=== PATIENT | female | born 1965 | race Caucasian/White ===

== ENCOUNTER 2017-11-30 12:11 | Inpatient (IN) ==
--- NOTE | 2017-11-30 12:35 | ED ---
HPI General Chief Complaint: Extremity Injury, Lower Stated Complaint: Evac/fall/lt foot injury Time Seen by Provider: 11/30/17 12:30 Source: patient and EMS Mode of arrival: wheelchair Limitations: no limitations History of Present Illness HPI Narrative: 52-year-old female patient presents to the ER today, states that she has slipped on water, fell on her bottom, and felt pain in her left foot area, states that she has neuropathy as well as a dropfoot, and she states that she was concerned because she does not feel pain very well, wants to get checked out for the injury. She denies any head injury or loss of consciousness. She denies any other injuries. She states that the left ankle and foot area looks more swollen and she cannot place weight on it. Patient usually uses a walker and ankle braces because of her drop foot bilaterally. She had just been released yesterday from [facility] because of a hand infection. Related Data Home Medications Medication Instructions Recorded Confirmed apixaban [Eliquis] 5 mg PO BID 11/30/17 11/30/17 folic acid 1 mg PO DAILY 11/30/17 11/30/17 furosemide [Lasix] 60 mg PO DAILY 11/30/17 11/30/17 levomilnacipran [Fetzima] 80 mg PO DAILY 11/30/17 11/30/17 levothyroxine [Synthroid] 88 mcg PO DAILY 11/30/17 11/30/17 metoprolol succinate 50 mg PO DAILY 11/30/17 11/30/17 ondansetron [Zofran ODT] 4 mg PO TID PRN 11/30/17 11/30/17 pantoprazole [Protonix] 40 mg PO DAILY 11/30/17 11/30/17 paroxetine HCl 7.5 mg PO DAILY 11/30/17 11/30/17 Allergies Allergy/AdvReac Type Severity Reaction Status Date / Time barium sulfate Allergy Severe Anaphylaxis Verified 11/30/17 12:28 ciprofloxacin [From Cipro] Allergy Severe Anaphylaxis Verified 11/30/17 12:28 Latex, Natural Rubber Allergy Severe Anaphylaxis Verified 11/30/17 12:28 metoclopramide [From Reglan] Allergy Severe Anaphylaxis Verified 11/30/17 12:28 Penicillins Allergy Severe Anaphylaxis Verified 11/30/17 12:28 vancomycin Allergy Severe Anaphylaxis Verified 11/30/17 12:28 Review of Systems Except as stated in HPI: all other systems reviewed are negative [facility] History History Provided By: Patient Medical History Medical History Diabetes (Acute) Hypertension (Acute) Insulin pump in place (Acute) Renal failure (Acute) Vascular dialysis catheter in place (Acute) Social History Social History Substance History: No History of Abuse Second Hand Smoke Exposure: No Smoking Status: Never smoker How Often Do You Have a Drink Containing Alcohol: Never Recent Travel in [facility] within the Last 8 Weeks: No Recent Out of Country Travel within the Last 8 Weeks: No Exam Narrative Exam Narrative: GENERAL: Well-developed middle-age female patient currently in moderate distress. Awake and oriented 3. SKIN: Focused skin assessment warm/dry. HEAD: Atraumatic. Normocephalic. EYES: Pupils equal and round. No scleral icterus. No injection or drainage. ENT: No nasal bleeding or discharge. Mucous membranes pink and moist. NECK: Trachea midline. No JVD. CARDIOVASCULAR: Regular rate and rhythm. No murmur appreciated. RESPIRATORY: No accessory muscle use. Clear to auscultation. Breath sounds equal bilaterally. GASTROINTESTINAL: Abdomen soft, non-tender, nondistended. Hepatic and splenic margins not palpable. MUSCULOSKELETAL: No obvious deformities. No clubbing. No cyanosis. No edema. EXTREMITIES: No clubbing, cyanosis, or edema. No joint tenderness, effusion, or edema noted. There is notable bilateral pitting edema of the legs, and notable invert rotation of the left ankle. There is a small laceration over the big toe on the left. NEUROLOGICAL: Awake and alert. No obvious cranial nerve deficits. Motor grossly within normal limits. Normal speech. PSYCHIATRIC: Appropriate mood and affect; insight and judgment normal. Course Hospital Course: X-rays were ordered for the left ankle and show significant fractures that entered the joint as well, and is mildly displaced. At this point, case was discussed with Dr. Kendall who recommends that we put her in a splint with best alignment possible and admit her to the main hospital since she will need further OR treatment. He also would like me to get CT of her ankle for further evaluation for treatment. Case was then discussed with Dr. Mcgregor for admission. Initial Documented Vital Signs Temperature 98.2 F 11/30/17 12:18 Pulse Rate 104 H 11/30/17 12:18 Respiratory Rate 18 11/30/17 12:18 Blood Pressure 197/84 H 11/30/17 12:18 Pulse Oximetry 96 11/30/17 12:18 Last Documented Vital Signs Temperature 98.2 F 11/30/17 12:18 Pulse Rate 104 H 11/30/17 12:18 Respiratory Rate 18 11/30/17 12:18 Blood Pressure 197/84 H 11/30/17 12:18 Pulse Oximetry 96 11/30/17 12:18 Medical Decision Making Differential Diagnosis Differential Diagnosis: Ankle strain versus fractures Imaging Data Radiologist's impression: ITS Impressions Ankle X-Ray 11/30/17 12:30 CONCLUSION: Fracture distal tibia and fibula as above Foot X-Ray 11/30/17 12:30 CONCLUSION: Fracture distal tibia and fibula as above. Discharge Plan Discharge Disposition Patient Disposition: 30 Still Patient Discharge Condition Condition: Stable Discharge Details Anticipated Discharge Date: 11/30/17 Diagnosis: Ankle fracture Physicians Team ED Provider: Margarita Wiley Primary Care Provider: Primary Care Physici,No Rxs /Orders / Referrals /Forms Prescriptions: No Action furosemide [Lasix] 40 mg Tablet 60 mg PO DAILY RF: 0 paroxetine HCl 10 mg Tablet 7.5 mg PO DAILY RF: 0 metoprolol succinate 50 mg Tablet Extended Release 24 Hr 50 mg PO DAILY RF: 0 levothyroxine [Synthroid] 88 mcg Tablet 88 mcg PO DAILY RF: 0 pantoprazole [Protonix] 40 mg Tablet,Delayed Release (Dr/Ec) 40 mg PO DAILY RF: 0 ondansetron [Zofran ODT] 4 mg Tablet,Disintegrating 4 mg PO TID PRN (Reason: Nausea) RF: 0 apixaban [Eliquis] 5 mg Tablet 5 mg PO BID RF: 0 levomilnacipran [Fetzima] 80 mg Capsule,Extended Release 24 Hr 80 mg PO DAILY RF: 0 folic acid 1 mg Tablet 1 mg PO DAILY RF: 0 Discharge Interventions Interventions: Vital Signs Last Done: 11/30/17 13:55 Status ED Status: With Doctor
--- NOTE | 2017-11-30 13:10 | XR ---
EXAM DATE: 11/30/2017 1:02 PM EDT AGE/SEX: 52 years / Female INDICATIONS: Left foot and ankle pain post falling. CLINICAL DATA: This is the patient's initial encounter. Patient reports that signs and symptoms have been present for 1 day and indicates a pain score of 9/10. MEDICAL/SURGICAL HISTORY: Diabetes. Hypertension. Renal failure . Previous ankle and foot fra cture. Left foot hardware COMPARISON: [facility], ANKLE COMPLETE LEFT MIN 3V, 11/30/2017. . FINDINGS: Osteopenia with fracture of the distal tibia and fibula with moderate angulation. Fracture line does extend into the tibial plafond. Transmetatarsal fusion noted. CONCLUSION: Fracture distal tibia and fibula as above. Electronically signed by: Joshua Machado MD 11/30/2017 1:08 PM EDT
--- NOTE | 2017-11-30 13:11 | XR ---
EXAM DATE: 11/30/2017 12:59 PM EDT AGE/SEX: 52 years / Female INDICATIONS: Left ankle and foot pain post falling. CLINICAL DATA: This is the patient's initial encounter. Patient reports that signs and symptoms have been present for 1 day and indicates a pain score of 10/10. MEDICAL/SURGICAL HISTORY: Diabetes. Hypertension. Renal failure. . Previous foot and ankle f racture. Left foot hardware. COMPARISON: [facility], FOOT COMPLETE LEFT 3V, 11/30/2017. . FINDINGS: Fracture distal tibia and fibula with a tibial component extending into the tibiotalar joint. Moderat e angulation. Talus intact. CONCLUSION: Fracture distal tibia and fibula as above Electronically signed by: Joshua Machado MD 11/30/2017 1:09 PM EDT
[2017-11-30] MEDS ORDERED: HYDROmorphone PF Inj 2 MG/ML Vial IV.PUSH ONE (13:44)
[2017-11-30] MEDS ORDERED: HYDROmorphone PF Inj 1 MG/ML Ampul IV.PUSH PRN (14:27)
[2017-11-30] MEDS ORDERED: Dextrose 50% in Water 50 ML Vial IV.PUSH PRN (14:28)
[2017-11-30 14:40] LABS: Chloride 96 meq/L (98-107); Potassium 4.4 meq/L (3.5-5.1); Sodium 133 meq/L (136-145)
--- NOTE | 2017-11-30 14:40 | P.HPIM ---
History of Present Illness Primary Care Physician: No Primary Care Physician Chief Complaint: 'I fell this morning.' History of Present Illness: patient is a 52 y/o female with history of ESRD-on HD, hypertension, diabetes, neuropathy who presented to ER after she fell earlier this morning. she was just released from [facility] after she was treated with right hand infection. she says that this morning when she was trying to go to bathroom she lost her balance and fell- after which she started to have some pain to the left ankle. she denies any syncopal episodes or any prodromal symptoms before the fall.she's on // schedule for her HD. - Diagnosis (1) Ankle fracture (2) ESRD (end stage renal disease) (3) Hypertension (4) Infection of right hand (5) Diabetes mellitus (6) DVT (deep venous thrombosis) Inpatient Certification: I certify that the inpatient services were ordered in accordance with Medicare regulations governing the order. This includes certification that hospital inpatient services are reasonable and necessary and in the case of services not specified as inpatient-only under 42 CFR 419.22(n), that they are appropriately provided as inpatient services in accordance to with the 2-midnight benchmark under 43 CFR 412.3(e) Review of Systems All other systems reviewed negative except as stated in HPI PMFSH - History History Provided By: Patient - Medical History Medical History: Medical History (Last Updated 12/01/17 @ 00:12 by Almita Zapata RN) Carpal tunnel syndrome, right upper limb Complication of vascular access for dialysis End-stage renal disease on hemodialysis Diabetes Hypertension Insulin pump in place Renal failure Vascular dialysis catheter in place - Surgical History Surgical History: Surgical History (Last Updated 12/01/17 @ 00:13 by Almita Zapata RN) Status post debridement - Tobacco History Second Hand Smoke Exposure: No Smoking Status: Never smoker - Alcohol History How Often Do You Have a Drink Containing Alcohol: Never - Substance Use History Substance History: No History of Abuse - Travel History Recent Travel in the [place] Within the Last 8 Weeks: No Recent Travel Out of the Country Within the Last 8 Weeks: No - Immunization History Tetanus Immunization: >5 Years Hx Influenza Vaccine This Season: No Medications and Allergies Active Medications: Active Medications Sodium Chloride (Ns Flush) 2 ml IV.FLUSH PRN PRN PRN Reason: FLUSH AFTER USING IV ACCESS Allergies Allergy/AdvReac Type Severity Reaction Status Date / Time barium sulfate Allergy Severe Anaphylaxis Verified 11/30/17 12:28 ciprofloxacin [From Cipro] Allergy Severe Anaphylaxis Verified 11/30/17 12:28 Latex, Natural Rubber Allergy Severe Anaphylaxis Verified 11/30/17 12:28 metoclopramide [From Reglan] Allergy Severe Anaphylaxis Verified 11/30/17 12:28 Penicillins Allergy Severe Anaphylaxis Verified 11/30/17 12:28 vancomycin Allergy Severe Anaphylaxis Verified 11/30/17 12:28 Home Medications Medication Instructions Recorded Confirmed Type apixaban [Eliquis] 5 mg PO BID 11/30/17 11/30/17 History folic acid 1 mg PO DAILY 11/30/17 11/30/17 History furosemide [Lasix] 60 mg PO BID 11/30/17 12/01/17 History levomilnacipran [Fetzima] 80 mg PO BID 11/30/17 12/01/17 History levothyroxine [Synthroid] 88 mcg PO DAILY 11/30/17 11/30/17 History metoprolol succinate 50 mg PO BID 11/30/17 12/01/17 History ondansetron [Zofran ODT] 4 mg PO TID PRN 11/30/17 11/30/17 History pantoprazole [Protonix] 40 mg PO DAILY 11/30/17 11/30/17 History paroxetine HCl 7.5 mg PO DAILY 11/30/17 11/30/17 History Exam Vital signs: Vital Signs 11/30/17 12:18 11/30/17 13:55 Temperature 98.2 F Pulse Rate 104 H 102 H Respiratory Rate 18 18 Blood Pressure 197/84 H 203/97 H Pulse Oximetry 96 95 Intake & Output 11/29/17 11/30/17 11/30/17 18:59 06:59 18:59 Weight 86.183 kg - Constitutional no acute distress - Routine HEENT Exam Head: Present: atraumatic - Routine Neck Exam Present: supple, full ROM - Routine Respiratory Exam Present: CTA bilaterally - Routine Cardiovascular Exam Present: RRR - Routine Abdominal Exam Present: soft - Routine Extremities Exam Comments: bilateral pedal edema with swelling of the left foot/ankle. right hand- s/p recent surgery-covered with clean dressing. - Routine Neurological Exam Present: alert, oriented X3 Results - Labs CBC & Chem 7: 12/02/17 08:30 12/01/17 05:57 - Imaging Impressions Ankle X-Ray 11/30/17 12:30 CONCLUSION: Fracture distal tibia and fibula as above Foot X-Ray 11/30/17 12:30 CONCLUSION: Fracture distal tibia and fibula as above. Caprini VTE Risk Assessment Caprini VTE Risk Assessment: Moderate/High Risk (score >= 2) VTE Pharmacological Exception Reason: Postop bleeding Caprini Risk Assessment Model: Point Value = 1 Point Value = 2 Point Value = 3 Point Value = 5 Age 41-60 Minor surgery BMI > 25 kg/m2 Swollen legs Varicose veins or History of unexplained or recurrent spontaneous Oral contraceptives or hormone replacement Sepsis (< 1 month) Serious lung disease, including pneumonia (< 1 month) Abnormal pulmonary function Acute myocardial infarction Congestive heart failure (< 1 month) History of inflammatory bowel disease Medical patient at bed rest Age 61-74 Arthroscopic surgery Major open surgery (> 45 min) Laparoscopic surgery (> 45 min) Malignancy Confined to bed (> 72 hours) Immobilizing plaster cast Central venous access Age >= 75 History of VTE Family history of VTE Factor V Leiden Prothrombin [id number] Lupus anticoagulant Anticardiolipin antibodies Elevated serum homocysteine Heparin-induced thrombocytopenia Other congenital or acquired thrombophilia Stroke (< 1 month) Elective arthroplasty Hip, pelvis, or leg fracture Acute spinal cord injury (< 1 month) Prophylaxis Regimen: Total Risk Factor Score Risk Level Prophylaxis Regimen 0-1 Low Early ambulation 2 Moderate Order ONE of the following: *Sequential Compression Device (SCD) *Heparin 5000 units SQ BID 3-4 Higher Order ONE of the following medications: *Heparin 5000 units SQ TID *Enoxaparin/Lovenox 40 mg SQ daily (WT < 150 kg, CrCl > 30 mL/min) *Enoxaparin/Lovenox 30 mg SQ daily (WT < 150 kg, CrCl > 10-29 mL/min) *Enoxaparin/Lovenox 30 mg SQ BID (WT < 150 kg, CrCl > 30 mL/min) AND/OR *Sequential Compression Device (SCD) 5 or more Highest Order ONE of the following medications: *Heparin 5000 units SQ TID (Preferred with Epidurals) *Enoxaparin/Lovenox 40 mg SQ daily (WT < 150 kg, CrCl > 30 mL/min) *Enoxaparin/Lovenox 30 mg SQ daily (WT < 150 kg, CrCl > 10-29 mL/min) *Enoxaparin/Lovenox 30 mg SQ BID (WT < 150 kg, CrCl > 30 mL/min) AND *Sequential Compression Device (SCD) Assessment and Plan - Assessment (1) Ankle fracture Code(s): S82.899A - Other fracture of unspecified lower leg, initial encounter for closed fracture Status: Acute Plan: continue with pain control-will consult ortho. (2) ESRD (end stage renal disease) Code(s): N18.6 - End stage renal disease Status: Chronic Plan: on /W/F schedule- will consult nephrology. (3) Hypertension Code(s): I10 - Essential (primary) hypertension Status: Chronic Plan: resume home meds and monitor. (4) Infection of right hand Code(s): L08.9 - Local infection of the skin and subcutaneous tissue, unspecified Status: Acute Plan: had recent surgical intervention- will obtain the medical record from [facility]. d/w 's PA ( her hand surgeon); recommended wound care, Keflex and outpatient f/u with . (5) Diabetes mellitus Code(s): E11.9 - Type 2 diabetes mellitus without complications Status: Acute Plan: using insulin pump at home- place on accu-check with SSI for now. (6) DVT (deep venous thrombosis) Code(s): I82.409 - Acute embolism and thrombosis of unspecified deep veins of unspecified lower extremity Status: Chronic Plan: patient says that she was diagnosed with DVT of the right upper extremity about eight months ago . hold anticoagulation for now-pending ortho evaluation. - Plan DVT prophylaxis- pending ortho evaluation. will obtain the medical record from [facility]. Discussed Condition With: ER physician, the patient and RN. (1) Ankle fracture Qualifiers: Laterality: left (3) Hypertension Qualifiers: Hypertension type: essential hypertension Qualified Code(s): I10 - Essential (primary) hypertension (5) Diabetes mellitus Qualifiers: Diabetes mellitus type: type 1 (6) DVT (deep venous thrombosis) Qualifiers: DVT location: upper extremity Laterality: right
[2017-11-30 14:43] LABS: Calcium 7.6 mg/dL (8.5-10.1)
[2017-11-30 14:44] LABS: Albumin 1.6 g/dL (3.4-5.0); Anion Gap 10 meq/L (5-15); Blood Urea Nitrogen 25 mg/dL (7-18); Glucose,Random 380 mg/dL (74-106)
[2017-11-30 14:47] LABS: Aspartate Aminotransferase 7 U/L (15-37); Glomerular Filtration Rate 8 mL/min (>89)
[2017-11-30 14:49] LABS: Total Protein 6.4 g/dL (6.4-8.2)
[2017-11-30 14:50] LABS: Alkaline Phosphatase 147 U/L (45-117)
[2017-11-30 14:55] LABS: Baso % (Auto) 0.4 % (0.0-2.0); Eos # (Auto) 0.3 th/mm3 (0.0-0.4); Eos % (Auto) 2.2 % (0.0-4.0); Hemoglobin 7.1 gm/dL (11.6-15.3); Lymph # (Auto) 1.3 th/mm3 (1.0-4.8); Lymph % (Auto) 10.9 % (9.0-44.0); Mean Corpuscular HGB Conc 33.7 % (32.0-36.0); Mean Corpuscular Hemoglobin 31.8 pg (27.0-34.0); Mean Corpuscular Volume 94.3 fL (80.0-100.0); Mean Platelet Volume 7.3 fL (7.0-11.0); Mono # (Auto) 0.9 th/mm3 (0.0-0.9); Mono % (Auto) 7.6 % (0.0-8.0); Neut # (Auto) 9.5 th/mm3 (1.8-7.7); Neut % (Auto) 78.9 % (16.0-70.0); Platelet Count 541 th/mm3 (150-450); Red Blood Count 2.23 mil/mm3 (4.00-5.30); Red Cell Distribution Width 14.8 % (11.6-17.2)
--- NOTE | 2017-11-30 16:08 | CT ---
EXAM DATE: 11/30/2017 3:20 PM EDT AGE/SEX: 52 years / Female INDICATIONS: Left ankle pain post fall. Evaluate fracture. CLINICAL DATA: This is the patient's initial encounter. Patient reports that signs and symptoms have been present for 1 day and indicates a pain score of 10/10. MEDICAL/SURGICAL HISTORY: None. None. RADIATION DOSE: 7.33 CTDI (mGy) COMPARISON: [facility], FOOT COMPLETE LEFT 3V, 11/30/2017. . TECHNIQUE: Multiple contiguous axial images were acquired using a multirow detector CT scanner witho ut contrast. Multiplanar reconstruction was performed in the sagittal and coronal planes. Using aut omated exposure control and adjustment of the mA and/or kV according to patient size, radiation dose was kept as low as reasonably achievable to obtain optimal diagnostic quality images. DICOM format i mage data is available electronically for review and comparison. FINDINGS: There is a pilon fracture of the distal tibia as well as a transverse fracture of the distal fibula w ith one small avulsion of the medial malleolus is also present. There is a small lucency involving th e lateral talar dome though the overlying cortical bone is intact. Half shaft's width medial displace ment of the distal fracture fragment. There is intra-articular extension of the fracture. CONCLUSION: 1. Fracture dislocation distal tibia and fibula as above. Electronically signed by: Timothy Solis MD 11/30/2017 4:06 PM EDT
[2017-11-30] MEDS: Sod Chloride 0.9% Inj 1,000 ML IV.CONT SCH (16:26)
[2017-11-30] MEDS ORDERED: Acetaminophen 325 MG Tablet PO PRN (16:49)
[2017-11-30] MEDS ORDERED: Heparin 10,000 UNITS/10 ML Vial (for IV use) IV.FLUSH PRN (16:49)
[2017-11-30] MEDS ORDERED: Sod Chloride 0.9% Inj 1,000 ML IV.CONT PRN (16:49)
[2017-11-30] MEDS ORDERED: Gelatin 12 MM/7 MM Topical Foam TOPICAL PRN (16:49)
[2017-11-30] MEDS ORDERED: Sod Chloride 0.9% Inj 1,000 ML OTHER PRN ×2 (16:49)
[2017-11-30] MEDS: Insulin NovoLOG Aspart Correctional Sugar Inj SQ SCH ×2 (16:50→21:28)
--- NOTE | 2017-11-30 17:22 | P.CONNP ---
History of Present Illness Consult date: 11/30/17 Reason for Consult: End-stage renal disease with need for hemodialysis Primary Care Provider: No Primary Care Physician Chief Complaint: 'I fell this morning.' History of Present Illness: 52-year-old patient with a history of diabetes mellitus, hypertension and subsequently end-stage renal disease secondary to diabetic nephropathy. The patient receives hemodialysis as an outpatient Tuesday and Tuesday at a dialysis facility in [place]. She frequently visits her sister in [place] however. Apparently fell down locally and presented to the emergency room and was diagnosed as having a fracture of the left ankle. Is tentatively scheduled for surgery. She did not have her dialysis today. Otherwise no verbal complaints. Review of Systems All other systems reviewed negative except as stated [facility] - History History Provided By: Patient - Medical History Medical History: Medical History (Last Updated 11/30/17 @ 17:15 by Liliana Linda MD) Complication of vascular access for dialysis End-stage renal disease on hemodialysis Diabetes Hypertension Insulin pump in place Renal failure Vascular dialysis catheter in place - Tobacco History Second Hand Smoke Exposure: No Smoking Status: Never smoker - Alcohol History How Often Do You Have a Drink Containing Alcohol: Never - Substance Use History Substance History: No History of Abuse - Travel History Recent Travel in the [place] Within the Last 8 Weeks: No Recent Travel Out of the Country Within the Last 8 Weeks: No - Immunization History Tetanus Immunization: >5 Years Hx Influenza Vaccine This Season: No Medications and Allergies Active Medications: Active Medications Acetaminophen (Tylenol) 650 mg PO UNSCH PRN PRN Reason: SEE LABEL COMMENTS Cephalexin Monohydrate (Keflex) 500 mg PO Q12HR CHAVO Clonidine HCl (Catapres) 0.1 mg PO UNSCH PRN PRN Reason: SEE LABEL COMMENTS Dextrose (D50w Vial) 50 ml IV.PUSH UNSCH PRN PRN Reason: PER HYPOGLYCEMIA PROTOCOL Diphenhydramine HCl (Benadryl) 25 mg PO UNSCH PRN PRN Reason: SEE LABEL COMMENTS Epoetin Sonny (Epogen Inj) 4,000 unit IV.PUSH UNSCH PRN PRN Reason: SEE LABEL COMMENTS Folic Acid (Folic Acid) 1 mg PO DAILY CHAVO Furosemide (Lasix) 60 mg PO DAILY CHAVO Gelatin (Gelfoam 12 Mm/7 Mm Topical) 1 foam TOPICAL PRN PRN PRN Reason: help stop bleeding from site Gentamicin Sulfate (Gentamicin Inj) 20 mg OTHER WITH DIALYSIS PRN PRN Reason: Dwell Gentamycin Lock Glucagon (Glucagon Inj) 1 mg OTHER PRN PRN PRN Reason: for Hypoglycemia Protocol Heparin Sodium (Porcine) (Heparin Inj) 8,000 units IV.FLUSH WITH DIALYSIS PRN PRN Reason: for machine prime Heparin Sodium (Porcine) (Heparin Inj) 1,000 units OTHER WITH DIALYSIS PRN PRN Reason: Dwell Heparin to Fill Catheter Hydromorphone HCl (Dilaudid Pf Inj) 1 mg IV.PUSH Q4H PRN PRN Reason: acute pain Sodium Chloride (Ns Inj) 1,000 mls @ 30 mls/hr IV.CONT .Q24H CHAVO Last Admin: 11/30/17 16:26 Dose: 30 mls/hr Sodium Chloride (Ns Inj) 1,000 mls @ 0 mls/hr OTHER .Q0M PRN PRN Reason: for prime and rinse back Sodium Chloride (Ns Inj) 1,000 mls @ 200 mls/hr OTHER .Q5H PRN PRN Reason: for dialyzer flush PRN Sodium Chloride (Ns Inj) 1,000 mls @ 0 mls/hr IV.CONT .Q0M PRN PRN Reason: hypotension / volume replace Insulin Aspart (Novolog Insulin Suppl Scale Inj) 0 unit SQ ACHS [facility]; Protocol Last Admin: 11/30/17 16:50 Dose: 9 unit Levothyroxine Sodium (Synthroid) 88 mcg PO DAILY@0600 [facility] Metoprolol Succinate (Toprol Xl) 50 mg PO DAILY [facility] Nitroglycerin (Nitrostat Sl) 0.4 mg SL Q5M PRN PRN Reason: CHEST PAIN Ondansetron HCl (Zofran Inj) 4 mg IV.PUSH UNSCH PRN PRN Reason: NAUSEA OR VOMITING Pantoprazole Sodium (Protonix) 40 mg PO DAILY [facility] Paroxetine HCl (Paxil Liq) 7.5 mg PO DAILY [facility] Patient Own Medication ( Levomilnacipran [ Fetzima] 80 Mg) 0 each PO DAILY [facility] Sodium Chloride (Ns Flush) 2 ml IV.FLUSH PRN PRN PRN Reason: FLUSH AFTER USING IV ACCESS Sodium Chloride (Ns Flush) 5 ml IV.FLUSH PRN PRN PRN Reason: flush each lumen during HD Allergies Allergy/AdvReac Type Severity Reaction Status Date / Time barium sulfate Allergy Severe Anaphylaxis Verified 11/30/17 12:28 ciprofloxacin [From Cipro] Allergy Severe Anaphylaxis Verified 11/30/17 12:28 Latex, Natural Rubber Allergy Severe Anaphylaxis Verified 11/30/17 12:28 metoclopramide [From Reglan] Allergy Severe Anaphylaxis Verified 11/30/17 12:28 Penicillins Allergy Severe Anaphylaxis Verified 11/30/17 12:28 vancomycin Allergy Severe Anaphylaxis Verified 11/30/17 12:28 Home Medications Medication Instructions Recorded Confirmed Type apixaban [Eliquis] 5 mg PO BID 11/30/17 11/30/17 History folic acid 1 mg PO DAILY 11/30/17 11/30/17 History furosemide [Lasix] 60 mg PO DAILY 11/30/17 11/30/17 History levomilnacipran [Fetzima] 80 mg PO DAILY 11/30/17 11/30/17 History levothyroxine [Synthroid] 88 mcg PO DAILY 11/30/17 11/30/17 History metoprolol succinate 50 mg PO DAILY 11/30/17 11/30/17 History ondansetron [Zofran ODT] 4 mg PO TID PRN 11/30/17 11/30/17 History pantoprazole [Protonix] 40 mg PO DAILY 11/30/17 11/30/17 History paroxetine HCl 7.5 mg PO DAILY 11/30/17 11/30/17 History Exam Vital signs: Vital Signs 11/30/17 12:18 11/30/17 13:55 11/30/17 14:20 Temperature 98.2 F Pulse Rate 104 H 102 H 95 H Respiratory Rate 18 18 18 Blood Pressure 197/84 H 203/97 H 164/87 H Pulse Oximetry 96 95 95 11/30/17 15:45 11/30/17 16:58 Temperature Pulse Rate 97 H Respiratory Rate 18 18 Blood Pressure 197/96 H Pulse Oximetry 96 Intake & Output 11/29/17 11/30/17 11/30/17 18:59 06:59 18:59 Weight 86.183 kg Narrative: GENERAL: Slightly obese white female lying in bed not in respiratory distress. She does appear to be chronically debilitated in appearance. SKIN: Warm and dry. HEAD: Normocephalic. EYES: No scleral icterus. No injection or drainage. NECK: Supple, trachea midline. No JVD or lymphadenopathy. CARDIOVASCULAR: Regular rate and rhythm without murmurs, gallops, or rubs. Hemodialysis PermCath present in the right infraclavicular area. RESPIRATORY: Breath sounds equal bilaterally. No accessory muscle use. GASTROINTESTINAL: Abdomen soft, non-tender, nondistended. MUSCULOSKELETAL: No cyanosis, 2+ pitting edema lower extremities. Dressing overlying left ankle was not disturbed. There is also a dressing overlying her left hand which was also not disturbed. Results - Lab Results 11/30/17 14:20 11/30/17 14:20 Most recent lab results Calcium 7.6 mg/dL (8.5-10.1) L 11/30/17 14:20 Assessment and Plan - Assessment (1) ESRD (end stage renal disease) Code(s): N18.6 - End stage renal disease Status: Chronic Plan: Apparently secondary to diabetic nephropathy. Continue hemodialysis Tuesday schedule unless otherwise indicated. Current access a hemodialysis PermCath. Dialysis service contacted and patient is to have dialysis today. Patient may be transferred to the main campus for ankle surgery. Will continue to follow if she is transferred. If patient discharged however she is to return to care of her regular outpatient rim turning finisher who does not have privileges at this institution. Her chronic outpatient dialysis facility is [facility] Noted patient has multiple antibiotic allergies to vancomycin, Cipro, penicillin. In addition allergy to latex. Medication should be adjusted for the patient's end-stage renal disease when indicated. Avoid gadolinium. (2) Anemia of renal disease Code(s): D63.1 - Anemia in chronic kidney disease Status: Acute Plan: Continue Epogen for anemia of renal disease. Check iron studies. (3) Hypertension Code(s): I10 - Essential (primary) hypertension Status: Chronic (3) Hypertension Qualifiers: Hypertension type: essential hypertension Qualified Code(s): I10 - Essential (primary) hypertension
[2017-11-30] MEDS: Heparin 10,000 UNITS/10 ML Vial (for IV use) OTHER PRN (20:04)
[2017-12-01] MEDS: Dextrose 5%/NaCl 0.9% Inj 1,000 ML IV.CONT SCH (01:16)
[2017-12-01] MEDS ORDERED: Chlorhexidine Gluconate 2% 1 Pack (2 Cloths) TOPICAL SCH (01:45)
[2017-12-01] MEDS ORDERED: Sodium Chlor 0.9% Inj 500 ML IV.SIG SCH (02:00)
[2017-12-01] MEDS: HYDROmorphone PF Inj 2 MG/ML Vial IV.PUSH PRN ×4 (03:16→20:49)
[2017-12-01] MEDS: Levothyroxine 88 MCG Tablet PO SCH (05:29)
--- NOTE | 2017-12-01 06:44 | P.PNOP ---
Subjective Interval history: Kavita is a 52-year-old female with end-stage renal disease, dialysis, diabetes, Charcot foot, osteoporosis, and foot drop on the left lower extremity. She had a slip and fall yesterday at home. She has a closed distal tibia and fibula fracture of the left leg. No other orthopedic complaints. She is a previous wound to the right hand that is managed by hand surgeon. Is possibly a spider bite. There is necrosis along the index finger Physical Exam Vital signs: Vital Signs 11/30/17 12:18 11/30/17 13:55 11/30/17 14:20 Temperature 98.2 F Pulse Rate 104 H 102 H 95 H Respiratory Rate 18 18 18 Blood Pressure 197/84 H 203/97 H 164/87 H Pulse Oximetry 96 95 95 11/30/17 15:45 11/30/17 16:58 11/30/17 20:40 Temperature Pulse Rate 97 H 107 H Respiratory Rate 18 18 16 Blood Pressure 197/96 H 139/73 Pulse Oximetry 96 94 L 11/30/17 20:42 12/01/17 00:00 12/01/17 02:32 Temperature 98.8 F Pulse Rate 109 H 103 H Respiratory Rate 18 Blood Pressure 159/88 H Pulse Oximetry 95 97 12/01/17 03:46 12/01/17 04:00 Temperature 99.1 F Pulse Rate 101 H Respiratory Rate 18 18 Blood Pressure 126/84 Pulse Oximetry 95 Intake & Output 11/30/17 11/30/17 12/01/17 06:59 18:59 06:59 Output Total 1999 Balance -1999 Weight 86.183 kg Output: Hemodialysis Amount 1999 Other: Date of Last Bowel Movement 11/29/17 Narrative: Left lower extremity: No pain with hip or knee range of motion. Splint is in place. There is good capillary refills to toes. She has no dorsiflexion of toes but is weak plantar flexion. No sensation in toes or foot Results - Labs CBC & Chem 7: 11/30/17 14:20 11/30/17 14:20 Laboratory Results - last 24 hr 11/30/17 11/30/17 11/30/17 14:20 14:20 16:13 CBC w Diff Auto diff final WBC 12.0 H RBC 2.23 L Hgb 7.1 L Hct 21.0 L MCV 94.3 MCH 31.8 MCHC 33.7 RDW 14.8 Plt Count 541 H MPV 7.3 Neut % (Auto) 78.9 H Lymph % (Auto) 10.9 Ada % (Auto) 7.6 Eos % (Auto) 2.2 Baso % (Auto) 0.4 Neut # (Auto) 9.5 H Lymph # (Auto) 1.3 Ada # (Auto) 0.9 Eos # (Auto) 0.3 Baso # (Auto) 0.0 WBC Differential . Differential Comment . Sodium 133 L Potassium 4.4 Chloride 96 L Carbon Dioxide 27.0 Anion Gap 10 BUN 25 H Creatinine 5.80 H Estimated GFR 8 L POC Glucose 376 H Random Glucose 380 H Calcium 7.6 L Total Bilirubin 0.1 L AST 7 L ALT Less than 6 L Alkaline Phosphatase 147 H Total Protein 6.4 Albumin 1.6 L 11/30/17 12/01/17 12/01/17 21:10 00:32 02:26 CBC w Diff WBC RBC Hgb Hct MCV MCH MCHC RDW Plt Count MPV Neut % (Auto) Lymph % (Auto) Ada % (Auto) Eos % (Auto) Baso % (Auto) Neut # (Auto) Lymph # (Auto) Ada # (Auto) Eos # (Auto) Baso # (Auto) WBC Differential Differential Comment Sodium Potassium Chloride Carbon Dioxide Anion Gap BUN Creatinine Estimated GFR POC Glucose 71 85 117 H Random Glucose Calcium Total Bilirubin AST ALT Alkaline Phosphatase Total Protein Albumin 12/01/17 05:40 CBC w Diff WBC RBC Hgb Hct MCV MCH MCHC RDW Plt Count MPV Neut % (Auto) Lymph % (Auto) Ada % (Auto) Eos % (Auto) Baso % (Auto) Neut # (Auto) Lymph # (Auto) Ada # (Auto) Eos # (Auto) Baso # (Auto) WBC Differential Differential Comment Sodium Potassium Chloride Carbon Dioxide Anion Gap BUN Creatinine Estimated GFR POC Glucose 130 H Random Glucose Calcium Total Bilirubin AST ALT Alkaline Phosphatase Total Protein Albumin - Imaging Impressions Ankle X-Ray 11/30/17 12:30 CONCLUSION: Fracture distal tibia and fibula as above Foot X-Ray 11/30/17 12:30 CONCLUSION: Fracture distal tibia and fibula as above. Ankle CT 11/30/17 13:44 CONCLUSION: 1. Fracture dislocation distal tibia and fibula as above. Assessment and Plan - Assessment and Plan Left distal tibia and fibula fractures Due to fragility fracture and location of fracture we will plan on surgery today for external fixation. She understands with her osteoporosis, diabetes and lack of sensation that there is risk with any surgery to the lower extremity. Any wound complications could lead to chronic wounds or even amputation. N.p.o. Sign consents
[2017-12-01 07:04] LABS: Albumin 1.6 g/dL (3.4-5.0); Calcium 8.1 mg/dL (8.5-10.1); Carbon Dioxide 29.9 meq/L (21.0-32.0); Potassium 3.9 meq/L (3.5-5.1)
[2017-12-01 07:05] LABS: Phosphorus 3.1 mg/dL (2.5-4.9)
[2017-12-01 07:06] LABS: % Iron Saturation 10.7 % (20-50)
[2017-12-01 07:40] LABS: Hepatitits B Surface Antigen Nonreactive (Nonreactive)
[2017-12-01 08:01] LABS: Hepatitis A IgM Antibody Nonreactive (Nonreactive)
[2017-12-01] MEDS: Furosemide 40 MG Tablet PO SCH (08:14)
[2017-12-01] MEDS: Folic Acid 1 MG Tablet PO SCH (08:26)
[2017-12-01] MEDS: Insulin NovoLOG Aspart Correctional Sugar Inj SQ SCH ×3 (08:39→17:00)
[2017-12-01] MEDS: PARoxetine Liq 20 MG/10 ML UDC PO SCH (08:41)
[2017-12-01] MEDS ORDERED: LEVOMILNACIPRAN 80 MG PO SCH (09:00)
--- NOTE | 2017-12-01 10:02 | P.PNIM ---
Subjective Interval history: in no acute distress. pain is fairly controlled.no new complaints. awaiting ortho intervention. Physical Exam Vital signs: Vital Signs 11/30/17 12:18 11/30/17 13:55 11/30/17 14:20 Temperature 98.2 F Pulse Rate 104 H 102 H 95 H Respiratory Rate 18 18 18 Blood Pressure 197/84 H 203/97 H 164/87 H Pulse Oximetry 96 95 95 11/30/17 15:45 11/30/17 16:58 11/30/17 20:40 Temperature Pulse Rate 97 H 107 H Respiratory Rate 18 18 16 Blood Pressure 197/96 H 139/73 Pulse Oximetry 96 94 L 11/30/17 20:42 12/01/17 00:00 12/01/17 02:32 Temperature 98.8 F Pulse Rate 109 H 103 H Respiratory Rate 18 Blood Pressure 159/88 H Pulse Oximetry 95 97 12/01/17 03:46 12/01/17 04:00 12/01/17 08:00 Temperature 99.1 F 97.6 F Pulse Rate 101 H 101 H Respiratory Rate 18 18 18 Blood Pressure 126/84 141/69 H Pulse Oximetry 95 92 L Intake & Output 11/30/17 12/01/17 12/01/17 18:59 06:59 18:59 Output Total 1999 Balance -1999 -1999 Weight 86.183 kg Output: Hemodialysis Amount 1999 Other: Date of Last Bowel Movement 11/29/17 - Routine Respiratory Exam Present: CTA bilaterally - Routine Cardiovascular Exam Present: RRR - Routine Abdominal Exam Present: soft - Routine Extremities Exam Comments: left leg and right hand covered with clean dressing. - Routine Neurological Exam Present: alert, oriented X3 Results - Labs CBC & Chem 7: 11/30/17 14:20 12/01/17 05:57 Laboratory Results - last 24 hr 11/30/17 11/30/17 11/30/17 14:20 14:20 16:13 CBC w Diff Auto diff final WBC 12.0 H RBC 2.23 L Hgb 7.1 L Hct 21.0 L MCV 94.3 MCH 31.8 MCHC 33.7 RDW 14.8 Plt Count 541 H MPV 7.3 Neut % (Auto) 78.9 H Lymph % (Auto) 10.9 [place] % (Auto) 7.6 Eos % (Auto) 2.2 Baso % (Auto) 0.4 Neut # (Auto) 9.5 H Lymph # (Auto) 1.3 [place] # (Auto) 0.9 Eos # (Auto) 0.3 Baso # (Auto) 0.0 WBC Differential . Differential Comment . Sodium 133 L Potassium 4.4 Chloride 96 L Carbon Dioxide 27.0 Anion Gap 10 BUN 25 H Creatinine 5.80 H Estimated GFR 8 L POC Glucose 376 H Random Glucose 380 H Calcium 7.6 L Phosphorus Iron TIBC % Saturation Total Bilirubin 0.1 L AST 7 L ALT Less than 6 L Alkaline Phosphatase 147 H Total Protein 6.4 Albumin 1.6 L Hepatitis A IgM Ab Hep Bs Antigen Hep B Core IgM Ab Hep C IgG Ab 11/30/17 12/01/17 12/01/17 21:10 00:32 02:26 CBC w Diff WBC RBC Hgb Hct MCV MCH MCHC RDW Plt Count MPV Neut % (Auto) Lymph % (Auto) [place] % (Auto) Eos % (Auto) Baso % (Auto) Neut # (Auto) Lymph # (Auto) [place] # (Auto) Eos # (Auto) Baso # (Auto) WBC Differential Differential Comment Sodium Potassium Chloride Carbon Dioxide Anion Gap BUN Creatinine Estimated GFR POC Glucose 71 85 117 H Random Glucose Calcium Phosphorus Iron TIBC % Saturation Total Bilirubin AST ALT Alkaline Phosphatase Total Protein Albumin Hepatitis A IgM Ab Hep Bs Antigen Hep B Core IgM Ab Hep C IgG Ab 12/01/17 12/01/17 12/01/17 05:40 05:57 05:57 CBC w Diff WBC RBC Hgb Hct MCV MCH MCHC RDW Plt Count MPV Neut % (Auto) Lymph % (Auto) [place] % (Auto) Eos % (Auto) Baso % (Auto) Neut # (Auto) Lymph # (Auto) [place] # (Auto) Eos # (Auto) Baso # (Auto) WBC Differential Differential Comment Sodium 139 Potassium 3.9 Chloride 98 Carbon Dioxide 29.9 Anion Gap 11 BUN 15 Creatinine 4.27 H Estimated GFR 11 L POC Glucose 130 H Random Glucose 107 H D Calcium 8.1 L Phosphorus 3.1 Iron 15 L TIBC 140 L % Saturation 10.7 L Total Bilirubin AST ALT Alkaline Phosphatase Total Protein Albumin 1.6 L Hepatitis A IgM Ab Nonreactive Hep Bs Antigen Nonreactive Hep B Core IgM Ab Nonreactive Hep C IgG Ab Nonreactive 12/01/17 12/01/17 06:34 07:54 CBC w Diff WBC RBC Hgb Hct MCV MCH MCHC RDW Plt Count MPV Neut % (Auto) Lymph % (Auto) [place] % (Auto) Eos % (Auto) Baso % (Auto) Neut # (Auto) Lymph # (Auto) [place] # (Auto) Eos # (Auto) Baso # (Auto) WBC Differential Differential Comment Sodium Potassium Chloride Carbon Dioxide Anion Gap BUN Creatinine Estimated GFR POC Glucose 122 H 145 H Random Glucose Calcium Phosphorus Iron TIBC % Saturation Total Bilirubin AST ALT Alkaline Phosphatase Total Protein Albumin Hepatitis A IgM Ab Hep Bs Antigen Hep B Core IgM Ab Hep C IgG Ab - Imaging Impressions Ankle X-Ray 11/30/17 12:30 CONCLUSION: Fracture distal tibia and fibula as above Foot X-Ray 11/30/17 12:30 CONCLUSION: Fracture distal tibia and fibula as above. Ankle CT 11/30/17 13:44 CONCLUSION: 1. Fracture dislocation distal tibia and fibula as above. Assessment and Plan - Assessment (1) Ankle fracture Code(s): S82.899A - Other fracture of unspecified lower leg, initial encounter for closed fracture Status: Acute Plan: continue with pain control-ortho consulted; surgical intervention per ortho. (2) ESRD (end stage renal disease) Code(s): N18.6 - End stage renal disease Status: Chronic Plan: on M/W/F HD schedule- nephrology consulted. (3) Hypertension Code(s): I10 - Essential (primary) hypertension Status: Chronic Plan: resumed home meds and monitor. (4) Infection of right hand Code(s): L08.9 - Local infection of the skin and subcutaneous tissue, unspecified Status: Acute Plan: had recent surgical intervention- will obtain the medical record from [facility]. previously d/w 's PA ( her hand surgeon); recommended wound care, Keflex and outpatient f/u with . (5) Diabetes mellitus Code(s): E11.9 - Type 2 diabetes mellitus without complications Status: Acute Plan: using insulin pump at home- place on accu-check with SSI for now. (6) DVT (deep venous thrombosis) Code(s): I82.409 - Acute embolism and thrombosis of unspecified deep veins of unspecified lower extremity Status: Chronic Plan: patient says that she was diagnosed with DVT of the right upper extremity about eight months ago . hold anticoagulation for now-pending ortho evaluation. (7) Anemia Code(s): D64.9 - Anemia, unspecified Status: Acute Plan: of chronic disease- will monitor H/H and transfuse as needed. - Plan DVT prophylaxis- per ortho. Discharge Planning: awaiting ortho surgical intervention. (1) Ankle fracture Qualifiers: Laterality: left (3) Hypertension Qualifiers: Hypertension type: essential hypertension Qualified Code(s): I10 - Essential (primary) hypertension (5) Diabetes mellitus Qualifiers: Diabetes mellitus type: type 1 (6) DVT (deep venous thrombosis) Qualifiers: DVT location: upper extremity Laterality: right (7) Anemia Qualifiers: Anemia type: unspecified type Qualified Code(s): D64.9 - Anemia, unspecified
--- NOTE | 2017-12-01 13:38 | ECG ---
Date Performed: 11/30/2017 Time Performed: 15:34:28 PTAGE: 52 years EKG: Sinus rhythm NO PREVIOUS TRACING FOR COMPARISON DOCTOR: Trell Hernandez Interpretating Date/Time 12/01/2017 13:34:26
--- NOTE | 2017-12-01 14:17 | P.PNWCN ---
Wound Care Nurse Consult Description: Received consult from Doctor Garcia for wound management of R hand. Communicated with: Doctor Jose and RN Julito Machuca [address] Recommendation: 1.Please cleanse dehisced surgical wound to R hand with normal saline and pat dry. 2. Apply Silvadene mixed with lidocaine (Ritter's cream) to open wound bed and cover with gauze pads secure with rolled gauze and tape. change dressing daily 3. [place] R tip of fifth digit eschar (black tissue) with povidone iodine and cover with dry gauze to protect BID 4. Cleanse wound to R wrist with normal saline and pat dry. Apply Optifoam AG gentle cut to fit over wound bed. Secure dressing with rolled gauze and tape. Change dressing every 3 days or as need for saturation is dislodgement. Wound/Pressure Injury - Patient Status Premedicated for Pain Prior to Dressing Change: Yes - Wound Right Hand Wound Assessment: Ongoing Is This a Chronic Wound: No Requested from Provider a Wound Care Consult: Yes (Wound care saw patient today) Length: 7.6 (cm) Width: 1.5 (cm) Depth: 0.6 (~0.6cm) Wound Bed Appearance: Domino, Yellow Wound Bed Appearance: Dehisced surgical wound extends from the base of the palmar surface of the R hand to the R fifth digit .Wound bed presents with 3 sutures, ~50% pale pink tissue and ~50% pale yellow tissue that is moist Surrounding Tissue Appearance: Blanched/Dull (Slight erythema to periwound at 6 o'clock) Surrounding Tissue Temperature: Warm Drainage Description: Serosanguinous Drainage Amount: Scant (scant sero-sanguinous drainage is noted to removed dressing,but no active drainage is seen) Drainage Odor: No Odor Dressing Status: Changed Cleansing Solution: Saline Wound Packing Type: Gauze Packing Strips (iodoform 1/2 inch packing strip) Primary Dressing: Gauze Pad Cover Dressing: Gauze Roll/Wrap Tape Type: Paper Wound Dressing Change Date: 12/01/17 Right Wrist Wound Assessment: Ongoing Is This a Chronic Wound: No Requested from Provider a Wound Care Consult: Yes (Wound care saw patient today) Length: 4 (cm) Width: 1.3 (cm) Depth: 0.4 (~0.4cm) Wound Bed Appearance: Open surgical wound bed to R wrist presents with 100% pale red tissue Surrounding Tissue Appearance: Domino Surrounding Tissue Temperature: Warm Drainage Description: Serosanguinous Drainage Amount: Scant Drainage Odor: No Odor Dressing Status: Changed Cleansing Solution: Saline Primary Dressing: Optifoam AG nonadhesive Cover Dressing: Gauze Roll/Wrap Tape Type: Paper Wound Dressing Change Date: 12/01/17 Wound Margin Description: Wound margins are open, steep and well defined. Right Finger - 5th Digit Wound Assessment: Ongoing Is This a Chronic Wound: No Requested from Provider a Wound Care Consult: Yes Wound Bed Appearance: Necrotic Wound Bed Appearance: 100% dry black eschar to the tip of the R fifth digit Surrounding Tissue Appearance: Shiny (There is an open surgical wound just proximally to eschar) Drainage Amount: None Drainage Odor: No Odor Dressing Status: Changed Cleansing Solution: povidone iodine Primary Dressing: Gauze Pad Tape Type: Paper Wound Dressing Change Date: 12/01/17 Right Lower Finger - 5th Digit Wound Bed Appearance: 100% dry black eschar to the tip of the R fifth digit - Additional Information Patient seen on for evaluation of wound management of R hand. Patient is laying in bed upon marketing writer's arrival, R hand is elevated on pillow.Patient was [facility] by hand surgeon Doctor Sue. Surgery was done on R hand and R wrist.due to abscess from a bite.Removed moist to dry dressing in place to R hand to reveal wounds to R hand and R wrist. R tip of fifth digit also presents with dry black eschar. Cleansed all wounds with normals saline and patted dry. R wrist wound presents with 100% pale red tissue. Wound margins are steep. Wound measurements are noted above.Wound is a surgical wound.Wound culture obtained. Covered wound with Optifoam AG non-adhesive dressing and secured with rolled gauze and tape. R hand wound presents as dehisced surgical wound with 3 sutures to wound bed. Wound bed presents with ~50% pale pink tissue and ~50% pale yellow tissue that is moist and thin. Wound measurements are noted above. Removed dressing is noted scant sero-sanguinous drainage, no active drainage is noted from wound bed at this time. Wound is without foul odor.Wound culture obtained. Packed wound loosely with iodoform packing strip. Then covered wound with dry 4x4 gauze pads, secured dressing with rolled gauze and tape. Povidone-iodine was painted on R tip of fifth digit dry black eschar, then covered with 4x4 gauze pad, and secured with paper tape. Dry black eschar measures ~1cm x ~1.5cm. Wound care recommendations are noted above.
[2017-12-02] MEDS: Insulin NovoLOG Aspart Correctional Sugar Inj SQ SCH ×5 (00:40→21:30)
[2017-12-02] MEDS: Sod Chloride 0.9% Inj 1,000 ML IV.CONT SCH (05:14)
[2017-12-02] MEDS: Levothyroxine 88 MCG Tablet PO SCH (05:14)
[2017-12-02] MEDS: HYDROmorphone PF Inj 2 MG/ML Vial IV.PUSH PRN ×3 (05:18→15:41)
[2017-12-02] MEDS: Dextrose 5%/NaCl 0.9% Inj 1,000 ML IV.CONT SCH (05:19)
--- NOTE | 2017-12-02 06:47 | P.PNOP ---
Subjective Interval history: Resting comfortably with pain controlled <Nacho Zaragoza - Last Filed: 12/02/17 06:44> Physical Exam Vital signs: Vital Signs 12/01/17 08:00 12/01/17 16:30 12/01/17 19:14 Temperature 97.6 F 99.9 F H Pulse Rate 101 H 99 H Respiratory Rate 18 16 Blood Pressure 141/69 H 173/84 H Pulse Oximetry 92 L 92 L 12/01/17 20:00 12/02/17 00:00 Temperature 98.3 F 99.3 F Pulse Rate 105 H 108 H Respiratory Rate 18 18 Blood Pressure 143/69 H 166/79 H Pulse Oximetry 92 L 93 L Intake & Output 12/01/17 12/01/17 12/02/17 06:59 18:59 06:59 Intake Total 1000 / 1000 Output Total 1999 / 1999 500 / 500 Balance -2000 / -2000 -500 / -500 1000 / 1000 Intake: IV 1000 / 1000 Output: Hemodialysis Amount 1999 / 1999 Urine Amount (Catheter) 500 / 500 Indwelling Urethral Catheter 500 / 500 Other: Date of Last Bowel Movement 11/29/17 12/02/17 Narrative: Left lower extremity: No pain with hip or knee range of motion. Splint is in place. There is good capillary refills to toes. She has no dorsiflexion of toes but is weak plantar flexion. No sensation in toes or foot - Urinary Catheter Management Indwelling Urethral Catheter Cath placed during this visit: yes Reason for continuing: Chronic Urinary Retention Insertion date: 12/01/17 Insertion time: 15:34 <Nacho Zaragoza - Last Filed: 12/02/17 06:44> Vital signs: Vital Signs 12/01/17 16:30 12/01/17 19:14 12/01/17 20:00 Temperature 99.9 F H 98.3 F Pulse Rate 99 H 105 H Respiratory Rate 16 18 Blood Pressure 173/84 H 143/69 H Pulse Oximetry 92 L 92 L 12/02/17 00:00 12/02/17 06:47 Temperature 99.3 F 98.9 F Pulse Rate 108 H 109 H Respiratory Rate 18 17 Blood Pressure 166/79 H 162/84 H Pulse Oximetry 93 L 94 L Intake & Output 12/01/17 12/02/17 12/02/17 18:59 06:59 18:59 Intake Total 3000 / 3000 Output Total 500 / 500 1500 / 1500 Balance -500 / -500 1500 / 1500 Weight 86.1 kg Intake: IV 1000 / 1000 Oral 2000 / 2000 Output: Urine 1500 / 1500 Urine Amount (Catheter) 500 / 500 Indwelling Urethral Catheter 500 / 500 Other: Date of Last Bowel Movement 12/02/17 # Bowel Movements 3 - Urinary Catheter Management Indwelling Urethral Catheter Cath placed during this visit: no <Ramon Cagle - Last Filed: 12/02/17 08:06> Results - Labs CBC & Chem 7: 11/30/17 14:20 12/01/17 05:57 Laboratory Results - last 24 hr 12/01/17 12/01/17 12/01/17 05:57 05:57 06:34 Sodium 139 Potassium 3.9 Chloride 98 Carbon Dioxide 29.9 Anion Gap 11 BUN 15 Creatinine 4.27 H Estimated GFR 11 L POC Glucose 122 H Random Glucose 107 H D Calcium 8.1 L Phosphorus 3.1 Iron 15 L TIBC 140 L % Saturation 10.7 L Albumin 1.6 L Hepatitis A IgM Ab Nonreactive Hep Bs Antigen Nonreactive Hep B Core IgM Ab Nonreactive Hep C IgG Ab Nonreactive 12/01/17 12/01/17 12/01/17 07:54 11:57 17:37 Sodium Potassium Chloride Carbon Dioxide Anion Gap BUN Creatinine Estimated GFR POC Glucose 145 H 260 H 154 H Random Glucose Calcium Phosphorus Iron TIBC % Saturation Albumin Hepatitis A IgM Ab Hep Bs Antigen Hep B Core IgM Ab Hep C IgG Ab 12/01/17 20:44 Sodium Potassium Chloride Carbon Dioxide Anion Gap BUN Creatinine Estimated GFR POC Glucose 265 H Random Glucose Calcium Phosphorus Iron TIBC % Saturation Albumin Hepatitis A IgM Ab Hep Bs Antigen Hep B Core IgM Ab Hep C IgG Ab Microbiology 12/01/17 10:18 Wound - Wrist Gram Stain - Final <Nacho Zaragoza - Last Filed: 12/02/17 06:44> - Labs CBC & Chem 7: 11/30/17 14:20 12/01/17 05:57 Laboratory Results - last 24 hr 12/01/17 12/01/17 12/01/17 07:54 11:57 17:37 POC Glucose 145 H 260 H 154 H 12/01/17 12/02/17 12/02/17 20:44 07:00 08:00 POC Glucose 265 H 459 H* 380 H Microbiology 12/01/17 10:18 Wound - Wrist Gram Stain - Final <Ramon Cagle - Last Filed: 12/02/17 08:06> Assessment and Plan - Assessment and Plan Left distal tibia and fibula fractures Surgery will be today for intramedullary maria teresa fixation of the hindfoot. This will allow for the least invasive and small surgical incisions for fixation. With her diabetes there is a high concern for wound complications. Consult hand for her right hand wound N.p.o. Sign consents <Nacho Zaragoza - Last Filed: 12/02/17 06:44> - Assessment and Plan E-FORE Prescription Drug Monitoring Database has been queried and verified prior to prescribing the controlled substance. Acute pain exception. This patient has normal, predicted, physiological, and time limited response to an adverse mechanical stimulus associated with surgery, trauma, or acute illness as described in my notes. There is a lack of alternative treatment options other than to include the prescribed narcotic treatment for this condition. <Ramon Cagle - Last Filed: 12/02/17 08:06>
[2017-12-02] MEDS ORDERED: ceFAZolin 2 GM Premix Inj 2 GM/50 ML PIGGYBACK IV.SIG ONE (06:54)
[2017-12-02 07:30] LABS: Mean Corpuscular HGB Conc 31.5 % (32.0-36.0); Mean Corpuscular Hemoglobin 30.4 pg (27.0-34.0); Mean Corpuscular Volume 96.5 fL (80.0-100.0); Mean Platelet Volume 6.9 fL (7.0-11.0); Platelet Count 473 th/mm3 (150-450); Red Blood Count 1.92 mil/mm3 (4.00-5.30); Red Cell Distribution Width 14.6 % (11.6-17.2); White Blood Count 11.4 th/mm3 (4.0-11.0)
[2017-12-02] MEDS ORDERED: Bupivacaine/Epinephrine PF Inj 0.5% 30 ML Vial ONE (07:34)
[2017-12-02] MEDS ORDERED: Famotidine PF Inj 20 MG/2 ML Vial ONE (07:57)
[2017-12-02 08:06] LABS: Hematocrit 18.5 % (35.0-46.0); Hemoglobin 5.8 gm/dL (11.6-15.3)
[2017-12-02 08:55] LABS: Hematocrit 17.1 % (35.0-46.0); Hemoglobin 5.5 gm/dL (11.6-15.3)
--- NOTE | 2017-12-02 09:08 | MB ---
cc: Shayne Gramajo MD DATE: 12/02/2017 REASON FOR CONSULTATION: Left distal tibia and fibula fractures. HISTORY OF PRESENT ILLNESS: Kavita is a 52-year-old female with multiple medical problems. She has end-stage renal disease and is on dialysis. She has hypertension, diabetes and peripheral neuropathy. She has bilateral foot drop. She has difficulty ambulating and only walks with a walker. She was going to the bathroom when she lost her balance. She felt and heard a pop in her left ankle. She was unable to stand or ambulate after the fall. Because of her peripheral neuropathy, she is not having severe pain. She did notice a deformity of her ankle. She presented to the emergency room where x-rays revealed displaced left distal tibia and fibula fractures. She is currently awake and alert on the orthopedic floor. PAST MEDICAL HISTORY: Illnesses, hypertension, diabetes, renal failure. Surgeries, dialysis catheter placement. ALLERGIES: CIPRO, LATEX, BARIUM, METOCLOPRAMIDE, VANCOMYCIN AND PENICILLIN. MEDICATIONS: 1. Eliquis. 2. Folic acid. 3. Lasix. 4. Synthroid. 5. Metoprolol. 6. Zofran. 7. Protonix. 8. Paroxetine. SOCIAL HISTORY: The patient denies alcohol, tobacco or drug use. FAMILY HISTORY: Noncontributory. REVIEW OF SYSTEMS: The patient denies fevers or chills, weight loss, headache, visual changes, hearing loss, chest pain, palpitations, shortness of breath, nausea, vomiting, urinary or bowel changes, neck or back pain, skin rashes, weakness of extremities, anxiety or depression. She does have mild left ankle pain. She has chronic diminished sensation in both feet and hands secondary to peripheral neuropathy. LABORATORY DATA: The patient has a white blood cell count of 12.0, hemoglobin of 7.1, hematocrit 21. X-RAYS: X-rays of the left ankle were reviewed. X-rays reveal a mildly displaced, mildly comminuted left distal tibia and fibular fracture. PHYSICAL EXAMINATION: GENERAL: The patient is a pleasant 52-year-old female. She is awake and alert. She is alert and oriented x 3. She is in no acute distress. She appears well-developed and well-nourished. VITAL SIGNS: Temperature 98.9, pulse 109, respirations 17, blood pressure 168/84, O2 saturation 94% on room air. HEAD: The patient is normocephalic. EYES: Pupils are equal. NECK: Soft, nontender. The trachea is midline. ABDOMEN: Soft, nontender, nondistended. EXTREMITIES: Examination of bilateral upper extremities reveals no obvious pain or deformity with shoulder, elbow or wrist motion. She has intact sensation in all fingers. She has good cap refill in all fingers. Skin is intact. Radial pulses are palpable. Examination of the left leg reveals no pain with hip or knee motion. She has mild deformity of her ankle and mild swelling of her ankle. Skin is intact. She has pain with ankle motion. Dorsalis pedis pulse is palpable. Examination of right leg reveals no pain with hip, knee or ankle motion. Skin is intact. She has diminished sensation in both feet. She has bilateral foot drop and is unable to dorsiflex either foot. IMPRESSION: 1. Diabetes. 2. Peripheral neuropathy. 3. Renal failure with dialysis. 4. Bilateral foot drop. 5. Displaced left distal tibia and fibula fractures. PLAN: Treatment options were discussed with the patient. I discussed with the patient treatment options including external fixation, open reduction internal fixation, versus hindfoot fusion. Given the patient's overall medical condition, peripheral neuropathy, diabetes, and foot drop, I feel that the least invasive procedure would be doing a hindfoot fusion nail. She understands that she will be losing ankle motion. Risks of surgery include bleeding, infection, injuries to arteries, nerves or blood vessels, nonunion, malunion, painful hardware, wound infection, need for amputation, as well as medical complications including blood clot, stroke, heart attack and . All questions were answered. I will plan on surgery today. Postoperatively, physical therapy will be consulted. She will need continued medical management for her diabetes. A mid-level provider in my office, nurse practitioner or PA, may see this patient on a follow-up basis and continue to implement the objective of this plan including: Starting or adjusting medications, injections of muscle, tendon, bursa or joints, cast application, orthotic or brace application, physical therapy, further radiographic studies including x-ray, MRI, CT, ultrasounds or bone scan, vascular studies, neurologic studies, or other specialist consultations, and proceeding with surgical management as appropriate. MD RAHEL Wiggins , 08:26 AM , 09:07 AM
[2017-12-02] MEDS ORDERED: Heparin 2,000 UNITS/2 ML Vial (for IV use) IV.FLUSH PRN (09:20)
--- NOTE | 2017-12-02 09:24 | P.PNOP ---
Subjective Interval history: Patient is comfortable. Labs came back with critical H&H and elevated blood sugars Physical Exam Vital signs: Vital Signs 12/01/17 16:30 12/01/17 19:14 12/01/17 20:00 Temperature 99.9 F H 98.3 F Pulse Rate 99 H 105 H Respiratory Rate 16 18 Blood Pressure 173/84 H 143/69 H Pulse Oximetry 92 L 92 L 12/02/17 00:00 12/02/17 06:47 12/02/17 08:41 Temperature 99.3 F 98.9 F Pulse Rate 108 H 109 H Respiratory Rate 18 17 Blood Pressure 166/79 H 162/84 H Pulse Oximetry 93 L 94 L 94 L Intake & Output 12/01/17 12/02/17 12/02/17 18:59 06:59 18:59 Intake Total 3000 / 3000 Output Total 500 / 500 1500 / 1500 Balance -500 / -500 1500 / 1500 Weight 86.1 kg Intake: IV 1000 / 1000 Oral 2000 / 2000 Output: Urine 1500 / 1500 Urine Amount (Catheter) 500 / 500 Indwelling Urethral Catheter 500 / 500 Other: Date of Last Bowel Movement 12/02/17 # Bowel Movements 3 Narrative: Left lower extremity: No pain with hip or knee range of motion. Splint is in place. There is good capillary refills to toes. She has no dorsiflexion of toes but is weak plantar flexion. No sensation in toes or foot Right upper extremity: Clean dressing of her hand. Some necrosis of skin of the fifth finger. - Urinary Catheter Management Indwelling Urethral Catheter Cath placed during this visit: yes Reason for continuing: Chronic Urinary Retention Insertion date: 12/01/17 Insertion time: 15:34 Results - Labs CBC & Chem 7: 12/02/17 08:30 12/01/17 05:57 Laboratory Results - last 24 hr 12/01/17 12/01/17 12/01/17 11:57 17:37 20:44 WBC RBC Hgb Hct MCV MCH MCHC RDW Plt Count MPV POC Glucose 260 H 154 H 265 H MTS Gel Crossmatch 12/02/17 12/02/17 12/02/17 07:00 07:02 08:00 WBC 11.4 H RBC 1.92 L Hgb 5.8 L* Hct 18.5 L* MCV 96.5 MCH 30.4 MCHC 31.5 L RDW 14.6 Plt Count 473 H MPV 6.9 L POC Glucose 459 H* 380 H MTS Gel Crossmatch 12/02/17 12/02/17 08:30 08:30 WBC RBC Hgb 5.5 L* Hct 17.1 L* MCV MCH MCHC RDW Plt Count MPV POC Glucose MTS Gel Crossmatch See Detail Microbiology 12/01/17 10:18 Wound - Wrist Gram Stain - Final Assessment and Plan - Assessment and Plan Left distal tibia and fibula fractures Due to critical values of H&H and significant elevation of blood sugars we are postponing surgery today. X-rays reviewed of left distal tibia and fibula and alignment is acceptable in splint for temporary treatment. We will continue to maintain the splint and be nonweightbearing on the left lower extremity She will continue to keep it elevated to decrease swelling Medical management for anemia, dialysis and blood sugars We will make her n.p.o. after midnight on Tuesday night for possible surgery on Tuesday if stable.
--- NOTE | 2017-12-02 09:26 | XR ---
EXAM DATE: 12/02/2017 9:23 AM EDT AGE/SEX: 52 years / Female INDICATIONS: Ankle fracture post fall 2 days ago. CLINICAL DATA: This is the patient's subsequent encounter. Patient reports that signs and symptoms h ave been present for 2 days and indicates a pain score of 10/10. MEDICAL/SURGICAL HISTORY: None. . Left foot surgery. COMPARISON: [facility], FOOT COMPLETE LEFT 3V, 11/30/2017. . FINDINGS: Reasonable alignment across the ankle mortise in fiberglass. Lateral malleolus in reasonable alignmen t. Severe osteopenia with previous tarsal fusion. CONCLUSION: Reasonable alignment in fiberglass across the severely comminuted fracture of the distal tibia and fi bula. Electronically signed by: Joshua Machado MD 12/02/2017 9:24 AM EDT
[2017-12-02] MEDS: PARoxetine Liq 20 MG/10 ML UDC PO SCH (09:47)
[2017-12-02] MEDS: Furosemide 40 MG Tablet PO SCH (09:49)
--- NOTE | 2017-12-02 09:57 | P.PNIM ---
Subjective Interval history: f/u ; left ankle fracture in no acute distress.pain is controlled.accu-checks and H/H trend noted. d/w the RN. Physical Exam Vital signs: Vital Signs 12/01/17 16:30 12/01/17 19:14 12/01/17 20:00 Temperature 99.9 F H 98.3 F Pulse Rate 99 H 105 H Respiratory Rate 16 18 Blood Pressure 173/84 H 143/69 H Pulse Oximetry 92 L 92 L 12/02/17 00:00 12/02/17 06:47 12/02/17 08:41 Temperature 99.3 F 98.9 F Pulse Rate 108 H 109 H Respiratory Rate 18 17 Blood Pressure 166/79 H 162/84 H Pulse Oximetry 93 L 94 L 94 L 12/02/17 09:10 12/02/17 09:39 Temperature Pulse Rate Respiratory Rate Blood Pressure Pulse Oximetry 95 95 Intake & Output 12/01/17 12/02/17 12/02/17 18:59 06:59 18:59 Intake Total 3000 / 3000 Output Total 500 / 500 1500 / 1500 Balance -500 / -500 1500 / 1500 Weight 86.1 kg Intake: IV 1000 / 1000 Oral 2000 / 2000 Output: Urine 1500 / 1500 Urine Amount (Catheter) 500 / 500 Indwelling Urethral Catheter 500 / 500 Other: Date of Last Bowel Movement 12/02/17 # Bowel Movements 3 - Constitutional no acute distress - Routine Respiratory Exam Present: CTA bilaterally - Routine Cardiovascular Exam Present: RRR - Routine Abdominal Exam Present: soft - Routine Extremities Exam Comments: left ankle and right hand covered with clean dressing. - Routine Neurological Exam Present: alert, oriented X3 - Urinary Catheter Management Indwelling Urethral Catheter Cath placed during this visit: yes Reason for continuing: Chronic Urinary Retention Insertion date: 12/01/17 Insertion time: 15:34 Results - Labs CBC & Chem 7: 12/02/17 08:30 12/01/17 05:57 Laboratory Results - last 24 hr 12/01/17 12/01/17 12/01/17 11:57 17:37 20:44 WBC RBC Hgb Hct MCV MCH MCHC RDW Plt Count MPV POC Glucose 260 H 154 H 265 H Blood Type Antibody Screen MTS Gel Crossmatch 12/02/17 12/02/17 12/02/17 07:00 07:02 08:00 WBC 11.4 H RBC 1.92 L Hgb 5.8 L* Hct 18.5 L* MCV 96.5 MCH 30.4 MCHC 31.5 L RDW 14.6 Plt Count 473 H MPV 6.9 L POC Glucose 459 H* 380 H Blood Type Antibody Screen MTS Gel Crossmatch 12/02/17 12/02/17 08:30 08:30 WBC RBC Hgb 5.5 L* Hct 17.1 L* MCV MCH MCHC RDW Plt Count MPV POC Glucose Blood Type AB Positive Antibody Screen Negative MTS Gel Crossmatch See Detail Microbiology 12/01/17 10:18 Wound - Wrist Gram Stain - Final - Imaging Impressions Ankle X-Ray 12/02/17 08:15 CONCLUSION: Reasonable alignment in fiberglass across the severely comminuted fracture of the distal tibia and fibula. Assessment and Plan - Assessment (1) Ankle fracture Code(s): S82.899A - Other fracture of unspecified lower leg, initial encounter for closed fracture Status: Acute Plan: continue with pain control-ortho consulted; surgical intervention per ortho. (2) ESRD (end stage renal disease) Code(s): N18.6 - End stage renal disease Status: Chronic Plan: on M/W/F HD schedule- nephrology consulted. (3) Hypertension Code(s): I10 - Essential (primary) hypertension Status: Chronic Plan: resumed home meds and monitor. (4) Infection of right hand Code(s): L08.9 - Local infection of the skin and subcutaneous tissue, unspecified Status: Acute Plan: had recent surgical intervention- will obtain the medical record from [facility]. hand surgery consulted. of note previously d/w 's PA ( her hand surgeon); recommended wound care , Keflex and outpatient f/u with . (5) Diabetes mellitus Code(s): E11.9 - Type 2 diabetes mellitus without complications Status: Acute Plan: using insulin pump at home- place on accu-start on levemir and continue check with SSI for now. (6) DVT (deep venous thrombosis) Code(s): I82.409 - Acute embolism and thrombosis of unspecified deep veins of unspecified lower extremity Status: Chronic Plan: patient says that she was diagnosed with DVT of the right upper extremity about eight months ago . hold anticoagulation for now-pending ortho evaluation. (7) Anemia Code(s): D64.9 - Anemia, unspecified Status: Acute Plan: of chronic disease- will transfuse with PRBC during HD today- on Epogen - will continue to monitor. - Plan DVT prophylaxis- per ortho. Discharge Planning: awaiting ortho surgical intervention. (1) Ankle fracture Qualifiers: Laterality: left (3) Hypertension Qualifiers: Hypertension type: essential hypertension Qualified Code(s): I10 - Essential (primary) hypertension (5) Diabetes mellitus Qualifiers: Diabetes mellitus type: type 1 (6) DVT (deep venous thrombosis) Qualifiers: DVT location: upper extremity Laterality: right (7) Anemia Qualifiers: Anemia type: unspecified type Qualified Code(s): D64.9 - Anemia, unspecified
--- NOTE | 2017-12-02 14:30 | P.PNNP ---
Subjective Interval history: 52-year-old patient with a history of diabetes mellitus, hypertension and subsequently end-stage renal disease secondary to diabetic nephropathy. The patient receives hemodialysis as an outpatient Tuesday and Tuesday at a dialysis facility in [place]. She frequently visits her sister in [place] however. Apparently fell down locally and presented to the emergency room and was diagnosed as having a fracture of the left ankle. Is tentatively scheduled for surgery. The patient was seen during her dialysis session today. Tolerating same via PermCath. Physical Exam Vital signs: Vital Signs 12/01/17 16:30 12/01/17 19:14 12/01/17 20:00 Temperature 99.9 F H 98.3 F Pulse Rate 99 H 105 H Respiratory Rate 16 18 Blood Pressure 173/84 H 143/69 H Pulse Oximetry 92 L 92 L 12/02/17 00:00 12/02/17 06:47 12/02/17 08:41 Temperature 99.3 F 98.9 F Pulse Rate 108 H 109 H Respiratory Rate 18 17 Blood Pressure 166/79 H 162/84 H Pulse Oximetry 93 L 94 L 94 L 12/02/17 09:00 12/02/17 09:10 12/02/17 09:39 Temperature 98.3 F Pulse Rate 104 H Respiratory Rate 17 Blood Pressure 192/91 H Pulse Oximetry 96 95 95 12/02/17 11:24 12/02/17 11:41 Temperature 98 F 98 F Pulse Rate 100 H 102 H Respiratory Rate 18 Blood Pressure Pulse Oximetry Intake & Output 12/01/17 12/02/17 12/02/17 18:59 06:59 18:59 Intake Total 3000 / 3000 0 / 0 Output Total 500 / 500 1500 / 1500 Balance -500 / -500 1500 / 1500 0 / 0 Weight 86.1 kg Intake: IV 1000 / 1000 Oral 2000 / 2000 Intake (Blood Product) Amt 0 / 0 Rbc As-3 Leukoreduced Unit 0 / 0 [id number] Rbc As-3 Leukoreduced Unit 0 / 0 [id number] Output: Urine 1500 / 1500 Urine Amount (Catheter) 500 / 500 Indwelling Urethral Catheter 500 / 500 Other: Date of Last Bowel Movement 12/02/17 12/01/17 # Bowel Movements 3 - Constitutional no acute distress - Routine HEENT Exam Head: Present: normocephalic - Routine Respiratory Exam Present: CTA bilaterally - Routine Cardiovascular Exam Present: RRR - Routine Abdominal Exam Present: soft - Routine Extremities Exam Present: edema (1+ pitting edema ankle.) - Routine Neurological Exam Present: alert - Urinary Catheter Management Indwelling Urethral Catheter Cath placed during this visit: yes Reason for continuing: Chronic Urinary Retention Insertion date: 12/01/17 Insertion time: 15:34 Assessment and Plan - Assessment (1) ESRD (end stage renal disease) Code(s): N18.6 - End stage renal disease Status: Chronic Plan: Apparently secondary to diabetic nephropathy. Stable on dialysis when seen today. Continue hemodialysis Tuesday schedule unless otherwise indicated. Current access a hemodialysis PermCath. Patient gives a vague history of being told when she was an inpatient at [facility] by piling setter that if her bladder retention was evaluated by urologist she may be able to discontinue dialysis. The patient was at that institution for 1 week so her Toth catheter was in place one would think that a decision could be made as to whether or not she did have significant obstruction and if dialysis could be discontinued during that hospitalization. This was discussed with her. Will keep Toth in over the weekend with monitoring of BMP Tuesday and Tuesday to see if there is any evidence of improved renal function. If not I do not believe that bladder outlet obstruction is contributory to her dialysis dependence. If patient discharged however she is to return to care of her regular outpatient piling setter who does not have privileges at this institution. Her chronic outpatient dialysis facility is [facility] patient has multiple antibiotic allergies to vancomycin, Cipro, penicillin. In addition allergy to latex. Medication should be adjusted for the patient's end-stage renal disease when indicated. Avoid gadolinium. (2) Anemia of renal disease Code(s): D63.1 - Anemia in chronic kidney disease Status: Acute Plan: Continue Epogen for anemia of renal disease. Patient has evidence of iron deficiency. Venofer ordered. (3) Hypertension Code(s): I10 - Essential (primary) hypertension Status: Chronic Qualifiers: Hypertension type: essential hypertension Qualified Code(s): I10 - Essential (primary) hypertension
[2017-12-02] MEDS: Folic Acid 1 MG Tablet PO SCH (16:45)
[2017-12-02] MEDS: Iron Sucrose Inj 100 MG in Sodium Chlor 0.9% Inj 100 ML IV.SIG SCH (18:34)
[2017-12-02] MEDS ORDERED: Insulin Detemir Inj 1,000 UNIT/10 ML Vial SQ SCH (21:00)
--- NOTE | 2017-12-02 21:05 | MB ---
cc: Elena Whetaley MD, Sarah E MD DATE: 12/02/2017 NO DICTATION Elena Wheatley MD SE/ , 08:51 PM , 09:03 PM [facility]
--- NOTE | 2017-12-02 21:14 | MB ---
cc: Elena Wheatley MD, Sarah E MD DATE: 12/02/2017 HISTORY OF PRESENT ILLNESS: Kavita Klein is a 52-year-old right hand dominant female with end-stage renal disease and diabetes who states that approximately 2 weeks ago she had significant pain in the hand and was admitted to [facility] where she underwent two surgeries by Dr. Sue. We do not have the operative reports from the surgery. The patient states that initially she had the incision on the small finger, which sounds like an irrigation and debridement for an abscess and she was in the hospital on IV antibiotics for approximately 2 weeks. The patient states she had a second surgery, which was an incision in the forearm, which is now healing with granulation tissue. The patient reports improving but persistent pain over the hand. She states she has had necrosis over the tip of the small finger for the past week and this was seen by Dr. Sue. She presented to this hospital as she had a fall and sustained an ankle fracture, which is going to be treated potentially operatively by orthopedics. The patient denies any prior problems with the right hand. The white count is 11.4. Glucose running from 200 to 500s. Hemoglobin A1c pending. PHYSICAL EXAM: Exam of the right hand after the dressing was removed shows granulation tissue over the forearm with an open wound. Packing in place over the volar aspect of the right small finger with a Amalia incision with no active drainage. There is necrosis of the tip of the small finger. The patient has contracture of all of the fingers and is unable to extend the fingers. Function is intact of FDS and FDP. Less than 2 second capillary refill to the index, middle and ring finger. Again, necrosis to the tip of the small finger. No images of the hand available at this time. ASSESSMENT AND PLAN: A 52-year-old female status post [address] Sue on the right hand in the past 2 weeks for possible compartment syndrome and abscess. We will attempt to obtain all the records. I did speak with Dr. Sue's PA and, at this time, he recommended no further surgery. She will followup with Dr. Sue when she is discharged. Her discharge plan will be according to Orthopedics with regard to her foot. She will continue wound care per the wound service at this time. Please call if any worsening symptoms. MD HEIDI Brooks , 08:58 PM , 09:12 PM [facility]
[2017-12-03] MEDS: Dextrose 5%/NaCl 0.9% Inj 1,000 ML IV.CONT SCH (03:52)
[2017-12-03] MEDS: Levothyroxine 88 MCG Tablet PO SCH (06:17)
[2017-12-03 07:36] LABS: Hematocrit 25.5 % (35.0-46.0); Hemoglobin 8.4 gm/dL (11.6-15.3); Mean Corpuscular HGB Conc 32.9 % (32.0-36.0); Mean Corpuscular Hemoglobin 30.6 pg (27.0-34.0); Mean Corpuscular Volume 93.1 fL (80.0-100.0); Mean Platelet Volume 6.8 fL (7.0-11.0); Platelet Count 446 th/mm3 (150-450); Red Blood Count 2.74 mil/mm3 (4.00-5.30); Red Cell Distribution Width 15.3 % (11.6-17.2); White Blood Count 13.4 th/mm3 (4.0-11.0)
--- NOTE | 2017-12-03 08:23 | P.PNOP ---
Subjective Interval history: pain controlled. Physical Exam Vital signs: Vital Signs 12/02/17 08:41 12/02/17 09:00 12/02/17 09:10 Temperature 98.3 F Pulse Rate 104 H Respiratory Rate 17 Blood Pressure 192/91 H Pulse Oximetry 94 L 96 95 12/02/17 09:39 12/02/17 11:24 12/02/17 11:41 Temperature 98 F 98 F Pulse Rate 100 H 102 H Respiratory Rate 18 Blood Pressure Pulse Oximetry 95 12/02/17 16:00 12/02/17 18:45 12/02/17 20:00 Temperature 98.0 F 98.2 F Pulse Rate 101 H 98 H Respiratory Rate 17 18 Blood Pressure 180/85 H 186/86 H Pulse Oximetry 95 95 95 12/02/17 22:00 12/03/17 04:00 Temperature 98.6 F 98.3 F Pulse Rate 98 H 99 H Respiratory Rate 18 18 Blood Pressure 194/88 H 194/94 H Pulse Oximetry 93 L 93 L Intake & Output 12/02/17 12/03/17 12/03/17 18:59 06:59 18:59 Intake Total 0 / 0 105 / 105 Output Total 3000 / 3000 Balance -3000 / -3000 105 / 105 Intake: IV 105 / 105 Venofer Inj 100 MG In NS Inj 105 / 105 100 ML @ 105 mls/hr IV.SIG DAILY [facility] Rx#:[id number] Intake (Blood Product) Amt 0 / 0 Rbc As-3 Leukoreduced Unit 0 / 0 [id number] Rbc As-3 Leukoreduced Unit 0 / 0 [id number] Output: Hemodialysis Amount 3000 / 3000 Other: Date of Last Bowel Movement 12/01/17 12/02/17 Narrative: Left lower extremity: No pain with hip or knee range of motion. Splint is in place. There is good capillary refills to toes. She has no dorsiflexion of toes but is weak plantar flexion. No sensation in toes or foot RLE- developing skin sore heel Right upper extremity: Clean dressing of her hand. Some necrosis of skin of the fifth finger. - Urinary Catheter Management Indwelling Urethral Catheter Cath placed during this visit: yes Reason for continuing: Chronic Urinary Retention Insertion date: 12/01/17 Insertion time: 15:34 Results - Labs CBC & Chem 7: 12/03/17 06:55 12/01/17 05:57 Laboratory Results - last 24 hr 12/02/17 12/02/17 12/02/17 08:30 08:30 14:45 WBC RBC Hgb 5.5 L* Hct 17.1 L* MCV MCH MCHC RDW Plt Count MPV POC Glucose 233 H Blood Type AB Positive Antibody Screen Negative MTS Gel Crossmatch See Detail 12/02/17 12/03/17 12/03/17 20:46 00:18 02:01 WBC RBC Hgb Hct MCV MCH MCHC RDW Plt Count MPV POC Glucose 498 H* 454 H* 265 H Blood Type Antibody Screen MTS Gel Crossmatch 12/03/17 12/03/17 06:55 07:30 WBC 13.4 H RBC 2.74 L Hgb 8.4 L D Hct 25.5 L MCV 93.1 MCH 30.6 MCHC 32.9 RDW 15.3 Plt Count 446 MPV 6.8 L POC Glucose 195 H Blood Type Antibody Screen MTS Gel Crossmatch Microbiology 12/01/17 10:18 Wound - Wrist Gram Stain - Final 12/01/17 10:18 Wound - Wrist Wound Culture - Preliminary No growth in 24 hours - Imaging Impressions Ankle X-Ray 12/02/17 08:15 CONCLUSION: Reasonable alignment in fiberglass across the severely comminuted fracture of the distal tibia and fibula. Assessment and Plan - Assessment and Plan Left distal tibia and fibula fractures Due to critical values of H&H and significant elevation of blood sugars surgery was postponed Tuesday. received 2 units prbc Tuesday X-rays reviewed of left distal tibia and fibula and alignment is acceptable in splint for temporary treatment. We will continue to maintain the splint and be nonweightbearing on the left lower extremity She will continue to keep it elevated to decrease swelling Podus boot RLE Medical management for anemia, dialysis and blood sugars We will make her n.p.o. after midnight on Tuesday night for possible surgery on Tuesday if stable.
[2017-12-03] MEDS: Iron Sucrose Inj 100 MG in Sodium Chlor 0.9% Inj 100 ML IV.SIG SCH (08:46)
[2017-12-03] MEDS: HYDROmorphone PF Inj 2 MG/ML Vial IV.PUSH PRN ×4 (08:46→21:14)
[2017-12-03] MEDS: Furosemide 40 MG Tablet PO SCH (08:48)
[2017-12-03] MEDS: PARoxetine Liq 20 MG/10 ML UDC PO SCH (08:49)
[2017-12-03] MEDS: Folic Acid 1 MG Tablet PO SCH (08:49)
[2017-12-03] MEDS: Insulin NovoLOG Aspart Correctional Sugar Inj SQ SCH ×4 (09:01→21:03)
--- NOTE | 2017-12-03 12:08 | P.DIET ---
Nutritional Evaluation Type of nutrition evaluation: initial Nutrition consult regarding: Diet Evaluation Nutrition screening: Weight Loss > 10 lbs (wt. loss due to ESRD and poor PO intake) Objective - Diagnosis Fall. PMH see H&P - Indications of Malnutrition Classification: Chronic disease or injury-related Malnutrition Severity: Mild to Moderate Characteristics: Weight loss, Insufficient energy intake - Objective % IBW: 140 Body Weight Used for Calculations: Upper end of IBW Energy Needs - Lower Range (kCal/kg): 28 Energy Needs - Upper Range (kCal/kg): 32 Lower Limit kCal/kg (kCals): 1,708 Upper Limit kCal/kg (kCals): 1,952 Lower Limit Protein Factor (Grams per Kg): 1 Upper Limit Protein Factor (Grams per Kg): 1.5 Lower Protein Needs (Protein): 61 Upper Protein Needs (Protein): 92 Dietitian Reviewed in Medical Record: Current diet, Curent medications, Intake & Output, Labs, Medical history Diet Order: 1800ADA Speech Therapy Recommendations: Yes (No swallowing issues) Objective Comments: PMH of diabetes mellitus, hypertension and subsequently end-stage renal disease secondary to diabetic nephropathy. Assessment Assessment: Pt. is at nutritional risk due to dx. Pt. admitted s/p fall. Pt. found to have fractured her left ankle. Pt. is on HD 3x/wk, with 500mls of UOP on 12/02. Record % of PO intake in EMR. Will monitor PO intake, need for supplements, labs , wt. and UOP Recommendations: 1. Record % of PO intake in EMR. 2. Will monitor PO intake, need for supplements, labs, wt. and UOP Dietitian to Monitor: Lab values, Renal labs, Glucose level, Intake & Output, Diet tolerance, Weight change, PO Intake, Diet advancement, Medical course
--- NOTE | 2017-12-03 12:33 | P.PNIM ---
Subjective Interval history: The patient was resting in bed comfortably. She said that she was trying the Toth through the weekend to see if she can get off of dialysis. She says her hand hurts but her leg does not. She says she has struggled with gastroparesis in the past. Discussed with nursing. Physical Exam Vital signs: Vital Signs 12/02/17 16:00 12/02/17 18:45 12/02/17 20:00 Temperature 98.0 F 98.2 F Pulse Rate 101 H 98 H Respiratory Rate 17 18 Blood Pressure 180/85 H 186/86 H Pulse Oximetry 95 95 95 12/02/17 22:00 12/03/17 04:00 12/03/17 08:00 Temperature 98.6 F 98.3 F 98.6 F Pulse Rate 98 H 99 H 100 H Respiratory Rate 18 18 17 Blood Pressure 194/88 H 194/94 H 160/96 H Pulse Oximetry 93 L 93 L 93 L 12/03/17 09:00 12/03/17 11:22 Temperature Pulse Rate 98 H Respiratory Rate Blood Pressure Pulse Oximetry 94 L Intake & Output 12/02/17 12/03/17 12/03/17 18:59 06:59 18:59 Intake Total 0 / 0 105 / 105 1105 / 1105 Output Total 3000 / 3000 Balance -3000 / -3000 105 / 105 1105 / 1105 Intake: IV 105 / 105 1105 / 1105 D5W/Normal Saline Inj 1,000 ML 1000 / 1000 @ 30 mls/hr IV.CONT .Q24H [facility] Rx#:[id number] Venofer Inj 100 MG In NS Inj 105 / 105 105 / 105 100 ML @ 105 mls/hr IV.SIG DAILY [facility] Rx#:[id number] Intake (Blood Product) Amt 0 / 0 Rbc As-3 Leukoreduced Unit 0 / 0 [id number] Rbc As-3 Leukoreduced Unit 0 / 0 [id number] Output: Hemodialysis Amount 3000 / 3000 Other: Date of Last Bowel Movement 12/01/17 12/02/17 12/02/17 Narrative: GENERAL: Well-developed, no distress. SKIN: Focused skin assessment warm/dry. HEAD: Atraumatic. Normocephalic. EYES: Pupils equal and round. No scleral icterus. No injection or drainage. ENT: No nasal bleeding or discharge. Mucous membranes pink and moist. NECK: Trachea midline. No JVD. CARDIOVASCULAR: Regular rate and rhythm. No murmur appreciated. RESPIRATORY: No accessory muscle use. Clear to auscultation. Breath sounds equal bilaterally. GASTROINTESTINAL: Abdomen soft, non-tender, nondistended. Hepatic and splenic margins not palpable. EXTREMITIES: Left leg is bandaged. NEUROLOGICAL: Awake and alert. No obvious cranial nerve deficits. Motor grossly within normal limits. Normal speech. PSYCHIATRIC: Appropriate mood and affect; insight and judgment normal. - Urinary Catheter Management Indwelling Urethral Catheter Cath placed during this visit: yes Reason for continuing: Chronic Urinary Retention Insertion date: 12/01/17 Insertion time: 15:34 Results - Labs CBC & Chem 7: 12/03/17 06:55 12/01/17 05:57 Laboratory Results - last 24 hr 12/02/17 12/02/17 12/03/17 14:45 20:46 00:18 WBC RBC Hgb Hct MCV MCH MCHC RDW Plt Count MPV POC Glucose 233 H 498 H* 454 H* 12/03/17 12/03/17 12/03/17 02:01 06:55 07:30 WBC 13.4 H RBC 2.74 L Hgb 8.4 L D Hct 25.5 L MCV 93.1 MCH 30.6 MCHC 32.9 RDW 15.3 Plt Count 446 MPV 6.8 L POC Glucose 265 H 195 H 12/03/17 11:16 WBC RBC Hgb Hct MCV MCH MCHC RDW Plt Count MPV POC Glucose 260 H Microbiology 12/01/17 10:18 Wound - Wrist Gram Stain - Final 12/01/17 10:18 Wound - Wrist Wound Culture - Preliminary Assessment and Plan - Plan Ankle fracture Ortho consult appreciated. - continue with pain control. - surgical intervention per ortho. Tentatively on Tuesday. ESRD (end stage renal disease) On // HD schedule- nephrology consulted. - continue dialysis as scheduled. Hypertension Well controlled. - resumed home meds and monitor. Infection of right hand Had recent surgical intervention. Hand surgery consult appreciated. - outpatient f/u with hand surgery. Diabetes mellitus Using insulin pump at home. - place on accu-checks, start on Levemir and continue check with SSI for now. DVT (deep venous thrombosis) Patient says that she was diagnosed with DVT of the right upper extremity about eight months ago. - hold anticoagulation for now-pending ortho evaluation. Anemia of chronic disease Transfused with PRBC during HD. - on Epogen. - will continue to monitor. DVT prophylaxis- per ortho
--- NOTE | 2017-12-03 15:01 | P.PNNP ---
Subjective Interval history: Pt overall feeling well. No new complaints. <Lynn Mendez - Last Filed: 12/03/17 14:57> Physical Exam Vital signs: Vital Signs 12/02/17 16:00 12/02/17 18:45 12/02/17 20:00 Temperature 98.0 F 98.2 F Pulse Rate 101 H 98 H Respiratory Rate 17 18 Blood Pressure 180/85 H 186/86 H Pulse Oximetry 95 95 95 12/02/17 22:00 12/03/17 04:00 12/03/17 08:00 Temperature 98.6 F 98.3 F 98.6 F Pulse Rate 98 H 99 H 100 H Respiratory Rate 18 18 17 Blood Pressure 194/88 H 194/94 H 160/96 H Pulse Oximetry 93 L 93 L 93 L 12/03/17 09:00 12/03/17 11:22 12/03/17 12:00 Temperature 98.5 F Pulse Rate 98 H 96 H Respiratory Rate 18 Blood Pressure 148/90 H Pulse Oximetry 94 L 92 L 12/03/17 13:16 Temperature Pulse Rate Respiratory Rate 18 Blood Pressure Pulse Oximetry Intake & Output 12/02/17 12/03/17 12/03/17 18:59 06:59 18:59 Intake Total 0 / 0 105 / 105 1105 / 1105 Output Total 3000 / 3000 Balance -3000 / -3000 105 / 105 1105 / 1105 Intake: IV 105 / 105 1105 / 1105 D5W/Normal Saline Inj 1,000 ML 1000 / 1000 @ 30 mls/hr IV.CONT .Q24H [facility] Rx#:[id number] Venofer Inj 100 MG In NS Inj 105 / 105 105 / 105 100 ML @ 105 mls/hr IV.SIG DAILY [facility] Rx#:[id number] Intake (Blood Product) Amt 0 / 0 Rbc As-3 Leukoreduced Unit 0 / 0 [id number] Rbc As-3 Leukoreduced Unit 0 / 0 [id number] Output: Hemodialysis Amount 3000 / 3000 Other: Date of Last Bowel Movement 12/01/17 12/02/17 12/02/17 - Constitutional no acute distress - Routine HEENT Exam Head: Present: normocephalic, atraumatic - Routine Neck Exam Present: supple - Routine Respiratory Exam Present: accessory muscle use, CTA bilaterally - Routine Cardiovascular Exam Present: RRR, S1, S2 - Routine Abdominal Exam Present: soft - Routine Neurological Exam Present: alert, oriented X3 - Routine Psychiatric Exam Present: normal affect, normal thought process - Urinary Catheter Management Indwelling Urethral Catheter Cath placed during this visit: yes Reason for continuing: Chronic Urinary Retention Insertion date: 12/01/17 Insertion time: 15:34 <Lynn Mendez - Last Filed: 12/03/17 14:57> Vital signs: Vital Signs 12/03/17 16:00 12/03/17 20:00 12/04/17 00:00 Temperature 98.5 F 98.4 F 97.8 F Pulse Rate 96 H 98 H 99 H Respiratory Rate 17 18 18 Blood Pressure 160/85 H 188/98 H 168/82 H Pulse Oximetry 90 L 93 L 92 L 12/04/17 01:43 12/04/17 02:49 12/04/17 04:00 Temperature 98.8 F Pulse Rate 102 H Respiratory Rate 17 17 18 Blood Pressure 158/86 H Pulse Oximetry 92 L 12/04/17 04:03 12/04/17 04:42 12/04/17 08:00 Temperature 99.1 F Pulse Rate 103 H 102 H Respiratory Rate 17 18 Blood Pressure 162/98 H Pulse Oximetry 92 L 12/04/17 08:06 12/04/17 10:20 12/04/17 12:00 Temperature 98.2 F Pulse Rate 106 H Respiratory Rate 16 18 17 Blood Pressure 155/98 H Pulse Oximetry 94 L Intake & Output 12/03/17 12/04/17 12/04/17 18:59 06:59 18:59 Intake Total 2004 105 / 105 Output Total 650 / 650 1125 / 1125 Balance 1355 / 1355 -1125 / -1125 105 / 105 Weight 86.2 kg Intake: IV 1105 / 1105 105 / 105 D5W/Normal Saline Inj 1,000 ML 1000 / 1000 @ 30 mls/hr IV.CONT .Q24H [facility] Rx#:[id number] Venofer Inj 100 MG In NS Inj 105 / 105 105 / 105 100 ML @ 105 mls/hr IV.SIG DAILY [facility] Rx#:[id number] Oral 900 / 900 Output: Urine 1125 / 1125 Urine Amount (Catheter) 650 / 650 Indwelling Urethral Catheter 650 / 650 Other: Date of Last Bowel Movement 12/02/17 12/01/17 - Urinary Catheter Management Indwelling Urethral Catheter Cath placed during this visit: no <Liliana Linda - Last Filed: 12/04/17 15:07> Assessment and Plan - Assessment (1) ESRD (end stage renal disease) Code(s): N18.6 - End stage renal disease Status: Chronic Plan: Apparently secondary to diabetic nephropathy. Last HD 12/02/17 Continue Toth with monitoring of UOP. Will check labs tomorrow. Patient gives a vague history of being told when she was an inpatient at [facility] by decision science analyst that if her bladder retention was evaluated by urologist she may be able to discontinue dialysis. The patient was at that institution for 1 week so her Toth catheter was in place one would think that a decision could be made as to whether or not she did have significant obstruction and if dialysis could be discontinued during that hospitalization. This was discussed with her. Will keep Toth in over the weekend with monitoring of BMP Tuesday and Tuesday to see if there is any evidence of improved renal function. If not I do not believe that bladder outlet obstruction is contributory to her dialysis dependence. If patient discharged however she is to return to care of her regular outpatient decision science analyst who does not have privileges at this institution. Her chronic outpatient dialysis facility is [facility] patient has multiple antibiotic allergies to vancomycin, Cipro, penicillin. In addition allergy to latex. Medication should be adjusted for the patient's end-stage renal disease when indicated. Avoid gadolinium. (2) Anemia of renal disease Code(s): D63.1 - Anemia in chronic kidney disease Status: Acute Plan: Continue Epogen for anemia of renal disease. Patient has evidence of iron deficiency. Venofer ordered. (3) Hypertension Code(s): I10 - Essential (primary) hypertension Status: Chronic Qualifiers: Hypertension type: essential hypertension Qualified Code(s): I10 - Essential (primary) hypertension <Lynn Mendez - Last Filed: 12/03/17 14:57> - Assessment (1) ESRD (end stage renal disease) Code(s): N18.6 - End stage renal disease Status: Chronic (2) Anemia of renal disease Code(s): D63.1 - Anemia in chronic kidney disease Status: Acute (3) Hypertension Code(s): I10 - Essential (primary) hypertension Status: Chronic Qualifiers: Hypertension type: essential hypertension Qualified Code(s): I10 - Essential (primary) hypertension - Attending Attestation The exam, history, and the medical decision-making described in the above note were completed with the assistance of the PANneka. I reviewed and agree with the findings presented. I attest that I had a [id number] encounter with the patient on the same day, and personally performed and documented my assessment and findings in the medical record. <Liliana Linda - Last Filed: 12/04/17 15:07>
[2017-12-03] MEDS: Insulin Detemir Inj 1,000 UNIT/10 ML Vial SQ SCH (21:02)
[2017-12-04] MEDS: HYDROmorphone PF Inj 2 MG/ML Vial IV.PUSH PRN ×3 (00:23→07:36)
[2017-12-04] MEDS: Dextrose 5%/NaCl 0.9% Inj 1,000 ML IV.CONT SCH (03:44)
[2017-12-04] MEDS: Levothyroxine 88 MCG Tablet PO SCH (06:11)
[2017-12-04 08:21] LABS: Hematocrit 27.9 % (35.0-46.0); Hemoglobin 9.2 gm/dL (11.6-15.3); Mean Corpuscular HGB Conc 32.9 % (32.0-36.0); Mean Corpuscular Volume 91.1 fL (80.0-100.0); Mean Platelet Volume 6.8 fL (7.0-11.0); Platelet Count 498 th/mm3 (150-450); Red Blood Count 3.06 mil/mm3 (4.00-5.30); Red Cell Distribution Width 14.4 % (11.6-17.2)
[2017-12-04 08:57] LABS: Albumin 1.4 g/dL (3.4-5.0); Carbon Dioxide 27.3 meq/L (21.0-32.0); Phosphorus 2.8 mg/dL (2.5-4.9); Potassium 3.8 meq/L (3.5-5.1)
[2017-12-04] MEDS: PARoxetine Liq 20 MG/10 ML UDC PO SCH (09:45)
[2017-12-04] MEDS: Furosemide 40 MG Tablet PO SCH (09:46)
[2017-12-04] MEDS: Iron Sucrose Inj 100 MG in Sodium Chlor 0.9% Inj 100 ML IV.SIG SCH (09:46)
[2017-12-04] MEDS: Folic Acid 1 MG Tablet PO SCH (09:46)
[2017-12-04] MEDS: LORazepam 0.5 MG Tablet PO PRN ×2 (09:51→20:25)
[2017-12-04] MEDS: Insulin NovoLOG Aspart Correctional Sugar Inj SQ SCH ×4 (10:00→20:22)
[2017-12-04 11:39] LABS: Hemoglobin A1c 7.8 % (4.3-6.0)
--- NOTE | 2017-12-04 12:07 | P.PNNP ---
Subjective Interval history: Pt feeling OK <Lynn Mendez - Last Filed: 12/04/17 12:03> Physical Exam Vital signs: Vital Signs 12/03/17 13:16 12/03/17 16:00 12/03/17 20:00 Temperature 98.5 F 98.4 F Pulse Rate 96 H 98 H Respiratory Rate 18 17 18 Blood Pressure 160/85 H 188/98 H Pulse Oximetry 90 L 93 L 12/04/17 00:00 12/04/17 01:43 12/04/17 02:49 Temperature 97.8 F Pulse Rate 99 H Respiratory Rate 18 17 17 Blood Pressure 168/82 H Pulse Oximetry 92 L 12/04/17 04:00 12/04/17 04:03 12/04/17 04:42 Temperature 98.8 F Pulse Rate 102 H 103 H Respiratory Rate 18 17 Blood Pressure 158/86 H Pulse Oximetry 92 L 12/04/17 08:00 12/04/17 08:06 12/04/17 10:20 Temperature 99.1 F Pulse Rate 102 H Respiratory Rate 18 16 18 Blood Pressure 162/98 H Pulse Oximetry 92 L Intake & Output 12/03/17 12/04/17 12/04/17 18:59 06:59 18:59 Intake Total 2004 Output Total 650 / 650 1125 / 1125 Balance 1355 / 1355 -1125 / -1125 Weight 86.2 kg Intake: IV 1105 / 1105 D5W/Normal Saline Inj 1,000 ML 1000 / 1000 @ 30 mls/hr IV.CONT .Q24H [facility] Rx#:[id number] Venofer Inj 100 MG In NS Inj 105 / 105 100 ML @ 105 mls/hr IV.SIG DAILY [facility] Rx#:[id number] Oral 900 / 900 Output: Urine 1125 / 1125 Urine Amount (Catheter) 650 / 650 Indwelling Urethral Catheter 650 / 650 Other: Date of Last Bowel Movement 12/02/17 12/01/17 - Constitutional no acute distress - Routine HEENT Exam Head: Present: normocephalic - Routine Neck Exam Present: supple - Routine Respiratory Exam Present: CTA bilaterally - Routine Cardiovascular Exam Present: RRR, S1, S2 - Routine Abdominal Exam Present: soft - Routine Extremities Exam Present: edema (1+ pitting edema in her extremities) - Routine Neurological Exam Present: alert, oriented X3 - Detailed Neurological Exam: Coma Scale Verbal Response: Oriented Motor Response: Obey commands - Routine Psychiatric Exam Present: normal affect, normal thought process - Urinary Catheter Management Indwelling Urethral Catheter Cath placed during this visit: yes Reason for continuing: Acute urinary retention Insertion date: 12/01/17 Insertion time: 15:34 <Lynn Mendez - Last Filed: 12/04/17 12:03> Vital signs: Vital Signs 12/04/17 16:00 12/04/17 20:00 12/04/17 20:54 Temperature 99.0 F 99.1 F Pulse Rate 100 H 104 H Respiratory Rate 18 18 17 Blood Pressure 179/89 H 174/96 H Pulse Oximetry 93 L 95 12/04/17 23:59 12/05/17 00:00 12/05/17 01:18 Temperature 100.2 F H Pulse Rate 91 H 89 Respiratory Rate 18 17 Blood Pressure 158/76 H Pulse Oximetry 96 12/05/17 02:00 12/05/17 03:01 12/05/17 04:00 Temperature 99.4 F Pulse Rate 91 H 96 H Respiratory Rate 19 18 Blood Pressure 156/82 H Pulse Oximetry 96 12/05/17 05:18 12/05/17 08:00 12/05/17 09:49 Temperature 99.3 F Pulse Rate 96 H Respiratory Rate 18 18 Blood Pressure 152/86 H Pulse Oximetry 92 L 96 12/05/17 10:45 Temperature 98.3 F Pulse Rate 99 H Respiratory Rate 16 Blood Pressure 157/69 H Pulse Oximetry 92 L Intake & Output 12/04/17 12/05/17 12/05/17 18:59 06:59 18:59 Intake Total 1065 / 1065 400 / 400 Output Total 750 / 750 1225 / 1225 300 / 300 Balance 315 / 315 -1225 / -1225 100 / 100 Weight 86.2 kg Intake: IV 105 / 105 400 / 400 Venofer Inj 100 MG In NS Inj 105 / 105 100 ML @ 105 mls/hr IV.SIG DAILY [facility] Rx#:[id number] LR 1000 mL Inj 1,000 ML @ 30 400 / 400 mls/hr IV.SIG .Q24H [facility] Rx#: [id number] Oral 960 / 960 Output: Urine 1225 / 1225 Estimated Blood Loss 100 / 100 Urine Amount (Catheter) 750 / 750 200 / 200 Indwelling Urethral Catheter 750 / 750 200 / 200 Other: Date of Last Bowel Movement 12/02/17 12/04/17 # Bowel Movements 1 - Urinary Catheter Management Indwelling Urethral Catheter Cath placed during this visit: no <Liliana Linda - Last Filed: 12/05/17 13:28> Assessment and Plan - Assessment (1) ESRD (end stage renal disease) Code(s): N18.6 - End stage renal disease Status: Chronic Plan: Apparently secondary to diabetic nephropathy. Last HD 12/02/17 Renal functions deteriorated overnight as expected. Is making decent urine Advised that she will likely have HD tomorrow. Labs to be drawn prior. Encouraged increasing protein intake as her albumin is significantly low. Patient gives a vague history of being told when she was an inpatient at [facility] by trim technician that if her bladder retention was evaluated by urologist she may be able to discontinue dialysis. The patient was at that institution for 1 week so her Toth catheter was in place one would think that a decision could be made as to whether or not she did have significant obstruction and if dialysis could be discontinued during that hospitalization. This was discussed with her. Will keep Toth in over the weekend with monitoring of BMP Tuesday and Tuesday to see if there is any evidence of improved renal function. If not I do not believe that bladder outlet obstruction is contributory to her dialysis dependence. Medication should be adjusted for the patient's end-stage renal disease when indicated. Avoid gadolinium. (2) Anemia of renal disease Code(s): D63.1 - Anemia in chronic kidney disease Status: Acute Plan: Continue Epogen and Venofer as ordered (3) Hypertension Code(s): I10 - Essential (primary) hypertension Status: Chronic Qualifiers: Hypertension type: essential hypertension Qualified Code(s): I10 - Essential (primary) hypertension Plan: Increase Toprol <Lynn Mendez - Last Filed: 12/04/17 12:03> - Assessment (1) ESRD (end stage renal disease) Code(s): N18.6 - End stage renal disease Status: Chronic (2) Anemia of renal disease Code(s): D63.1 - Anemia in chronic kidney disease Status: Acute (3) Hypertension Code(s): I10 - Essential (primary) hypertension Status: Chronic Qualifiers: Hypertension type: essential hypertension Qualified Code(s): I10 - Essential (primary) hypertension - Attending Attestation The exam, history, and the medical decision-making described in the above note were completed with the assistance of the FARHAD. I reviewed and agree with the findings presented. <Liliana Linda - Last Filed: 12/05/17 13:28>
--- NOTE | 2017-12-04 12:53 | P.PNOP ---
Subjective Interval history: pain in leg tolerable Physical Exam Vital signs: Vital Signs 12/03/17 13:16 12/03/17 16:00 12/03/17 20:00 Temperature 98.5 F 98.4 F Pulse Rate 96 H 98 H Respiratory Rate 18 17 18 Blood Pressure 160/85 H 188/98 H Pulse Oximetry 90 L 93 L 12/04/17 00:00 12/04/17 01:43 12/04/17 02:49 Temperature 97.8 F Pulse Rate 99 H Respiratory Rate 18 17 17 Blood Pressure 168/82 H Pulse Oximetry 92 L 12/04/17 04:00 12/04/17 04:03 12/04/17 04:42 Temperature 98.8 F Pulse Rate 102 H 103 H Respiratory Rate 18 17 Blood Pressure 158/86 H Pulse Oximetry 92 L 12/04/17 08:00 12/04/17 08:06 12/04/17 10:20 Temperature 99.1 F Pulse Rate 102 H Respiratory Rate 18 16 18 Blood Pressure 162/98 H Pulse Oximetry 92 L 12/04/17 12:00 Temperature 98.2 F Pulse Rate 106 H Respiratory Rate 17 Blood Pressure 155/98 H Pulse Oximetry 94 L Intake & Output 12/03/17 12/04/17 12/04/17 18:59 06:59 18:59 Intake Total 2004 Output Total 650 / 650 1125 / 1125 Balance 1355 / 1355 -1125 / -1125 Weight 86.2 kg Intake: IV 1105 / 1105 D5W/Normal Saline Inj 1,000 ML 1000 / 1000 @ 30 mls/hr IV.CONT .Q24H [facility] Rx#:[id number] Venofer Inj 100 MG In NS Inj 105 / 105 100 ML @ 105 mls/hr IV.SIG DAILY [facility] Rx#:[id number] Oral 900 / 900 Output: Urine 1125 / 1125 Urine Amount (Catheter) 650 / 650 Indwelling Urethral Catheter 650 / 650 Other: Date of Last Bowel Movement 12/02/17 12/01/17 Narrative: in bed, nad dressing and splint intact limited motion L ankle pressure sore R heel, no sign of infection - Urinary Catheter Management Indwelling Urethral Catheter Cath placed during this visit: yes Reason for continuing: Acute urinary retention Insertion date: 12/01/17 Insertion time: 15:34 Results - Labs CBC & Chem 7: 12/04/17 07:00 07/15/18 07:51 Laboratory Results - last 24 hr 12/02/17 12/03/17 12/03/17 08:30 15:55 20:56 WBC RBC Hgb Hct MCV MCH MCHC RDW Plt Count MPV Sodium Potassium Chloride Carbon Dioxide Anion Gap BUN Creatinine Estimated GFR POC Glucose 229 H 297 H Random Glucose Hemoglobin A1c 7.8 H Calcium Phosphorus Albumin 12/04/17 12/04/17 12/04/17 00:17 04:15 07:00 WBC 17.0 H RBC 3.06 L Hgb 9.2 L Hct 27.9 L MCV 91.1 MCH 30.0 MCHC 32.9 RDW 14.4 Plt Count 498 H MPV 6.8 L Sodium Potassium Chloride Carbon Dioxide Anion Gap BUN Creatinine Estimated GFR POC Glucose 236 H 259 H Random Glucose Hemoglobin A1c Calcium Phosphorus Albumin 12/04/17 12/04/17 12/04/17 07:27 07:51 12:18 WBC RBC Hgb Hct MCV MCH MCHC RDW Plt Count MPV Sodium 130 L Potassium 3.8 Chloride 90 L Carbon Dioxide 27.3 Anion Gap 13 BUN 27 H Creatinine 4.38 H Estimated GFR 11 L POC Glucose 182 H 234 H Random Glucose 170 H Hemoglobin A1c Calcium 8.0 L Phosphorus 2.8 Albumin 1.4 L Microbiology 12/01/17 10:18 Wound - Wrist Gram Stain - Final 12/01/17 10:18 Wound - Wrist Wound Culture - Final Assessment and Plan - Assessment and Plan Left distal tibia and fibula fractures Due to critical values of H&H and significant elevation of blood sugars surgery was postponed Tuesday. received 2 units prbc Tuesday X-rays reviewed of left distal tibia and fibula and alignment is acceptable in splint for temporary treatment. We will continue to maintain the splint and be nonweightbearing on the left lower extremity She will continue to keep it elevated to decrease swelling Podus boot RLE Medical management for anemia, dialysis and blood sugars We will make her n.p.o. after midnight on Tuesday night for possible surgery on Tuesday if stable.
--- NOTE | 2017-12-04 14:36 | P.PNIM ---
Subjective Interval history: The patient said that she was having a lot of pain in her hand, especially at her pinky. She was happy to hear that she had good urine output. She said she talked with the kidney team earlier. Family at the bedside. Physical Exam Vital signs: Vital Signs 12/03/17 16:00 12/03/17 20:00 12/04/17 00:00 Temperature 98.5 F 98.4 F 97.8 F Pulse Rate 96 H 98 H 99 H Respiratory Rate 17 18 18 Blood Pressure 160/85 H 188/98 H 168/82 H Pulse Oximetry 90 L 93 L 92 L 12/04/17 01:43 12/04/17 02:49 12/04/17 04:00 Temperature 98.8 F Pulse Rate 102 H Respiratory Rate 17 17 18 Blood Pressure 158/86 H Pulse Oximetry 92 L 12/04/17 04:03 12/04/17 04:42 12/04/17 08:00 Temperature 99.1 F Pulse Rate 103 H 102 H Respiratory Rate 17 18 Blood Pressure 162/98 H Pulse Oximetry 92 L 12/04/17 08:06 12/04/17 10:20 12/04/17 12:00 Temperature 98.2 F Pulse Rate 106 H Respiratory Rate 16 18 17 Blood Pressure 155/98 H Pulse Oximetry 94 L Intake & Output 12/03/17 12/04/17 12/04/17 18:59 06:59 18:59 Intake Total 2004 105 / 105 Output Total 650 / 650 1125 / 1125 Balance 1355 / 1355 -1125 / -1125 105 / 105 Weight 86.2 kg Intake: IV 1105 / 1105 105 / 105 D5W/Normal Saline Inj 1,000 ML 1000 / 1000 @ 30 mls/hr IV.CONT .Q24H [facility] Rx#:[id number] Venofer Inj 100 MG In NS Inj 105 / 105 105 / 105 100 ML @ 105 mls/hr IV.SIG DAILY [facility] Rx#:[id number] Oral 900 / 900 Output: Urine 1125 / 1125 Urine Amount (Catheter) 650 / 650 Indwelling Urethral Catheter 650 / 650 Other: Date of Last Bowel Movement 12/02/17 12/01/17 Narrative: GENERAL: Well-developed, no distress. SKIN: Focused skin assessment warm/dry. HEAD: Atraumatic. Normocephalic. EYES: Pupils equal and round. No scleral icterus. No injection or drainage. ENT: No nasal bleeding or discharge. Mucous membranes pink and moist. NECK: Trachea midline. No JVD. CARDIOVASCULAR: Regular rate and rhythm. No murmur appreciated. RESPIRATORY: No accessory muscle use. Clear to auscultation. Breath sounds equal bilaterally. GASTROINTESTINAL: Abdomen soft, non-tender, nondistended. Hepatic and splenic margins not palpable. EXTREMITIES: Left leg is bandaged. NEUROLOGICAL: Awake and alert. No obvious cranial nerve deficits. Motor grossly within normal limits. Normal speech. PSYCHIATRIC: Appropriate mood and affect; insight and judgment normal. - Urinary Catheter Management Indwelling Urethral Catheter Cath placed during this visit: yes Reason for continuing: Acute urinary retention Insertion date: 12/01/17 Insertion time: 15:34 Results - Labs CBC & Chem 7: 12/04/17 07:00 12/04/17 07:51 Laboratory Results - last 24 hr 12/02/17 12/03/17 12/03/17 08:30 15:55 20:56 WBC RBC Hgb Hct MCV MCH MCHC RDW Plt Count MPV Sodium Potassium Chloride Carbon Dioxide Anion Gap BUN Creatinine Estimated GFR POC Glucose 229 H 297 H Random Glucose Hemoglobin A1c 7.8 H Calcium Phosphorus Albumin 12/04/17 12/04/17 12/04/17 00:17 04:15 07:00 WBC 17.0 H RBC 3.06 L Hgb 9.2 L Hct 27.9 L MCV 91.1 MCH 30.0 MCHC 32.9 RDW 14.4 Plt Count 498 H MPV 6.8 L Sodium Potassium Chloride Carbon Dioxide Anion Gap BUN Creatinine Estimated GFR POC Glucose 236 H 259 H Random Glucose Hemoglobin A1c Calcium Phosphorus Albumin 12/04/17 12/04/17 12/04/17 07:27 07:51 12:18 WBC RBC Hgb Hct MCV MCH MCHC RDW Plt Count MPV Sodium 130 L Potassium 3.8 Chloride 90 L Carbon Dioxide 27.3 Anion Gap 13 BUN 27 H Creatinine 4.38 H Estimated GFR 11 L POC Glucose 182 H 234 H Random Glucose 170 H Hemoglobin A1c Calcium 8.0 L Phosphorus 2.8 Albumin 1.4 L Microbiology 12/01/17 10:18 Wound - Wrist Gram Stain - Final 12/01/17 10:18 Wound - Wrist Wound Culture - Final Assessment and Plan - Plan Ankle fracture Ortho consult appreciated. - continue with pain control. - surgical intervention per ortho. Tentatively tomorrow. ESRD (end stage renal disease) On M// HD schedule- nephrology consulted. - continue dialysis as scheduled. Hypertension Well controlled. - resumed home meds and monitor. Infection of right hand Had recent surgical intervention. Hand surgery consult appreciated. - outpatient f/u with hand surgery. - pain control. Diabetes mellitus Using insulin pump at home. - place on accu-checks, start on Levemir and continue check with SSI for now. DVT (deep venous thrombosis) Patient says that she was diagnosed with DVT of the right upper extremity about eight months ago. - hold anticoagulation for now-pending ortho procedure. Anemia of chronic disease Transfused with PRBC during HD. - on Epogen. - will continue to monitor. DVT prophylaxis- per ortho
[2017-12-04 15:47] LABS: Bacteria,Urine Few /hpf; Bilirubin,Urine Negative (Negative); Clarity,Urine Hazy (Clear); Color,Urine Straw (Yellw/Straw); Glucose,Urine (UA) 500 or Greater mg/dL (Negative); Leukocyte Esterase,Urine Small (Negative); Mucus,Urine Few /lpf (Occasional); Nitrite,Urine Negative (Negative); Specific Gravity,Urine 1.007 (1.002-1.035); Squamous Epithelial Cell,Urine 5 /hpf (0-5); Transitional Epi Cells,Urine 2 /hpf
[2017-12-04] MEDS: Insulin Detemir Inj 1,000 UNIT/10 ML Vial SQ SCH (20:22)
[2017-12-05] MEDS ORDERED: Sodium Chlor 0.9% Inj 500 ML IV.SIG SCH (03:00)
[2017-12-05] MEDS ORDERED: Chlorhexidine Gluconate 2% 1 Pack (2 Cloths) TOPICAL SCH (03:00)
[2017-12-05] MEDS: Dextrose 5%/NaCl 0.9% Inj 1,000 ML IV.CONT SCH (03:06)
[2017-12-05] MEDS: Levothyroxine 88 MCG Tablet PO SCH (05:12)
[2017-12-05] MEDS ORDERED: Bupivacaine/Epinephrine Inj 0.25% 50 ML Vial ONE (06:42)
--- NOTE | 2017-12-05 06:42 | P.PNOP ---
Subjective Interval history: s/p left distal tibia fx doing well. no changes Physical Exam Vital signs: Vital Signs 12/04/17 08:00 12/04/17 08:06 12/04/17 09:00 Temperature 99.1 F Pulse Rate 102 H 100 H Respiratory Rate 18 16 Blood Pressure 162/98 H Pulse Oximetry 92 L 12/04/17 10:20 12/04/17 12:00 12/04/17 16:00 Temperature 98.2 F 99.0 F Pulse Rate 104 H 100 H Respiratory Rate 18 17 18 Blood Pressure 155/98 H 179/89 H Pulse Oximetry 94 L 93 L 12/04/17 20:00 12/04/17 20:54 12/04/17 23:59 Temperature 99.1 F Pulse Rate 104 H 91 H Respiratory Rate 18 17 Blood Pressure 174/96 H Pulse Oximetry 95 12/05/17 00:00 12/05/17 01:18 12/05/17 02:00 Temperature 100.2 F H Pulse Rate 89 Respiratory Rate 18 17 19 Blood Pressure 158/76 H Pulse Oximetry 96 12/05/17 03:01 12/05/17 04:00 12/05/17 05:18 Temperature 99.4 F Pulse Rate 91 H 96 H Respiratory Rate 18 18 Blood Pressure 156/82 H Pulse Oximetry 96 Intake & Output 12/04/17 12/04/17 12/05/17 06:59 18:59 06:59 Intake Total 1065 / 1065 Output Total 1125 / 1125 750 / 750 1225 / 1225 Balance -1125 / -1125 315 / 315 -1225 / -1225 Weight 86.2 kg 86.2 kg Intake: IV 105 / 105 Venofer Inj 100 MG In NS Inj 105 / 105 100 ML @ 105 mls/hr IV.SIG DAILY [facility] Rx#:[id number] Oral 960 / 960 Output: Urine 1125 / 1125 1225 / 1225 Urine Amount (Catheter) 750 / 750 Indwelling Urethral Catheter 750 / 750 Other: Date of Last Bowel Movement 12/01/17 12/02/17 12/04/17 # Bowel Movements 1 Narrative: LLE: +short leg splint. present and in good repair. nvi - Urinary Catheter Management Indwelling Urethral Catheter Cath placed during this visit: yes Reason for continuing: Acute urinary retention Insertion date: 12/01/17 Insertion time: 15:34 Results - Labs CBC & Chem 7: 12/04/17 07:00 12/04/17 07:51 Laboratory Results - last 24 hr 12/02/17 12/04/17 12/04/17 08:30 07:00 07:27 WBC 17.0 H RBC 3.06 L Hgb 9.2 L Hct 27.9 L MCV 91.1 MCH 30.0 MCHC 32.9 RDW 14.4 Plt Count 498 H MPV 6.8 L Sodium Potassium Chloride Carbon Dioxide Anion Gap BUN Creatinine Estimated GFR POC Glucose 182 H Random Glucose Hemoglobin A1c 7.8 H Calcium Phosphorus Albumin Urine Color Urine Clarity Urine pH Ur Specific [place] Urine Protein Urine Glucose (UA) Urine Ketones Urine Occult Blood Urine Nitrate Urine Bilirubin Urine Urobilinogen Ur Leukocyte Esterase Urine RBC Urine WBC Ur Squamous Epith Cells Ur Transition Epith Cell Urine Bacteria Urine Mucus Urine Yeast Micro UA Comment Urine Culture Comments 12/04/17 12/04/17 12/04/17 07:51 12:18 15:00 WBC RBC Hgb Hct MCV MCH MCHC RDW Plt Count MPV Sodium 130 L Potassium 3.8 Chloride 90 L Carbon Dioxide 27.3 Anion Gap 13 BUN 27 H Creatinine 4.38 H Estimated GFR 11 L POC Glucose 234 H Random Glucose 170 H Hemoglobin A1c Calcium 8.0 L Phosphorus 2.8 Albumin 1.4 L Urine Color Straw Urine Clarity Hazy H Urine pH 6.0 Ur Specific [place] 1.007 Urine Protein 100 H Urine Glucose (UA) 500 or greater Urine Ketones Negative Urine Occult Blood Small H Urine Nitrate Negative Urine Bilirubin Negative Urine Urobilinogen Less than 2 Ur Leukocyte Esterase Small H Urine RBC 6 H Urine WBC 49 H Ur Squamous Epith Cells 5 Ur Transition Epith Cell 2 Urine Bacteria Few H Urine Mucus Few H Urine Yeast Few H Micro UA Comment Cath-culture ind Urine Culture Comments Cath-cult indicated 12/04/17 12/04/17 12/05/17 16:39 20:18 02:54 WBC RBC Hgb Hct MCV MCH MCHC RDW Plt Count MPV Sodium Potassium Chloride Carbon Dioxide Anion Gap BUN Creatinine Estimated GFR POC Glucose 287 H 400 H 139 H Random Glucose Hemoglobin A1c Calcium Phosphorus Albumin Urine Color Urine Clarity Urine pH Ur Specific [place] Urine Protein Urine Glucose (UA) Urine Ketones Urine Occult Blood Urine Nitrate Urine Bilirubin Urine Urobilinogen Ur Leukocyte Esterase Urine RBC Urine WBC Ur Squamous Epith Cells Ur Transition Epith Cell Urine Bacteria Urine Mucus Urine Yeast Micro UA Comment Urine Culture Comments Microbiology 12/01/17 10:18 Wound - Wrist Gram Stain - Final 12/01/17 10:18 Wound - Wrist Wound Culture - Final Assessment and Plan - Assessment and Plan 1) Left distal tibia and fibula fractures Due to critical values of H&H and significant elevation of blood sugars surgery was postponed Tuesday. received 2 units prbc Tuesday X-rays reviewed of left distal tibia and fibula and alignment is acceptable in splint for temporary treatment. We will continue to maintain the splint and be nonweightbearing on the left lower extremity She will continue to keep it elevated to decrease swelling Podus boot RLE Medical management for anemia, dialysis and blood sugars planned surgery for left ankle today with Dr Gramajo
[2017-12-05] MEDS: Clindamycin Inj 600 MG/4 ML Vial ONE ×2 (09:19→11:58)
--- NOTE | 2017-12-05 10:29 | P.OP ---
- Preoperative Diagnosis (1) Fracture of distal end of tibia Date of procedure: 12/05/17 Procedure: Open treatment left distal tibia fracture with intramedullary nail fixation Anesthesia: KENNEDY Surgeon: Shayne Hughes MD Assistant Customer Service Manager: FARHAD Stark PA-C The surgical procedure was assisted by my physician assistant counsel. My P.A. presence was necessary throughout this case for the manipulation and positioning of the surgical extremity. My P.A. was assisting me throughout the duration of this procedure. The skill set of a physician assistant counsel was medically necessary to complete this procedure. During the surgical case the surgical supervisor was working at the back table and the physician assistant counsel was directly assisting me. Operation and Findings: Kavita sustained a comminuted left distal tibia and fibular fractures.. Patient has severe diabetic peripheral neuropathy. She had moderate swelling of her ankle. Given her overall medical condition as well as history of bilateral foot drop decision was made to proceed with intramedullary nail fixation of distal tibia fracture. Informed consent was obtained preoperatively and operative site was marked. She is brought operating. She is given IV sedation and general anesthesia. She received IV antibiotics. She is placed into a prone position. Left leg was prepped with alcohol followed Hibiclens and draped in usual sterile fashion. Timeout procedure was performed. Procedure began with reduction of the fracture. The ankle was manipulated. Ankle was reduced into appropriate alignment. Fluoroscopy confirmed appropriate position. Next the starting point was identified under fluoroscopy. A 2 cm incision was made along the plantar aspect of the heel. Guidepin was placed to the calcaneus. The guidepin was advanced into the talus and into the tibia. The fracture was held in reduced position. The ankle was held in neutral alignment. The guidepin was advanced into the tibial canal. Fluoroscopy confirmed appropriate guidepin placement opening reamer was now placed over the guidepin. A ball-tipped guidepin was now advanced into the tibial canal. Fluoroscopy confirmed appropriate guidepin placement. The canal sequentially reamed up to size 13. A Synthes hindfoot intramedullary 12 mm nail was selected. Nail was passed over the guidepin and fully seated. Using the insertional handle as a guide 2 screws were placed into the calcaneus, one screw was placed of the talus, and 2 screws were placed in the tibia. Fluoroscopy confirmed appropriate alignment of fracture with well-placed hardware. Incisions were thoroughly irrigated. Incisions were closed with 3-0 nylon. Sterile dressings were applied. She is placed into a well molded well- padded splint. She was transferred to recovery in stable condition.
[2017-12-05] MEDS ORDERED: fentaNYL Citrate Inj 100 MCG/2 ML Ampul ONE (10:53)
[2017-12-05] MEDS ORDERED: *Labetalol HCl Inj 100 MG/20 ML Vial PERIprocedural Use ONLY IV.PUSH ONE (11:33)
[2017-12-05] MEDS ORDERED: Neostigmine Inj 5 MG/5 ML Syringe IV.PUSH ONE (12:00)
[2017-12-05] MEDS ORDERED: Phenylephrine/NS 1000 MCG/10ML Syringe IV.PUSH ONE (12:00)
[2017-12-05] MEDS ORDERED: ceFAZolin 2 GM Premix Inj 2 GM/50 ML PIGGYBACK IV.SIG SCH (12:00)
[2017-12-05] MEDS ORDERED: Lidocaine PF 1% Inj 5 ML Syringe INFILTRATN ONE (12:00)
[2017-12-05] MEDS ORDERED: Succinylcholine Inj 100 MG/5 ML Syringe IV.PUSH ONE (12:00)
[2017-12-05] MEDS ORDERED: Glycopyrrolate Inj 1 MG/5 ML Syringe IV.PUSH ONE (12:00)
[2017-12-05] MEDS: Insulin NovoLOG Aspart Correctional Sugar Inj SQ SCH ×4 (12:01→22:04)
[2017-12-05] MEDS: Folic Acid 1 MG Tablet PO SCH (12:03)
[2017-12-05] MEDS: PARoxetine Liq 20 MG/10 ML UDC PO SCH (12:33)
[2017-12-05] MEDS: Calcium/Vitamin D 250/125 MG Tablet PO SCH ×2 (12:34→18:31)
--- NOTE | 2017-12-05 13:31 | P.PNNP ---
Subjective Interval history: Patient seen postop. No verbal complaints. Physical Exam Vital signs: Vital Signs 12/04/17 16:00 12/04/17 20:00 12/04/17 20:54 Temperature 99.0 F 99.1 F Pulse Rate 100 H 104 H Respiratory Rate 18 18 17 Blood Pressure 179/89 H 174/96 H Pulse Oximetry 93 L 95 12/04/17 23:59 12/05/17 00:00 12/05/17 01:18 Temperature 100.2 F H Pulse Rate 91 H 89 Respiratory Rate 18 17 Blood Pressure 158/76 H Pulse Oximetry 96 12/05/17 02:00 12/05/17 03:01 12/05/17 04:00 Temperature 99.4 F Pulse Rate 91 H 96 H Respiratory Rate 19 18 Blood Pressure 156/82 H Pulse Oximetry 96 12/05/17 05:18 12/05/17 08:00 12/05/17 09:49 Temperature 99.3 F Pulse Rate 96 H Respiratory Rate 18 18 Blood Pressure 152/86 H Pulse Oximetry 92 L 96 12/05/17 10:45 Temperature 98.3 F Pulse Rate 99 H Respiratory Rate 16 Blood Pressure 157/69 H Pulse Oximetry 92 L Intake & Output 12/04/17 12/05/17 12/05/17 18:59 06:59 18:59 Intake Total 1065 / 1065 400 / 400 Output Total 750 / 750 1225 / 1225 300 / 300 Balance 315 / 315 -1225 / -1225 100 / 100 Weight 86.2 kg Intake: IV 105 / 105 400 / 400 Venofer Inj 100 MG In NS Inj 105 / 105 100 ML @ 105 mls/hr IV.SIG DAILY [facility] Rx#:[id number] LR 1000 mL Inj 1,000 ML @ 30 400 / 400 mls/hr IV.SIG .Q24H [facility] Rx#: [id number] Oral 960 / 960 Output: Urine 1225 / 1225 Estimated Blood Loss 100 / 100 Urine Amount (Catheter) 750 / 750 200 / 200 Indwelling Urethral Catheter 750 / 750 200 / 200 Other: Date of Last Bowel Movement 12/02/17 12/04/17 # Bowel Movements 1 Narrative: GENERAL: Lying in bed. No distress. SKIN: Warm and dry. HEAD: Normocephalic. EYES: No scleral icterus. No injection or drainage. NECK: Supple, trachea midline. No JVD or lymphadenopathy. CARDIOVASCULAR: Regular rate and rhythm without murmurs, gallops, or rubs. RESPIRATORY: Breath sounds equal bilaterally. No accessory muscle use. GASTROINTESTINAL: Abdomen soft, non-tender, nondistended. MUSCULOSKELETAL: No cyanosis, or edema. Dressings overlying extremities not disturbed - Urinary Catheter Management Indwelling Urethral Catheter Cath placed during this visit: yes Reason for continuing: Other continuation reason Insertion date: 12/01/17 Insertion time: 15:34 Assessment and Plan - Assessment (1) ESRD (end stage renal disease) Code(s): N18.6 - End stage renal disease Status: Chronic Plan: Apparently secondary to diabetic nephropathy. Last HD 12/02/17 Laboratory results reviewed. Patient was counseled regarding the status of her renal function and it does appear that she does have end-stage renal disease as discussed with her despite fairly good urine output. She was advised that dialysis patients can have significant residual kidney function despite dialysis dependence with urinary output. Post discharge she is to follow-up with her regular outpatient edge banding off bearer who does not come to this institution. Hemodialysis today. Medication should be adjusted for the patient's end-stage renal disease when indicated. Avoid gadolinium. (2) Anemia of renal disease Code(s): D63.1 - Anemia in chronic kidney disease Status: Acute Plan: Continue Epogen and Venofer as ordered (3) Hypertension Code(s): I10 - Essential (primary) hypertension Status: Chronic Qualifiers: Hypertension type: essential hypertension Qualified Code(s): I10 - Essential (primary) hypertension Plan: Increase Toprol
--- NOTE | 2017-12-05 14:45 | XR ---
EXAM DATE: 12/05/2017 1:31 PM EDT AGE/SEX: 52 years / Female INDICATIONS: Left ankle fusion. CLINICAL DATA: This is the patient's subsequent encounter. Patient reports that signs and symptoms h ave been present for 4 - 6 days and indicates a pain score of Nonresponsive. MEDICAL/SURGICAL HISTORY: Non-responsive. Non-responsive. COMPARISON: [facility], ANKLE COMPLETE LEFT MIN 3V, 12/02/2017. . FINDINGS: Intramedullary maria teresa traverses the tibia with proximal and distal fixation screws and screws traversing the calcaneus with excellent anatomical alignment of the bony structures. CONCLUSION: Intact postsurgical changes for technique. Electronically signed by: Javed Tucker MD 12/05/2017 2:43 PM EDT
[2017-12-05] MEDS: Heparin 10,000 UNITS/10 ML Vial (for IV use) OTHER PRN (15:20)
[2017-12-05] MEDS: Furosemide 40 MG Tablet PO SCH (16:51)
--- NOTE | 2017-12-05 17:12 | P.PNIM ---
Subjective Interval history: The patient was seen in dialysis following surgery. She said that her right hand was hurting her a lot. She also said her left foot was hurting her a lot. She said she has not eaten all day. Discussed with nursing. Physical Exam Vital signs: Vital Signs 12/04/17 20:00 12/04/17 20:54 12/04/17 23:59 Temperature 99.1 F Pulse Rate 104 H 91 H Respiratory Rate 18 17 Blood Pressure 174/96 H Pulse Oximetry 95 12/05/17 00:00 12/05/17 01:18 12/05/17 02:00 Temperature 100.2 F H Pulse Rate 89 Respiratory Rate 18 17 19 Blood Pressure 158/76 H Pulse Oximetry 96 12/05/17 03:01 12/05/17 04:00 12/05/17 05:18 Temperature 99.4 F Pulse Rate 91 H 96 H Respiratory Rate 18 18 Blood Pressure 156/82 H Pulse Oximetry 96 12/05/17 08:00 12/05/17 09:49 12/05/17 10:45 Temperature 99.3 F 98.3 F Pulse Rate 96 H 99 H Respiratory Rate 18 16 Blood Pressure 152/86 H 157/69 H Pulse Oximetry 92 L 96 92 L 12/05/17 11:00 12/05/17 11:15 12/05/17 11:30 Temperature Pulse Rate 93 H 93 H 93 H Respiratory Rate 17 17 17 Blood Pressure 170/85 H 180/87 H 186/91 H Pulse Oximetry 93 L 93 L 94 L 12/05/17 11:45 12/05/17 11:55 12/05/17 12:00 Temperature 98.1 F 98.1 F Pulse Rate 91 H 93 H 92 H Respiratory Rate 19 19 19 Blood Pressure 171/83 H 154/68 H 159/82 H Pulse Oximetry 93 L 93 L 93 L Intake & Output 12/04/17 12/05/17 12/05/17 18:59 06:59 18:59 Intake Total 1065 / 1065 400 / 400 Output Total 750 / 750 1225 / 1225 300 / 300 Balance 315 / 315 -1225 / -1225 100 / 100 Weight 86.2 kg Intake: IV 105 / 105 400 / 400 Venofer Inj 100 MG In NS Inj 105 / 105 100 ML @ 105 mls/hr IV.SIG DAILY [facility] Rx#:[id number] LR 1000 mL Inj 1,000 ML @ 30 400 / 400 mls/hr IV.SIG .Q24H [facility] Rx#: [id number] Oral 960 / 960 Output: Urine 1225 / 1225 Estimated Blood Loss 100 / 100 Urine Amount (Catheter) 750 / 750 200 / 200 Indwelling Urethral Catheter 750 / 750 200 / 200 Other: Date of Last Bowel Movement 12/02/17 12/04/17 12/04/17 # Bowel Movements 1 Narrative: GENERAL: Well-developed, no distress. SKIN: Focused skin assessment warm/dry. Pale. HEAD: Atraumatic. Normocephalic. EYES: Pupils equal and round. No scleral icterus. No injection or drainage. ENT: No nasal bleeding or discharge. Mucous membranes pink and moist. NECK: Trachea midline. No JVD. CARDIOVASCULAR: Regular rate and rhythm. No murmur appreciated. RESPIRATORY: No accessory muscle use. Clear to auscultation. Breath sounds equal bilaterally. GASTROINTESTINAL: Abdomen soft, non-tender, nondistended. Hepatic and splenic margins not palpable. EXTREMITIES: Left leg is bandaged. Left hand is bandaged. Both tender to palpation. NEUROLOGICAL: Awake and alert. No obvious cranial nerve deficits. Motor grossly within normal limits. Normal speech. PSYCHIATRIC: Appropriate mood and affect; insight and judgment normal. - Urinary Catheter Management Indwelling Urethral Catheter Cath placed during this visit: yes Reason for continuing: Other continuation reason Insertion date: 12/01/17 Insertion time: 15:34 Results - Labs CBC & Chem 7: 12/04/17 07:00 12/04/17 07:51 Laboratory Results - last 24 hr 12/04/17 12/05/17 12/05/17 20:18 02:54 06:58 POC Glucose 400 H 139 H 158 H 12/05/17 12/05/17 10:51 12:18 POC Glucose 176 H 204 H Microbiology 12/04/17 15:00 Catheterized Urine Urine Culture - Preliminary No growth in 24 hours - Imaging Impressions Ankle X-Ray 12/05/17 00:00 CONCLUSION: Intact postsurgical changes for technique. Assessment and Plan - Plan Ankle fracture Ortho consult appreciated. S/p surgical repair 12/05. - continue with pain control and a bowel regimen. - follow up with surgery. - rehab efforts. - incentive spirometry. - resume Eliquis. ESRD (end stage renal disease) On // HD schedule- nephrology consulted. - continue dialysis as scheduled. Hypertension Well controlled. - resumed home meds and monitor. Infection of right hand Had recent surgical intervention. Hand surgery consult appreciated. - outpatient f/u with hand surgery. - pain control. - OT. Diabetes mellitus Using insulin pump at home. - place on accu-checks, start on Levemir and continue check with SSI for now. DVT (deep venous thrombosis) Patient says that she was diagnosed with DVT of the right upper extremity about eight months ago. - low dose Eliquis 12 hours following procedure, then resume regular Eliquis dose in AM. Anemia of chronic disease Transfused with PRBC during HD. - on Epogen. - will continue to monitor. DVT prophylaxis- per ortho
[2017-12-05] MEDS: Clindamycin 600 mg/NS Premix 600 MG/50 ML PIGGYBACK IV.SIG SCH (18:30)
[2017-12-05] MEDS: Senna/Docusate Sodium 8.6/50 MG Tablet PO SCH (22:02)
[2017-12-05] MEDS: Insulin Detemir Inj 1,000 UNIT/10 ML Vial SQ SCH (22:03)
[2017-12-06] MEDS: Dextrose 5%/NaCl 0.9% Inj 1,000 ML IV.CONT SCH (01:15)
[2017-12-06] MEDS: Clindamycin 600 mg/NS Premix 600 MG/50 ML PIGGYBACK IV.SIG SCH ×2 (01:17→10:14)
[2017-12-06] MEDS: Levothyroxine 88 MCG Tablet PO SCH (06:08)
[2017-12-06 06:29] LABS: Baso # (Auto) 0.1 th/mm3 (0.0-0.2); Baso % (Auto) 0.9 % (0.0-2.0); Eos # (Auto) 0.2 th/mm3 (0.0-0.4); Eos % (Auto) 1.8 % (0.0-4.0); Hematocrit 23.4 % (35.0-46.0); Hemoglobin 7.8 gm/dL (11.6-15.3); Lymph # (Auto) 1.6 th/mm3 (1.0-4.8); Lymph % (Auto) 11.7 % (9.0-44.0); Mean Corpuscular HGB Conc 33.4 % (32.0-36.0); Mean Corpuscular Volume 92.8 fL (80.0-100.0); Mono # (Auto) 1.4 th/mm3 (0.0-0.9); Mono % (Auto) 10.3 % (0.0-8.0); Neut % (Auto) 75.3 % (16.0-70.0); Platelet Count 422 th/mm3 (150-450); Red Blood Count 2.52 mil/mm3 (4.00-5.30); Red Cell Distribution Width 14.7 % (11.6-17.2); White Blood Count 13.3 th/mm3 (4.0-11.0)
--- NOTE | 2017-12-06 06:31 | P.PNOP ---
Subjective Interval history: POD 1 s/p left hindfoot fusion doing well. states pain but controlled Physical Exam Vital signs: Vital Signs 12/05/17 08:00 12/05/17 09:49 12/05/17 10:45 Temperature 99.3 F 98.3 F Pulse Rate 96 H 99 H Respiratory Rate 18 16 Blood Pressure 152/86 H 157/69 H Pulse Oximetry 92 L 96 92 L 12/05/17 11:00 12/05/17 11:15 12/05/17 11:30 Temperature Pulse Rate 93 H 93 H 93 H Respiratory Rate 17 17 17 Blood Pressure 170/85 H 180/87 H 186/91 H Pulse Oximetry 93 L 93 L 94 L 12/05/17 11:45 12/05/17 11:55 12/05/17 12:00 Temperature 98.1 F 98.1 F Pulse Rate 91 H 93 H 92 H Respiratory Rate 19 19 19 Blood Pressure 171/83 H 154/68 H 159/82 H Pulse Oximetry 93 L 93 L 93 L 12/05/17 20:00 12/05/17 20:05 12/05/17 21:46 Temperature 97.9 F Pulse Rate 100 H Respiratory Rate 16 Blood Pressure 125/72 Pulse Oximetry 99 93 L 98 12/06/17 00:00 12/06/17 00:13 12/06/17 04:00 Temperature 97.7 F 97.7 F Pulse Rate 91 H 100 H 95 H Respiratory Rate 16 16 Blood Pressure 127/75 125/79 Pulse Oximetry 98 99 Intake & Output 12/05/17 12/05/17 12/06/17 06:59 18:59 06:59 Intake Total 400 / 400 50 / 50 Output Total 1225 / 1225 6750 / 6750 Balance -1225 / -1225 -6350 / -6350 50 / 50 Weight 86.2 kg Intake: IV 400 / 400 50 / 50 Cleocin 600 mg/NS Premix 600 mg 50 / 50 In 50 ml @ 100 mls/hr IV.SIG Q8H [facility] Rx#:[id number] LR 1000 mL Inj 1,000 ML @ 30 400 / 400 mls/hr IV.SIG .Q24H [facility] Rx#: [id number] Output: Urine 1225 / 1225 Hemodialysis Amount 6000 / 6000 Estimated Blood Loss 100 / 100 Urine Amount (Catheter) 650 / 650 Indwelling Urethral Catheter 650 / 650 Other: Date of Last Bowel Movement 12/04/17 12/04/17 12/04/17 Narrative: LLE: +short leg splint. intact. NVI - Urinary Catheter Management Indwelling Urethral Catheter Cath placed during this visit: yes Reason for continuing: Hourly intake/output Insertion date: 12/01/17 Insertion time: 15:34 Results - Labs CBC & Chem 7: 12/04/17 07:00 12/04/17 07:51 Laboratory Results - last 24 hr 12/05/17 12/05/17 12/05/17 06:58 10:51 12:18 POC Glucose 158 H 176 H 204 H 12/05/17 21:48 POC Glucose 385 H Microbiology 12/04/17 15:00 Catheterized Urine Urine Culture - Preliminary No growth in 24 hours - Imaging Impressions Ankle X-Ray 12/05/17 00:00 CONCLUSION: Intact postsurgical changes for technique. Assessment and Plan - Assessment and Plan 1) Left distal tibia and fibula fractures s/p hindfoot fusion - POD 1 -NWB -maintain splint at all times -elevate -CM for Rehab placement -dvt prophylaxis -f/u with [facility] or [facility] in 2 weeks
[2017-12-06 06:44] LABS: Calcium 7.3 mg/dL (8.5-10.1); Potassium 4.3 meq/L (3.5-5.1)
[2017-12-06 07:05] LABS: Albumin 1.5 g/dL (3.4-5.0); Carbon Dioxide 28.7 meq/L (21.0-32.0); Magnesium 1.8 mg/dL (1.5-2.5); Phosphorus 2.8 mg/dL (2.5-4.9); Potassium 4.2 meq/L (3.5-5.1); Total Protein 6.3 g/dL (6.4-8.2)
[2017-12-06 07:14] LABS: Calcium 7.1 mg/dL (8.5-10.1)
[2017-12-06] MEDS: Insulin NovoLOG Aspart Correctional Sugar Inj SQ SCH ×4 (08:30→20:39)
[2017-12-06] MEDS: Furosemide 40 MG Tablet PO SCH (08:31)
[2017-12-06] MEDS: Folic Acid 1 MG Tablet PO SCH (08:31)
[2017-12-06] MEDS: Senna/Docusate Sodium 8.6/50 MG Tablet PO SCH ×2 (08:32→20:38)
[2017-12-06] MEDS: PARoxetine Liq 20 MG/10 ML UDC PO SCH (08:32)
[2017-12-06] MEDS: Calcium/Vitamin D 250/125 MG Tablet PO SCH ×3 (08:32→17:42)
--- NOTE | 2017-12-06 12:59 | P.PNIM ---
Subjective Interval history: The patient was about to eat lunch. She states that she has pain throughout her right shoulder, back and chest. She said this pain started after the surgery yesterday. She says she also gets some rib pain if she breathes deeply. She is tolerating a diet. Discussed with nursing. Physical Exam Vital signs: Vital Signs 12/05/17 20:00 12/05/17 20:05 12/05/17 21:46 Temperature 97.9 F Pulse Rate 100 H Respiratory Rate 16 Blood Pressure 125/72 Pulse Oximetry 99 93 L 98 12/06/17 00:00 12/06/17 00:13 12/06/17 04:00 Temperature 97.7 F 97.7 F Pulse Rate 91 H 100 H 95 H Respiratory Rate 16 16 Blood Pressure 127/75 125/79 Pulse Oximetry 98 99 12/06/17 04:12 Temperature Pulse Rate 100 H Respiratory Rate Blood Pressure Pulse Oximetry Intake & Output 12/05/17 12/06/17 12/06/17 18:59 06:59 18:59 Intake Total 400 / 400 580 / 580 Output Total 6750 / 6750 650 / 650 Balance -6350 / -6350 -70 / -70 Weight 86.5 kg Intake: IV 400 / 400 100 / 100 Cleocin 600 mg/NS Premix 600 mg 100 / 100 In 50 ml @ 100 mls/hr IV.SIG Q8H [facility] Rx#:[id number] LR 1000 mL Inj 1,000 ML @ 30 400 / 400 mls/hr IV.SIG .Q24H [facility] Rx#: [id number] Oral 480 / 480 Output: Hemodialysis Amount 6000 / 6000 Estimated Blood Loss 100 / 100 Urine Amount (Catheter) 650 / 650 650 / 650 Indwelling Urethral Catheter 650 / 650 650 / 650 Other: Date of Last Bowel Movement 12/04/17 12/04/17 Narrative: GENERAL: Well-developed, no distress. SKIN: Focused skin assessment warm/dry. Pale. HEAD: Atraumatic. Normocephalic. EYES: Pupils equal and round. No scleral icterus. No injection or drainage. ENT: No nasal bleeding or discharge. Mucous membranes pink and moist. NECK: Trachea midline. No JVD. CARDIOVASCULAR: Regular rate and rhythm. No murmur appreciated. RESPIRATORY: No accessory muscle use. Clear to auscultation. Breath sounds equal bilaterally. GASTROINTESTINAL: Abdomen soft, non-tender, nondistended. Hepatic and splenic margins not palpable. EXTREMITIES: Tenderness to palpation of right shoulder and chest. Left leg is bandaged. Left hand is bandaged. Both tender to palpation. NEUROLOGICAL: Awake and alert. No obvious cranial nerve deficits. Motor grossly within normal limits. Normal speech. PSYCHIATRIC: Flattened affect. - Urinary Catheter Management Indwelling Urethral Catheter Cath placed during this visit: yes Reason for continuing: Hourly intake/output Insertion date: 12/01/17 Insertion time: 15:34 Results - Labs CBC & Chem 7: 12/06/17 05:39 12/06/17 05:39 Laboratory Results - last 24 hr 12/05/17 12/06/17 12/06/17 21:48 05:39 05:39 WBC 13.3 H RBC 2.52 L Hgb 7.8 L Hct 23.4 L MCV 92.8 MCH 31.0 MCHC 33.4 RDW 14.7 Plt Count 422 MPV 7.0 Neut % (Auto) 75.3 H Lymph % (Auto) 11.7 [place] % (Auto) 10.3 H Eos % (Auto) 1.8 Baso % (Auto) 0.9 Neut # (Auto) 10.0 H Lymph # (Auto) 1.6 [place] # (Auto) 1.4 H Eos # (Auto) 0.2 Baso # (Auto) 0.1 WBC Differential . Differential Comment Auto diff final Sodium 133 L Potassium 4.3 Chloride 94 L Carbon Dioxide 29.0 Anion Gap 10 BUN 24 H Creatinine 3.83 H Estimated GFR 12 L POC Glucose 385 H Random Glucose 242 H Calcium 7.3 L* Prot Corrected Calcium 7.7 L Phosphorus Magnesium Total Protein 6.3 L Albumin 12/06/17 12/06/17 12/06/17 05:39 07:17 12:16 WBC RBC Hgb Hct MCV MCH MCHC RDW Plt Count MPV Neut % (Auto) Lymph % (Auto) [place] % (Auto) Eos % (Auto) Baso % (Auto) Neut # (Auto) Lymph # (Auto) [place] # (Auto) Eos # (Auto) Baso # (Auto) WBC Differential Differential Comment Sodium 133 L Potassium 4.2 Chloride 93 L Carbon Dioxide 28.7 Anion Gap 11 BUN 24 H Creatinine 3.72 H Estimated GFR 13 L POC Glucose 223 H 249 H Random Glucose 243 H Calcium 7.1 L* D Prot Corrected Calcium Phosphorus 2.8 Magnesium 1.8 Total Protein Albumin 1.5 L Microbiology 12/04/17 15:00 Catheterized Urine Urine Culture - Preliminary Yeast species - Imaging Impressions Ankle X-Ray 12/05/17 00:00 CONCLUSION: Intact postsurgical changes for technique. Assessment and Plan - Plan Ankle fracture Ortho consult appreciated. S/p surgical repair 12/05. - continue with pain control and a bowel regimen. - follow up with surgery. - rehab efforts. - incentive spirometry. - resumed Eliquis. Body pains Started following surgery 12/05, including right shoulder, back and chest pain. - check EKG, CXR and trops. - pain control. ESRD (end stage renal disease) On M/W/ HD schedule- nephrology consulted. - continue dialysis as scheduled. Hypertension Well controlled. - resumed home meds and monitor. Infection of right hand Had recent surgical intervention. Hand surgery consult appreciated. - outpatient f/u with hand surgery. - pain control. - OT. Diabetes mellitus Using insulin pump at home. - place on accu-checks, start on Levemir and continue check with SSI for now. DVT (deep venous thrombosis) Patient says that she was diagnosed with DVT of the right upper extremity about eight months ago. - continue Eliquis. Anemia of chronic disease Transfused with PRBC during HD. - on Epogen. - will continue to monitor. DVT prophylaxis- per ortho
--- NOTE | 2017-12-06 13:46 | XR ---
EXAM DATE: 12/06/2017 1:23 PM EDT AGE/SEX: 52 years / Female INDICATIONS: . Chest pain for one day. CLINICAL DATA: This is the patient's initial encounter. Patient reports that signs and symptoms have been present for 1 day and indicates a pain score of 7/10. MEDICAL/SURGICAL HISTORY: . Diabetes. Hypertension. Renal failure. Previous foot and ankle frac ture. . Left foot hardware. COMPARISON: C, CHEST 1V SINGLE AP, 12/05/2017. . FINDINGS: The heart is normal in size. There are bilateral effusions. There is bibasilar atelectasis more signi ficant on the left than the right. There is a dialysis catheter in satisfactory position. The visuali zed bony structures are grossly intact. CONCLUSION: 1. There are small pleural effusions and atelectasis in the lung bases bilaterally more significant on the left than the right. 2. Dialysis catheter in satisfactory position. Electronically signed by: Matthew Machado MD 12/06/2017 1:45 PM EDT
[2017-12-06] MEDS: HYDROmorphone PF Inj 2 MG/ML Vial IV.PUSH PRN (14:07)
[2017-12-06] MEDS: Insulin Detemir Inj 1,000 UNIT/10 ML Vial SQ SCH (20:39)
[2017-12-07] MEDS: Dextrose 5%/NaCl 0.9% Inj 1,000 ML IV.CONT SCH (00:22)
[2017-12-07] MEDS: HYDROmorphone PF Inj 2 MG/ML Vial IV.PUSH PRN ×2 (04:16→11:31)
[2017-12-07 05:45] LABS: Anion Gap 9 meq/L (5-15); Blood Urea Nitrogen 37 mg/dL (7-18); Calcium 7.3 mg/dL (8.5-10.1); Carbon Dioxide 28.3 meq/L (21.0-32.0); Chloride 93 meq/L (98-107); Glomerular Filtration Rate 10 mL/min (>89); Glucose,Random 269 mg/dL (74-106); Potassium 4.5 meq/L (3.5-5.1); Sodium 130 meq/L (136-145)
[2017-12-07 06:14] LABS: Total Protein 6.2 g/dL (6.4-8.2)
[2017-12-07 06:24] LABS: Baso # (Auto) 0.1 th/mm3 (0.0-0.2); Baso % (Auto) 0.9 % (0.0-2.0); Eos # (Auto) 0.4 th/mm3 (0.0-0.4); Hematocrit 23.6 % (35.0-46.0); Hemoglobin 7.8 gm/dL (11.6-15.3); Lymph # (Auto) 2.2 th/mm3 (1.0-4.8); Lymph % (Auto) 15.3 % (9.0-44.0); Mean Corpuscular HGB Conc 33.2 % (32.0-36.0); Mean Corpuscular Hemoglobin 31.2 pg (27.0-34.0); Mean Corpuscular Volume 93.9 fL (80.0-100.0); Mean Platelet Volume 7.1 fL (7.0-11.0); Mono # (Auto) 1.6 th/mm3 (0.0-0.9); Mono % (Auto) 11.1 % (0.0-8.0); Neut # (Auto) 9.8 th/mm3 (1.8-7.7); Neut % (Auto) 69.7 % (16.0-70.0); Platelet Count 408 th/mm3 (150-450); Red Blood Count 2.51 mil/mm3 (4.00-5.30); Red Cell Distribution Width 14.7 % (11.6-17.2); White Blood Count 14.1 th/mm3 (4.0-11.0)
--- NOTE | 2017-12-07 06:50 | P.PNOP ---
Subjective Interval history: POD 2 s/p left ankle hindfoot fusion doing well. pain improving. no new complaints. Physical Exam Vital signs: Vital Signs 12/06/17 08:00 12/06/17 12:00 12/06/17 20:00 Temperature 98.8 F 98.1 F Pulse Rate 97 H 90 95 H Respiratory Rate 16 16 20 Blood Pressure 156/72 H 134/68 116/70 Pulse Oximetry 94 L 96 91 L 12/06/17 20:06 12/06/17 20:27 12/06/17 21:47 Temperature Pulse Rate 100 H Respiratory Rate Blood Pressure Pulse Oximetry 97 93 L 12/06/17 23:47 12/07/17 00:00 12/07/17 03:45 Temperature 99.8 F H Pulse Rate 105 H 104 H 106 H Respiratory Rate 20 Blood Pressure 177/86 H Pulse Oximetry 93 L 12/07/17 04:00 Temperature 99 F Pulse Rate 108 H Respiratory Rate 20 Blood Pressure 162/75 H Pulse Oximetry 93 L Intake & Output 12/06/17 12/06/17 12/07/17 06:59 18:59 06:59 Intake Total 580 / 580 Output Total 650 / 650 450 / 450 Balance -70 / -70 -450 / -450 Weight 86.5 kg 88.3 kg Intake: IV 100 / 100 Cleocin 600 mg/NS Premix 600 mg 100 / 100 In 50 ml @ 100 mls/hr IV.SIG Q8H [facility] Rx#:[id number] Oral 480 / 480 Output: Urine Amount (Catheter) 650 / 650 450 / 450 Indwelling Urethral Catheter 650 / 650 450 / 450 Other: Date of Last Bowel Movement 12/04/17 12/04/17 12/04/17 Narrative: LLE: +splint. intact. NVI - Urinary Catheter Management Indwelling Urethral Catheter Cath placed during this visit: yes Reason for continuing: Hourly intake/output Insertion date: 12/01/17 Insertion time: 15:34 Results - Labs CBC & Chem 7: 12/07/17 04:20 12/07/17 04:20 Laboratory Results - last 24 hr 12/06/17 12/06/17 12/06/17 05:39 05:39 07:17 WBC RBC Hgb Hct MCV MCH MCHC RDW Plt Count MPV Neut % (Auto) Lymph % (Auto) [place] % (Auto) Eos % (Auto) Baso % (Auto) Neut # (Auto) Lymph # (Auto) [place] # (Auto) Eos # (Auto) Baso # (Auto) WBC Differential Differential Comment Sodium 133 L Potassium 4.2 Chloride 93 L Carbon Dioxide 28.7 Anion Gap 11 BUN 24 H Creatinine 3.72 H Estimated GFR 13 L POC Glucose 223 H Random Glucose 243 H Calcium 7.1 L* D Prot Corrected Calcium 7.7 L Phosphorus 2.8 Magnesium 1.8 Troponin I Total Protein 6.3 L Albumin 1.5 L 12/06/17 12/06/17 12/06/17 12:16 16:23 17:41 WBC RBC Hgb Hct MCV MCH MCHC RDW Plt Count MPV Neut % (Auto) Lymph % (Auto) [place] % (Auto) Eos % (Auto) Baso % (Auto) Neut # (Auto) Lymph # (Auto) [place] # (Auto) Eos # (Auto) Baso # (Auto) WBC Differential Differential Comment Sodium Potassium Chloride Carbon Dioxide Anion Gap BUN Creatinine Estimated GFR POC Glucose 249 H 392 H Random Glucose Calcium Prot Corrected Calcium Phosphorus Magnesium Troponin I Less than 0.02 L Total Protein Albumin 12/06/17 12/06/17 12/07/17 20:30 22:19 04:20 WBC 14.1 H RBC 2.51 L Hgb 7.8 L Hct 23.6 L MCV 93.9 MCH 31.2 MCHC 33.2 RDW 14.7 Plt Count 408 MPV 7.1 Neut % (Auto) 69.7 Lymph % (Auto) 15.3 [place] % (Auto) 11.1 H Eos % (Auto) 3.0 Baso % (Auto) 0.9 Neut # (Auto) 9.8 H Lymph # (Auto) 2.2 [place] # (Auto) 1.6 H Eos # (Auto) 0.4 Baso # (Auto) 0.1 WBC Differential . Differential Comment Auto diff final Sodium Potassium Chloride Carbon Dioxide Anion Gap BUN Creatinine Estimated GFR POC Glucose 409 H Random Glucose Calcium Prot Corrected Calcium Phosphorus Magnesium Troponin I Less than 0.02 L Total Protein Albumin 12/07/17 04:20 WBC RBC Hgb Hct MCV MCH MCHC RDW Plt Count MPV Neut % (Auto) Lymph % (Auto) [place] % (Auto) Eos % (Auto) Baso % (Auto) Neut # (Auto) Lymph # (Auto) [place] # (Auto) Eos # (Auto) Baso # (Auto) WBC Differential Differential Comment Sodium 130 L Potassium 4.5 Chloride 93 L Carbon Dioxide 28.3 Anion Gap 9 BUN 37 H Creatinine 4.52 H Estimated GFR 10 L POC Glucose Random Glucose 269 H Calcium 7.3 L* Prot Corrected Calcium 7.8 L Phosphorus Magnesium Troponin I Less than 0.02 L Total Protein 6.2 L Albumin Microbiology 12/04/17 15:00 Catheterized Urine Urine Culture - Preliminary Yeast species - Imaging Impressions Chest X-Ray 12/06/17 12:51 CONCLUSION: 1. There are small pleural effusions and atelectasis in the lung bases bilaterally more significant on the left than the right. 2. Dialysis catheter in satisfactory position. Assessment and Plan - Assessment and Plan 1) Left distal tibia and fibula fractures s/p hindfoot fusion - POD 2 -NWB -maintain splint at all times -elevate -CM for Rehab placement -ortho cleared for DC to rehab once arrangements made and patient medically cleared -dvt prophylaxis -f/u with [facility] or [facility] in 2 weeks
[2017-12-07] MEDS: Levothyroxine 88 MCG Tablet PO SCH (07:17)
[2017-12-07] MEDS: Insulin NovoLOG Aspart Correctional Sugar Inj SQ SCH ×4 (08:58→21:26)
[2017-12-07] MEDS ORDERED: Insulin Detemir Inj 1,000 UNIT/10 ML Vial SQ SCH ×2 (09:15→21:00)
[2017-12-07] MEDS: Senna/Docusate Sodium 8.6/50 MG Tablet PO SCH ×2 (09:19→21:19)
[2017-12-07] MEDS: PARoxetine Liq 20 MG/10 ML UDC PO SCH (09:19)
[2017-12-07] MEDS: Furosemide 40 MG Tablet PO SCH (09:20)
[2017-12-07] MEDS: Folic Acid 1 MG Tablet PO SCH (09:20)
[2017-12-07] MEDS: Calcium/Vitamin D 250/125 MG Tablet PO SCH ×3 (09:20→17:43)
--- NOTE | 2017-12-07 15:18 | ECG ---
Date Performed: 12/06/2017 Time Performed: 13:41:03 PTAGE: 52 years EKG: Sinus rhythm BORDERLINE ECG PREVIOUS TRACING : 11/30/2017 15.34 DOCTOR: Parker Marks Interpretating Date/Time 12/07/2017 15:17:18
--- NOTE | 2017-12-07 17:23 | P.PNIM ---
Subjective Interval history: The patient was seen following dialysis. She said that the pains on the right side of her body were better. She said her right hand was feeling better. She said she still has not had a bowel movement since Tuesday. She said she has been having sugar popsicles which she will try not to do in the future. Discussed with nursing at the bedside. Physical Exam Vital signs: Vital Signs 12/06/17 20:00 12/06/17 20:06 12/06/17 20:27 Temperature 98.1 F Pulse Rate 95 H 100 H Respiratory Rate 20 Blood Pressure 116/70 Pulse Oximetry 91 L 97 12/06/17 21:47 12/06/17 23:47 12/07/17 00:00 Temperature 99.8 F H Pulse Rate 105 H 104 H Respiratory Rate 20 Blood Pressure 177/86 H Pulse Oximetry 93 L 93 L 12/07/17 03:45 12/07/17 04:00 12/07/17 08:45 Temperature 99 F 97.2 F L Pulse Rate 106 H 108 H 107 H Respiratory Rate 20 18 Blood Pressure 162/75 H 188/86 H Pulse Oximetry 93 L 92 L 12/07/17 12:34 Temperature Pulse Rate Respiratory Rate Blood Pressure Pulse Oximetry 93 L Intake & Output 12/06/17 12/07/17 12/07/17 18:59 06:59 18:59 Output Total 450 / 450 3000 / 3000 Balance -450 / -450 -3000 / -3000 Weight 88.3 kg Output: Hemodialysis Amount 3000 / 3000 Urine Amount (Catheter) 450 / 450 Indwelling Urethral Catheter 450 / 450 Other: Date of Last Bowel Movement 12/04/17 12/04/17 Narrative: GENERAL: Well-developed, no distress. SKIN: Focused skin assessment warm/dry. Pale. HEAD: Atraumatic. Normocephalic. EYES: Pupils equal and round. No scleral icterus. No injection or drainage. ENT: No nasal bleeding or discharge. Mucous membranes pink and moist. NECK: Trachea midline. No JVD. CARDIOVASCULAR: Regular rate and rhythm. No murmur appreciated. RESPIRATORY: No accessory muscle use. Clear to auscultation. Breath sounds equal bilaterally. GASTROINTESTINAL: Abdomen soft, non-tender, nondistended. Hepatic and splenic margins not palpable. EXTREMITIES: Left leg is bandaged. Left hand is bandaged. Both tender to palpation. NEUROLOGICAL: Awake and alert. No obvious cranial nerve deficits. Motor grossly within normal limits. Normal speech. - Urinary Catheter Management Indwelling Urethral Catheter Cath placed during this visit: yes Reason for continuing: Hourly intake/output Insertion date: 12/01/17 Insertion time: 15:34 Results - Labs CBC & Chem 7: 12/07/17 04:20 12/07/17 04:20 Laboratory Results - last 24 hr 12/06/17 12/06/17 12/06/17 17:41 20:30 22:19 WBC RBC Hgb Hct MCV MCH MCHC RDW Plt Count MPV Neut % (Auto) Lymph % (Auto) [place] % (Auto) Eos % (Auto) Baso % (Auto) Neut # (Auto) Lymph # (Auto) [place] # (Auto) Eos # (Auto) Baso # (Auto) WBC Differential Differential Comment Sodium Potassium Chloride Carbon Dioxide Anion Gap BUN Creatinine Estimated GFR POC Glucose 392 H 409 H Random Glucose Calcium Prot Corrected Calcium Troponin I Less than 0.02 L Total Protein 12/07/17 12/07/17 12/07/17 04:20 04:20 07:46 WBC 14.1 H RBC 2.51 L Hgb 7.8 L Hct 23.6 L MCV 93.9 MCH 31.2 MCHC 33.2 RDW 14.7 Plt Count 408 MPV 7.1 Neut % (Auto) 69.7 Lymph % (Auto) 15.3 [place] % (Auto) 11.1 H Eos % (Auto) 3.0 Baso % (Auto) 0.9 Neut # (Auto) 9.8 H Lymph # (Auto) 2.2 [place] # (Auto) 1.6 H Eos # (Auto) 0.4 Baso # (Auto) 0.1 WBC Differential . Differential Comment Auto diff final Sodium 130 L Potassium 4.5 Chloride 93 L Carbon Dioxide 28.3 Anion Gap 9 BUN 37 H Creatinine 4.52 H Estimated GFR 10 L POC Glucose 358 H Random Glucose 269 H Calcium 7.3 L* Prot Corrected Calcium 7.8 L Troponin I Less than 0.02 L Total Protein 6.2 L 12/07/17 11:28 WBC RBC Hgb Hct MCV MCH MCHC RDW Plt Count MPV Neut % (Auto) Lymph % (Auto) [place] % (Auto) Eos % (Auto) Baso % (Auto) Neut # (Auto) Lymph # (Auto) [place] # (Auto) Eos # (Auto) Baso # (Auto) WBC Differential Differential Comment Sodium Potassium Chloride Carbon Dioxide Anion Gap BUN Creatinine Estimated GFR POC Glucose 320 H Random Glucose Calcium Prot Corrected Calcium Troponin I Total Protein Microbiology 12/04/17 15:00 Catheterized Urine Urine Culture - Final Lindsay glabrata Assessment and Plan - Plan Ankle fracture Ortho consult appreciated. S/p surgical repair 12/05. - continue with pain control and a bowel regimen. - follow up with surgery. - rehab efforts. - incentive spirometry. - resumed Eliquis. Body pains Started following surgery 12/05, including right shoulder, back and chest pain. EKG, CXR and trops unremarkable. Improved. - pain control. ESRD (end stage renal disease) On // HD schedule- nephrology consulted. - continue dialysis as scheduled. Hypertension Well controlled. - resumed home meds and monitor. Infection of right hand Had recent surgical intervention. Hand surgery consult appreciated. - outpatient f/u with hand surgery. - pain control. - OT. Diabetes mellitus Using insulin pump at home. - place on accu-checks. - Levemir 15 units BID. Adjust as needed. DVT (deep venous thrombosis) Patient says that she was diagnosed with DVT of the right upper extremity about eight months ago. - continue Eliquis. Anemia of chronic disease Transfused with PRBC during HD. - on Epogen. - will continue to monitor. DVT prophylaxis- per ortho
[2017-12-07] MEDS: Polyethylene Glycol 3350 17 GM Packet PO SCH (19:06)
[2017-12-07] MEDS: Insulin Detemir Inj 1,000 UNIT/10 ML Vial SQ SCH (21:26)
--- NOTE | 2017-12-07 21:28 | P.PNOP ---
Physical Exam Vital signs: Vital Signs 12/06/17 21:47 12/06/17 23:47 12/07/17 00:00 Temperature 99.8 F H Pulse Rate 105 H 104 H Respiratory Rate 20 Blood Pressure 177/86 H Pulse Oximetry 93 L 93 L 12/07/17 03:45 12/07/17 04:00 12/07/17 08:00 Temperature 99 F 99.1 F Pulse Rate 106 H 108 H 108 H Respiratory Rate 20 16 Blood Pressure 162/75 H 182/88 H Pulse Oximetry 93 L 94 L 12/07/17 08:45 12/07/17 12:00 12/07/17 12:34 Temperature 97.2 F L 95 F L Pulse Rate 107 H 100 H Respiratory Rate 18 16 Blood Pressure 188/86 H 187/88 H Pulse Oximetry 92 L 95 93 L 12/07/17 16:00 Temperature 98.5 F Pulse Rate 100 H Respiratory Rate 16 Blood Pressure 158/69 H Pulse Oximetry 92 L Intake & Output 12/07/17 12/07/17 12/08/17 06:59 18:59 06:59 Output Total 450 / 450 3450 / 3450 Balance -450 / -450 -3450 / -3450 Weight 88.3 kg Output: Hemodialysis Amount 3000 / 3000 Urine Amount (Catheter) 450 / 450 450 / 450 Indwelling Urethral Catheter 450 / 450 450 / 450 Other: Date of Last Bowel Movement 12/04/17 12/04/17 - Urinary Catheter Management Indwelling Urethral Catheter Cath placed during this visit: yes Reason for continuing: Hourly intake/output Insertion date: 12/01/17 Insertion time: 15:34 Results - Labs CBC & Chem 7: 12/07/17 04:20 12/07/17 04:20 Laboratory Results - last 24 hr 12/06/17 12/06/17 12/07/17 20:30 22:19 04:20 WBC 14.1 H RBC 2.51 L Hgb 7.8 L Hct 23.6 L MCV 93.9 MCH 31.2 MCHC 33.2 RDW 14.7 Plt Count 408 MPV 7.1 Neut % (Auto) 69.7 Lymph % (Auto) 15.3 [place] % (Auto) 11.1 H Eos % (Auto) 3.0 Baso % (Auto) 0.9 Neut # (Auto) 9.8 H Lymph # (Auto) 2.2 [place] # (Auto) 1.6 H Eos # (Auto) 0.4 Baso # (Auto) 0.1 WBC Differential . Differential Comment Auto diff final Sodium Potassium Chloride Carbon Dioxide Anion Gap BUN Creatinine Estimated GFR POC Glucose 409 H Random Glucose Calcium Prot Corrected Calcium Troponin I Less than 0.02 L Total Protein 12/07/17 12/07/17 12/07/17 04:20 07:46 11:28 WBC RBC Hgb Hct MCV MCH MCHC RDW Plt Count MPV Neut % (Auto) Lymph % (Auto) [place] % (Auto) Eos % (Auto) Baso % (Auto) Neut # (Auto) Lymph # (Auto) [place] # (Auto) Eos # (Auto) Baso # (Auto) WBC Differential Differential Comment Sodium 130 L Potassium 4.5 Chloride 93 L Carbon Dioxide 28.3 Anion Gap 9 BUN 37 H Creatinine 4.52 H Estimated GFR 10 L POC Glucose 358 H 320 H Random Glucose 269 H Calcium 7.3 L* Prot Corrected Calcium 7.8 L Troponin I Less than 0.02 L Total Protein 6.2 L 12/07/17 12/07/17 17:16 21:18 WBC RBC Hgb Hct MCV MCH MCHC RDW Plt Count MPV Neut % (Auto) Lymph % (Auto) [place] % (Auto) Eos % (Auto) Baso % (Auto) Neut # (Auto) Lymph # (Auto) [place] # (Auto) Eos # (Auto) Baso # (Auto) WBC Differential Differential Comment Sodium Potassium Chloride Carbon Dioxide Anion Gap BUN Creatinine Estimated GFR POC Glucose 159 H 209 H Random Glucose Calcium Prot Corrected Calcium Troponin I Total Protein Microbiology 12/04/17 15:00 Catheterized Urine Urine Culture - Final Lindsay glabrata Assessment and Plan - Assessment and Plan Patient cleared for discharge by hand surgery. Patient to followup with Dr Sue on discharge. Dr Sue also stated if needed patient could be transferred back to [facility] after leg surgery for him to provide additional care on hand. Please call his office with any concerns
[2017-12-08] MEDS: Dextrose 5%/NaCl 0.9% Inj 1,000 ML IV.CONT SCH (03:09)
[2017-12-08] MEDS: Levothyroxine 88 MCG Tablet PO SCH (05:12)
[2017-12-08 05:48] LABS: Hematocrit 23.4 % (35.0-46.0); Hemoglobin 7.7 gm/dL (11.6-15.3); Mean Corpuscular HGB Conc 32.9 % (32.0-36.0); Mean Corpuscular Hemoglobin 30.6 pg (27.0-34.0); Mean Corpuscular Volume 93.1 fL (80.0-100.0); Mean Platelet Volume 7.2 fL (7.0-11.0); Platelet Count 443 th/mm3 (150-450); Red Blood Count 2.52 mil/mm3 (4.00-5.30); Red Cell Distribution Width 14.9 % (11.6-17.2); White Blood Count 15.4 th/mm3 (4.0-11.0)
[2017-12-08 05:54] LABS: Calcium 7.9 mg/dL (8.5-10.1); Potassium 4.2 meq/L (3.5-5.1)
--- NOTE | 2017-12-08 06:45 | P.PNOP ---
Subjective Interval history: Resting comfortably with no new complaints Physical Exam Vital signs: Vital Signs 12/07/17 08:00 12/07/17 08:45 12/07/17 12:00 Temperature 99.1 F 97.2 F L 95 F L Pulse Rate 108 H 107 H 100 H Respiratory Rate 16 18 16 Blood Pressure 182/88 H 188/86 H 187/88 H Pulse Oximetry 94 L 92 L 95 12/07/17 12:34 12/07/17 16:00 12/07/17 20:00 Temperature 98.5 F 99.5 F Pulse Rate 100 H 102 H Respiratory Rate 16 18 Blood Pressure 158/69 H 161/69 H Pulse Oximetry 93 L 92 L 91 L 12/08/17 00:00 12/08/17 04:00 Temperature 99.4 F 98.8 F Pulse Rate 108 H 106 H Respiratory Rate 16 18 Blood Pressure 145/67 H 183/83 H Pulse Oximetry 91 L 92 L Intake & Output 12/07/17 12/07/17 12/08/17 06:59 18:59 06:59 Intake Total 420 / 420 Output Total 450 / 450 3450 / 3450 600 / 600 Balance -450 / -450 -3450 / -3450 -180 / -180 Weight 88.3 kg 103.8 kg Intake: Oral 420 / 420 Output: Urine 600 / 600 Hemodialysis Amount 3000 / 3000 Urine Amount (Catheter) 450 / 450 450 / 450 Indwelling Urethral Catheter 450 / 450 450 / 450 Other: Date of Last Bowel Movement 12/04/17 12/04/17 Narrative: Left lower extremity: No pain with hip or knee range of motion. Splint in place. Clean dry and intact. Good capillary refills and movement of toes. Weak dorsiflexion - Urinary Catheter Management Indwelling Urethral Catheter Cath placed during this visit: yes Reason for continuing: Hourly intake/output Insertion date: 12/01/17 Insertion time: 15:34 Results - Labs CBC & Chem 7: 12/08/17 05:06 12/08/17 05:06 Laboratory Results - last 24 hr 12/07/17 12/07/17 12/07/17 07:46 11:28 17:16 WBC RBC Hgb Hct MCV MCH MCHC RDW Plt Count MPV Sodium Potassium Chloride Carbon Dioxide Anion Gap BUN Creatinine Estimated GFR POC Glucose 358 H 320 H 159 H Random Glucose Calcium 12/07/17 12/08/17 12/08/17 21:18 05:06 05:06 WBC 15.4 H RBC 2.52 L Hgb 7.7 L Hct 23.4 L MCV 93.1 MCH 30.6 MCHC 32.9 RDW 14.9 Plt Count 443 MPV 7.2 Sodium 133 L Potassium 4.2 Chloride 94 L Carbon Dioxide 28.0 Anion Gap 11 BUN 26 H Creatinine 3.22 H Estimated GFR 15 L POC Glucose 209 H Random Glucose 286 H Calcium 7.9 L Microbiology 12/04/17 15:00 Catheterized Urine Urine Culture - Final Lindsay glabrata Assessment and Plan - Assessment and Plan Intramedullary maria teresa fixation of the left distal tibia with hindfoot fusion POD 3 Maintain splint Strict nonweightbearing Elevation to decrease swelling Plan for discharge to rehab when bed available orthopedically cleared Follow-up with Dr. Gramajo or PA in 2 weeks
[2017-12-08] MEDS: PARoxetine Liq 20 MG/10 ML UDC PO SCH (08:03)
[2017-12-08] MEDS: Folic Acid 1 MG Tablet PO SCH (08:04)
[2017-12-08] MEDS: Calcium/Vitamin D 250/125 MG Tablet PO SCH ×3 (08:04→17:53)
[2017-12-08] MEDS: Furosemide 40 MG Tablet PO SCH (08:04)
[2017-12-08] MEDS: Senna/Docusate Sodium 8.6/50 MG Tablet PO SCH ×2 (08:04→21:38)
[2017-12-08] MEDS: Insulin Detemir Inj 1,000 UNIT/10 ML Vial SQ SCH ×2 (08:05→21:47)
[2017-12-08] MEDS: Polyethylene Glycol 3350 17 GM Packet PO SCH (08:05)
[2017-12-08] MEDS: Insulin NovoLOG Aspart Correctional Sugar Inj SQ SCH ×4 (08:06→21:48)
[2017-12-08] MEDS: LORazepam 0.5 MG Tablet PO PRN (08:17)
--- NOTE | 2017-12-08 12:07 | P.PNIM ---
Subjective Interval history: The patient said that she was feeling better pain vo. She said that she was a little nervous about going to rehab. She says she thinks she can start using her insulin pump again tonight. Discussed with nursing. Physical Exam Vital signs: Vital Signs 12/07/17 12:34 12/07/17 16:00 12/07/17 20:00 Temperature 98.5 F 99.5 F Pulse Rate 100 H 102 H Respiratory Rate 16 18 Blood Pressure 158/69 H 161/69 H Pulse Oximetry 93 L 92 L 91 L 12/08/17 00:00 12/08/17 04:00 12/08/17 08:00 Temperature 99.4 F 98.8 F 98.1 F Pulse Rate 108 H 106 H 93 H Respiratory Rate 16 18 16 Blood Pressure 145/67 H 183/83 H 174/79 H Pulse Oximetry 91 L 92 L 93 L Intake & Output 12/07/17 12/08/17 12/08/17 18:59 06:59 18:59 Intake Total 420 / 420 120 / 120 Output Total 3450 / 3450 600 / 600 1150 / 1150 Balance -3450 / -3450 -180 / -180 -1030 / -1030 Weight 103.8 kg Intake: Oral 420 / 420 120 / 120 Output: Urine 600 / 600 750 / 750 Hemodialysis Amount 3000 / 3000 Urine Amount (Catheter) 450 / 450 400 / 400 Indwelling Urethral Catheter 450 / 450 400 / 400 Other: Date of Last Bowel Movement 12/04/17 12/04/17 Narrative: GENERAL: Well-developed, no distress. SKIN: Focused skin assessment warm/dry. Pale. HEAD: Atraumatic. Normocephalic. EYES: Pupils equal and round. No scleral icterus. No injection or drainage. ENT: No nasal bleeding or discharge. Mucous membranes pink and moist. NECK: Trachea midline. No JVD. CARDIOVASCULAR: Regular rate and rhythm. No murmur appreciated. RESPIRATORY: No accessory muscle use. Clear to auscultation. Breath sounds equal bilaterally. GASTROINTESTINAL: Abdomen soft, non-tender, nondistended. Hepatic and splenic margins not palpable. EXTREMITIES: Left leg is bandaged. Left hand is bandaged. Both tender to palpation. NEUROLOGICAL: Awake and alert. No obvious cranial nerve deficits. Motor grossly within normal limits. Normal speech. - Urinary Catheter Management Indwelling Urethral Catheter Cath placed during this visit: yes Reason for continuing: Acute urinary retention Insertion date: 12/01/17 Insertion time: 15:34 Results - Labs CBC & Chem 7: 12/08/17 05:06 12/08/17 05:06 Laboratory Results - last 24 hr 12/07/17 12/07/17 12/08/17 17:16 21:18 05:06 WBC 15.4 H RBC 2.52 L Hgb 7.7 L Hct 23.4 L MCV 93.1 MCH 30.6 MCHC 32.9 RDW 14.9 Plt Count 443 MPV 7.2 Sodium Potassium Chloride Carbon Dioxide Anion Gap BUN Creatinine Estimated GFR POC Glucose 159 H 209 H Random Glucose Calcium 12/08/17 12/08/17 05:06 07:59 WBC RBC Hgb Hct MCV MCH MCHC RDW Plt Count MPV Sodium 133 L Potassium 4.2 Chloride 94 L Carbon Dioxide 28.0 Anion Gap 11 BUN 26 H Creatinine 3.22 H Estimated GFR 15 L POC Glucose 318 H Random Glucose 286 H Calcium 7.9 L Microbiology 12/04/17 15:00 Catheterized Urine Urine Culture - Final Lindsay glabrata Assessment and Plan - Plan Ankle fracture Ortho consult appreciated. S/p surgical repair 12/05. - continue with pain control and a bowel regimen. - follow up with surgery. - rehab efforts. - incentive spirometry. - resumed Eliquis. UTI Urine culture grew yeast. - repeat UA now that Toth has been removed. - follow CBC. Body pains Started following surgery 12/05, including right shoulder, back and chest pain. EKG, CXR and trops unremarkable. Improved. - pain control. ESRD (end stage renal disease) On // HD schedule- nephrology consulted. - continue dialysis as scheduled. Will need to be set-up as an outpt. Hypertension Has been fluctuating. - resumed home meds. Toprol has been increased. Add hydralazine. Infection of right hand Had recent surgical intervention. Hand surgery consult appreciated. - outpatient f/u with hand surgery. - pain control. - OT. Diabetes mellitus Using insulin pump at home. - place on accu-checks. - Levemir 20 units BID. Adjust as needed. - pt to start using insulin pump to manage blood sugar. DVT (deep venous thrombosis) Patient says that she was diagnosed with DVT of the right upper extremity about eight months ago. - continue Eliquis. Anemia of chronic disease Transfused with PRBC during HD. - on Epogen. - will continue to monitor. DVT prophylaxis- per ortho
[2017-12-08] MEDS: hydrALAZINE 25 MG Tablet PO SCH ×2 (12:23→17:53)
[2017-12-08] MEDS ORDERED: Insulin Detemir Inj 1,000 UNIT/10 ML Vial SQ ONE (13:00)
--- NOTE | 2017-12-08 14:37 | P.PNNP ---
Subjective Interval history: Patient was seen during dialysis today. Additional treatment today to improve her volume status. Patient had no verbal complaints. She indicated to me that she will be going to a rehab center in [place]. She usually gets dialysis in the [place] part of the [facility]. Physical Exam Vital signs: Vital Signs 12/07/17 16:00 12/07/17 20:00 12/08/17 00:00 Temperature 98.5 F 99.5 F 99.4 F Pulse Rate 100 H 102 H 108 H Respiratory Rate 16 18 16 Blood Pressure 158/69 H 161/69 H 145/67 H Pulse Oximetry 92 L 91 L 91 L 12/08/17 04:00 12/08/17 08:00 12/08/17 12:00 Temperature 98.8 F 98.1 F 98.6 F Pulse Rate 106 H 93 H 90 Respiratory Rate 18 16 Blood Pressure 183/83 H 174/79 H 150/67 H Pulse Oximetry 92 L 93 L 96 12/08/17 14:04 Temperature Pulse Rate Respiratory Rate Blood Pressure Pulse Oximetry 93 L Intake & Output 12/07/17 12/08/17 12/08/17 18:59 06:59 18:59 Intake Total 420 / 420 120 / 120 Output Total 3450 / 3450 600 / 600 1150 / 1150 Balance -3450 / -3450 -180 / -180 -1030 / -1030 Weight 103.8 kg Intake: Oral 420 / 420 120 / 120 Output: Urine 600 / 600 750 / 750 Hemodialysis Amount 3000 / 3000 Urine Amount (Catheter) 450 / 450 400 / 400 Indwelling Urethral Catheter 450 / 450 400 / 400 Other: Date of Last Bowel Movement 12/04/17 12/08/17 # Bowel Movements 1 Narrative: GENERAL: Well-developed, no distress. SKIN: Focused skin assessment warm/dry. Pale. HEAD: Atraumatic. Normocephalic. no scleral icterus. . NECK: Trachea midline. No JVD. CARDIOVASCULAR: Regular rate and rhythm. No murmur appreciated. RESPIRATORY: No accessory muscle use. Clear to auscultation. Breath sounds equal bilaterally. GASTROINTESTINAL: Abdomen soft, non-tender, nondistended. Hepatic and splenic margins not palpable. EXTREMITIES: Left leg is bandaged. Left hand is bandaged. Both tender to palpation. Trace edema ankles at this time. NEUROLOGICAL: Awake and alert. No obvious cranial nerve deficits. Normal speech. - Urinary Catheter Management Indwelling Urethral Catheter Cath placed during this visit: yes Reason for continuing: Acute urinary retention Insertion date: 12/01/17 Insertion time: 15:34 Assessment and Plan - Assessment (1) ESRD (end stage renal disease) Code(s): N18.6 - End stage renal disease Status: Chronic Plan: Apparently secondary to diabetic nephropathy. The patient usually receives hemodialysis [facility] facility. According to the patient should be going to a rehab center in [place] and this will be quite a distance away. Will consult case management to make arrangements for dialysis at a local [facility] facility in [place]. Post discharge she is to follow-up with her regular outpatient printed circuit board assembly repairer or a printed circuit board assembly repairer with privileges at a [facility] in [place]. Resume usual outpatient dialysis schedule tomorrow. Tuesday. Medication should be adjusted for the patient's end-stage renal disease when indicated. Avoid gadolinium. (2) Anemia of renal disease Code(s): D63.1 - Anemia in chronic kidney disease Status: Acute Plan: Continue Epogen and Venofer as ordered (3) Hypertension Code(s): I10 - Essential (primary) hypertension Status: Chronic Qualifiers: Hypertension type: essential hypertension Qualified Code(s): I10 - Essential (primary) hypertension Plan: Increase Toprol
[2017-12-08] MEDS: Heparin 10,000 UNITS/10 ML Vial (for IV use) OTHER PRN (16:05)
[2017-12-09] MEDS: Dextrose 5%/NaCl 0.9% Inj 1,000 ML IV.CONT SCH ×2 (05:05→05:25)
[2017-12-09] MEDS: Levothyroxine 88 MCG Tablet PO SCH (05:09)
[2017-12-09 07:11] LABS: Baso # (Auto) 0.1 th/mm3 (0.0-0.2); Baso % (Auto) 1.1 % (0.0-2.0); Eos # (Auto) 0.3 th/mm3 (0.0-0.4); Eos % (Auto) 2.6 % (0.0-4.0); Hematocrit 22.1 % (35.0-46.0); Hemoglobin 7.2 gm/dL (11.6-15.3); Lymph # (Auto) 1.9 th/mm3 (1.0-4.8); Lymph % (Auto) 15.3 % (9.0-44.0); Mean Corpuscular HGB Conc 32.6 % (32.0-36.0); Mean Corpuscular Hemoglobin 30.5 pg (27.0-34.0); Mean Corpuscular Volume 93.6 fL (80.0-100.0); Mean Platelet Volume 7.1 fL (7.0-11.0); Mono # (Auto) 1.3 th/mm3 (0.0-0.9); Mono % (Auto) 10.2 % (0.0-8.0); Neut # (Auto) 8.9 th/mm3 (1.8-7.7); Neut % (Auto) 70.8 % (16.0-70.0); Platelet Count 479 th/mm3 (150-450); Red Blood Count 2.36 mil/mm3 (4.00-5.30); Red Cell Distribution Width 14.7 % (11.6-17.2); White Blood Count 12.6 th/mm3 (4.0-11.0)
[2017-12-09 07:43] LABS: Calcium 7.8 mg/dL (8.5-10.1); Carbon Dioxide 30.6 meq/L (21.0-32.0); Potassium 3.8 meq/L (3.5-5.1)
[2017-12-09] MEDS: hydrALAZINE 25 MG Tablet PO SCH ×3 (09:04→17:17)
[2017-12-09] MEDS: Insulin NovoLOG Aspart Correctional Sugar Inj SQ SCH ×4 (09:04→20:17)
[2017-12-09] MEDS: Folic Acid 1 MG Tablet PO SCH (09:04)
[2017-12-09] MEDS: Senna/Docusate Sodium 8.6/50 MG Tablet PO SCH ×2 (09:05→20:08)
[2017-12-09] MEDS: Calcium/Vitamin D 250/125 MG Tablet PO SCH ×3 (09:05→17:17)
[2017-12-09] MEDS: Insulin Detemir Inj 1,000 UNIT/10 ML Vial SQ SCH ×2 (09:05→20:17)
[2017-12-09] MEDS: Furosemide 40 MG Tablet PO SCH (09:05)
[2017-12-09] MEDS: PARoxetine Liq 20 MG/10 ML UDC PO SCH (09:05)
[2017-12-09] MEDS: Polyethylene Glycol 3350 17 GM Packet PO SCH (09:05)
--- NOTE | 2017-12-09 10:42 | P.PNNP ---
Subjective Interval history: Pt seen during HD Tolerating session well Had extra HD 12/08/17 for fluid removal. UF at 4L today. <Lynn Mendez R - Last Filed: 12/09/17 10:37> Physical Exam Vital signs: Vital Signs 12/08/17 12:00 12/08/17 14:04 12/08/17 17:54 Temperature 98.6 F Pulse Rate 90 92 H Respiratory Rate 16 Blood Pressure 150/67 H 164/76 H Pulse Oximetry 96 93 L 12/08/17 22:08 12/08/17 22:35 12/08/17 23:46 Temperature Pulse Rate 99 H Respiratory Rate 18 Blood Pressure Pulse Oximetry 97 12/08/17 23:57 12/09/17 00:00 12/09/17 00:54 Temperature 98.5 F Pulse Rate 108 H 99 H Respiratory Rate 18 18 Blood Pressure 174/82 H Pulse Oximetry 98 12/09/17 01:38 12/09/17 04:11 12/09/17 05:53 Temperature Pulse Rate 102 H Respiratory Rate 18 18 Blood Pressure Pulse Oximetry 12/09/17 05:59 Temperature 97.9 F Pulse Rate 99 H Respiratory Rate 18 Blood Pressure 181/86 H Pulse Oximetry 93 L Intake & Output 12/08/17 12/09/17 12/09/17 18:59 06:59 18:59 Intake Total 120 / 120 420 / 420 240 / 240 Output Total 1150 / 1150 Balance -1030 / -1030 420 / 420 240 / 240 Weight 103.8 kg Intake: Oral 120 / 120 420 / 420 240 / 240 Output: Urine 750 / 750 Urine Amount (Catheter) 400 / 400 Indwelling Urethral Catheter 400 / 400 Other: # Voids 1 Date of Last Bowel Movement 12/08/17 12/08/17 12/08/17 # Bowel Movements 1 1 - Constitutional no acute distress - Routine HEENT Exam Head: Present: normocephalic - Routine Neck Exam Present: supple - Routine Respiratory Exam Present: CTA bilaterally - Routine Cardiovascular Exam Present: RRR, S1, S2 - Routine Psychiatric Exam Present: normal affect - Urinary Catheter Management Indwelling Urethral Catheter Cath placed during this visit: yes Reason for continuing: Acute urinary retention Insertion date: 12/01/17 Insertion time: 15:34 <Lynn Mendez - Last Filed: 12/09/17 10:37> Vital signs: Vital Signs 12/09/17 16:00 12/09/17 20:00 12/09/17 20:39 Temperature 99.2 F 98.8 F Pulse Rate 106 H 102 H Respiratory Rate 18 18 18 Blood Pressure 173/81 H 148/73 H Pulse Oximetry 96 95 12/10/17 00:02 12/10/17 01:19 12/10/17 03:04 Temperature Pulse Rate 104 H Respiratory Rate 18 18 Blood Pressure Pulse Oximetry 12/10/17 04:00 12/10/17 07:43 12/10/17 08:00 Temperature 98.9 F 98.2 F Pulse Rate 106 H 112 H 106 H Respiratory Rate 18 17 Blood Pressure 160/77 H 149/76 H Pulse Oximetry 95 94 L 12/10/17 09:00 12/10/17 12:00 Temperature 98.9 F Pulse Rate 105 H 96 H Respiratory Rate 17 Blood Pressure 144/69 H Pulse Oximetry 94 L Intake & Output 12/09/17 12/10/17 12/10/17 18:59 06:59 18:59 Intake Total 480 / 480 480 / 480 Output Total 4000 / 4000 Balance -3520 / -3520 480 / 480 Intake: Oral 480 / 480 480 / 480 Output: Hemodialysis Amount 4000 / 4000 Other: # Voids 0 Date of Last Bowel Movement 12/08/17 12/08/17 - Urinary Catheter Management Indwelling Urethral Catheter Cath placed during this visit: no <Liliana Linda - Last Filed: 12/10/17 14:34> Assessment and Plan - Assessment (1) ESRD (end stage renal disease) Code(s): N18.6 - End stage renal disease Status: Chronic Plan: Apparently secondary to diabetic nephropathy. Seen during HD today. Continue typical MWF schedule. CM appreciated in assisting transition to outpatient HD---appears she has an arranged chair time of 3pm at [facility] in [place] for MWF. To f/u with regular outpatient medical apparatus model maker in [facility] post-discharge from rehab. OK to be discharged after HD today if cleared by other specialties and primary. Medication should be adjusted for the patient's end-stage renal disease when indicated. Avoid gadolinium. (2) Anemia of renal disease Code(s): D63.1 - Anemia in chronic kidney disease Status: Acute Plan: Continue Epogen and Venofer as ordered (3) Hypertension Code(s): I10 - Essential (primary) hypertension Status: Chronic Qualifiers: Hypertension type: essential hypertension Qualified Code(s): I10 - Essential (primary) hypertension Plan: BP still elevated. Increase Procardia <Lynn Mendez - Last Filed: 12/09/17 10:37> - Assessment (1) ESRD (end stage renal disease) Code(s): N18.6 - End stage renal disease Status: Chronic (2) Anemia of renal disease Code(s): D63.1 - Anemia in chronic kidney disease Status: Acute (3) Hypertension Code(s): I10 - Essential (primary) hypertension Status: Chronic Qualifiers: Hypertension type: essential hypertension Qualified Code(s): I10 - Essential (primary) hypertension - Attending Attestation The exam, history, and the medical decision-making described in the above note were completed with the assistance of the PANneka. I reviewed and agree with the findings presented. <Liliana Linda - Last Filed: 12/10/17 14:34>
--- NOTE | 2017-12-09 12:57 | P.DS ---
Date of admission: 11/30/17 13:52 Primary care physician: No Primary Care Physician Anticipated date of discharge: 12/09/17 Brief History from admission: patient is a 52 y/o female with history of ESRD-on HD, hypertension, diabetes, neuropathy who presented to ER after she fell earlier this morning. she was just released from [facility] after she was treated with right hand infection. she says that this morning when she was trying to go to bathroom she lost her balance and fell- after which she started to have some pain to the left ankle. she denies any syncopal episodes or any prodromal symptoms before the fall.she's on M/W/ schedule for her HD. DS: Diagnosis - Discharge Diagnosis (1) Fracture of distal end of tibia Status: Acute (2) ESRD (end stage renal disease) Status: Chronic (3) Diabetes mellitus Status: Chronic (4) Hypertension Status: Chronic (5) Infection of right hand Status: Acute DS: Medications - Discharge Medications Prescriptions: hydrocodone-acetaminophen [[place]] 1 tab PO Q4H PRN #40 tab PRN Reason: pain 6-10 lorazepam 0.5 mg PO Q8H PRN #8 tab PRN Reason: Anxiety DS: Summary Hospital Course: Left distal tibia and fibula fractures Orthopedic surgery was consulted. S/p surgical repair 12/05. She received pain control with a bowel regimen. She worked with physical therapy. She used incentive spirometry. She was resumed on Eliquis. She will follow up with surgery as an outpt. UTI Urine culture grew yeast. The pt is asymptomatic. Her Toth was removed. Recommend repeat UA. ESRD (end stage renal disease) On /W/ HD schedule. Nephrology was consulted. She was continued on dialysis as scheduled. She received Epogen and two units of red cells for her anemia. She will follow up with nephrology as an outpt. Hypertension The pt was continued on Toprol XL. We added hydralazine. She will follow up with her PCP. Infection of right hand Had recent surgical intervention. Hand surgery was consulted. She received pain control and worked with OT. She was started on Keflex. She will have outpatient f/u with hand surgery. Diabetes mellitus She uses an insulin pump at home. She was placed on accu-checks. Insulin was titrated to Levemir 20 units BID. The pt will start using her insulin pump to manage her blood sugar upon discharge. If she is unable to do so, would continue Levemir 20 units BID with a sliding scale. DVT (deep venous thrombosis) Patient says that she was diagnosed with DVT of the right upper extremity about eight months ago. Her Eliquis was resumed following surgery. - Time Spent with Patient Total time spent providing and/or coordinating discharge services: Greater than 30 minutes - Quality: VTE Deep Vein Thrombosis/Pulmonary Embolism Present on Admission: No Exam Vital signs: Vital Signs 12/08/17 14:04 12/08/17 17:54 12/08/17 22:08 Temperature Pulse Rate 92 H Respiratory Rate 18 Blood Pressure 164/76 H Pulse Oximetry 93 L 12/08/17 22:35 12/08/17 23:46 12/08/17 23:57 Temperature Pulse Rate 99 H 108 H Respiratory Rate Blood Pressure Pulse Oximetry 97 12/09/17 00:00 12/09/17 00:54 12/09/17 01:38 Temperature 98.5 F Pulse Rate 99 H Respiratory Rate 18 18 18 Blood Pressure 174/82 H Pulse Oximetry 98 12/09/17 04:11 12/09/17 05:53 12/09/17 05:59 Temperature 97.9 F Pulse Rate 102 H 99 H Respiratory Rate 18 18 Blood Pressure 181/86 H Pulse Oximetry 93 L Intake & Output 12/08/17 12/09/17 12/09/17 18:59 06:59 18:59 Intake Total 120 / 120 420 / 420 240 / 240 Output Total 1150 / 1150 4000 / 4000 Balance -1030 / -1030 420 / 420 -3760 / -3760 Weight 103.8 kg Intake: Oral 120 / 120 420 / 420 240 / 240 Output: Urine 750 / 750 Hemodialysis Amount 4000 / 4000 Urine Amount (Catheter) 400 / 400 Indwelling Urethral Catheter 400 / 400 Other: # Voids 1 Date of Last Bowel Movement 12/08/17 12/08/17 12/08/17 # Bowel Movements 1 1 Results Procedures completed during hospitalization: Left distal tibia and fibula fractures s/p hindfoot fusion Labs on day of discharge: Labs from last 24 hours 12/09/17 12/09/17 12/09/17 08:16 06:37 06:37 WBC 12.6 H RBC 2.36 L Hgb 7.2 L Hct 22.1 L MCV 93.6 MCH 30.5 MCHC 32.6 RDW 14.7 Plt Count 479 H MPV 7.1 Neut % (Auto) 70.8 H Lymph % (Auto) 15.3 Isabella % (Auto) 10.2 H Eos % (Auto) 2.6 Baso % (Auto) 1.1 Neut # (Auto) 8.9 H Lymph # (Auto) 1.9 Isabella # (Auto) 1.3 H Eos # (Auto) 0.3 Baso # (Auto) 0.1 WBC Differential . Differential Comment Auto diff final Sodium 135 L Potassium 3.8 Chloride 95 L Carbon Dioxide 30.6 Anion Gap 9 BUN 23 H Creatinine 2.58 H Estimated GFR 20 L POC Glucose 84 Random Glucose 115 H D Calcium 7.8 L 12/08/17 12/08/17 19:43 17:22 WBC RBC Hgb Hct MCV MCH MCHC RDW Plt Count MPV Neut % (Auto) Lymph % (Auto) Isabella % (Auto) Eos % (Auto) Baso % (Auto) Neut # (Auto) Lymph # (Auto) Isabella # (Auto) Eos # (Auto) Baso # (Auto) WBC Differential Differential Comment Sodium Potassium Chloride Carbon Dioxide Anion Gap BUN Creatinine Estimated GFR POC Glucose 251 H 120 H Random Glucose Calcium - Impressions ITS Impressions Foot X-Ray 11/30/17 12:30 CONCLUSION: Fracture distal tibia and fibula as above. Ankle CT 11/30/17 13:44 CONCLUSION: 1. Fracture dislocation distal tibia and fibula as above. Ankle X-Ray 12/05/17 00:00 CONCLUSION: Intact postsurgical changes for technique. Chest X-Ray 12/06/17 12:51 CONCLUSION: 1. There are small pleural effusions and atelectasis in the lung bases bilaterally more significant on the left than the right. 2. Dialysis catheter in satisfactory position. Discharge Plan - Discharge Disposition Patient Disposition: 03 Discharge to SNF - Discharge Condition Condition: Stable - Discharge Order Discharge Orders: Discharge Order (Routine); Ordered 12/09/17 Ordered By: Nacho Serna Hand Surgery Clear for Discharge (Routine); Ordered 12/02/17 Ordered By: Elena Wheatley Orthopedic Clear for Discharge (Routine); Ordered 12/07/17 Ordered By: Ramon Cagle - Discharge Details Anticipated Discharge Date: 12/09/17 - Physicians Team Primary Care Provider: Primary Care Physici,No Attending Provider: Joshua Aguilar Other Providers: Liliana Linda MD ; Sander Monsivais MD ; Shayne Hughes MD ; Elena Wheatley MD
--- NOTE | 2017-12-09 14:05 | P.PNIM ---
Subjective Interval history: The patient was seen in during dialysis. She had no acute complaints. She said her should be visiting her today. She was willing to go to skilled rehab when a bed was available. Discussed with nursing. Physical Exam Vital signs: Vital Signs 12/08/17 14:04 12/08/17 17:54 12/08/17 22:08 Temperature Pulse Rate 92 H Respiratory Rate 18 Blood Pressure 164/76 H Pulse Oximetry 93 L 12/08/17 22:35 12/08/17 23:46 12/08/17 23:57 Temperature Pulse Rate 99 H 108 H Respiratory Rate Blood Pressure Pulse Oximetry 97 12/09/17 00:00 12/09/17 00:54 12/09/17 01:38 Temperature 98.5 F Pulse Rate 99 H Respiratory Rate 18 18 18 Blood Pressure 174/82 H Pulse Oximetry 98 12/09/17 04:11 12/09/17 05:53 12/09/17 05:59 Temperature 97.9 F Pulse Rate 102 H 99 H Respiratory Rate 18 18 Blood Pressure 181/86 H Pulse Oximetry 93 L 12/09/17 13:11 Temperature 98.5 F Pulse Rate 103 H Respiratory Rate 18 Blood Pressure 173/87 H Pulse Oximetry 97 Intake & Output 12/08/17 12/09/17 12/09/17 18:59 06:59 18:59 Intake Total 120 / 120 420 / 420 240 / 240 Output Total 1150 / 1150 4000 / 4000 Balance -1030 / -1030 420 / 420 -3760 / -3760 Weight 103.8 kg Intake: Oral 120 / 120 420 / 420 240 / 240 Output: Urine 750 / 750 Hemodialysis Amount 4000 / 4000 Urine Amount (Catheter) 400 / 400 Indwelling Urethral Catheter 400 / 400 Other: # Voids 1 Date of Last Bowel Movement 12/08/17 12/08/17 12/08/17 # Bowel Movements 1 1 Narrative: GENERAL: Well-developed, no distress. SKIN: Focused skin assessment warm/dry. Pale. HEAD: Atraumatic. Normocephalic. EYES: Pupils equal and round. No scleral icterus. No injection or drainage. ENT: No nasal bleeding or discharge. Mucous membranes pink and moist. NECK: Trachea midline. No JVD. CARDIOVASCULAR: Regular rate and rhythm. No murmur appreciated. RESPIRATORY: No accessory muscle use. Clear to auscultation. Breath sounds equal bilaterally. GASTROINTESTINAL: Abdomen soft, non-tender, nondistended. Hepatic and splenic margins not palpable. EXTREMITIES: Left leg is bandaged. Left hand is bandaged. Both tender to palpation. NEUROLOGICAL: Awake and alert. No obvious cranial nerve deficits. Motor grossly within normal limits. Normal speech. - Urinary Catheter Management Indwelling Urethral Catheter Cath placed during this visit: yes Reason for continuing: Acute urinary retention Insertion date: 12/01/17 Insertion time: 15:34 Results - Labs CBC & Chem 7: 12/09/17 06:37 12/09/17 06:37 Laboratory Results - last 24 hr 12/08/17 12/08/17 12/09/17 17:22 19:43 06:37 WBC 12.6 H RBC 2.36 L Hgb 7.2 L Hct 22.1 L MCV 93.6 MCH 30.5 MCHC 32.6 RDW 14.7 Plt Count 479 H MPV 7.1 Neut % (Auto) 70.8 H Lymph % (Auto) 15.3 [place] % (Auto) 10.2 H Eos % (Auto) 2.6 Baso % (Auto) 1.1 Neut # (Auto) 8.9 H Lymph # (Auto) 1.9 [place] # (Auto) 1.3 H Eos # (Auto) 0.3 Baso # (Auto) 0.1 WBC Differential . Differential Comment Auto diff final Sodium Potassium Chloride Carbon Dioxide Anion Gap BUN Creatinine Estimated GFR POC Glucose 120 H 251 H Random Glucose Calcium 12/09/17 12/09/17 06:37 08:16 WBC RBC Hgb Hct MCV MCH MCHC RDW Plt Count MPV Neut % (Auto) Lymph % (Auto) [place] % (Auto) Eos % (Auto) Baso % (Auto) Neut # (Auto) Lymph # (Auto) [place] # (Auto) Eos # (Auto) Baso # (Auto) WBC Differential Differential Comment Sodium 135 L Potassium 3.8 Chloride 95 L Carbon Dioxide 30.6 Anion Gap 9 BUN 23 H Creatinine 2.58 H Estimated GFR 20 L POC Glucose 84 Random Glucose 115 H D Calcium 7.8 L - Procedures Left distal tibia and fibula fractures s/p hindfoot fusion Assessment and Plan - Assessment (1) Fracture of distal end of tibia Code(s): S82.309A - Unspecified fracture of lower end of unspecified tibia, initial encounter for closed fracture Status: Acute (2) ESRD (end stage renal disease) Code(s): N18.6 - End stage renal disease Status: Chronic Plan: on / schedule- will consult nephrology. (3) Diabetes mellitus Code(s): E11.9 - Type 2 diabetes mellitus without complications Status: Chronic Plan: start on accu-check with SSI. (4) Hypertension Code(s): I10 - Essential (primary) hypertension Status: Chronic Plan: resume home meds and monitor. (5) Infection of right hand Code(s): L08.9 - Local infection of the skin and subcutaneous tissue, unspecified Status: Acute Plan: had recent surgical intervention- will obtain the medical record from [facility]. d/w 's PA ( her hand surgeon); recommended wound care, Keflex and outpatient f/u with . - Plan Ankle fracture Ortho consult appreciated. S/p surgical repair 12/05. - continue with pain control and a bowel regimen. - follow up with surgery. - rehab efforts. - incentive spirometry. - resumed Eliquis. UTI Urine culture grew yeast. - repeat UA now that Toth has been removed. - follow CBC. Body pains Started following surgery 12/05, including right shoulder, back and chest pain. EKG, CXR and trops unremarkable. Improved. - pain control. ESRD (end stage renal disease) On / HD schedule- nephrology consulted. - continue dialysis as scheduled. Last session was 12/09. Hypertension Has been fluctuating. - resumed home meds. Toprol has been increased. Added hydralazine. Infection of right hand Had recent surgical intervention. Hand surgery consult appreciated. - outpatient f/u with hand surgery. - pain control. - OT. - continue Keflex. Diabetes mellitus Using insulin pump at home. - place on accu-checks. - Levemir 20 units BID. Adjust as needed. - pt to start using insulin pump to manage blood sugar when available. DVT (deep venous thrombosis) Patient says that she was diagnosed with DVT of the right upper extremity about eight months ago. - continue Eliquis. Anemia of chronic disease Transfused with PRBC during HD. - on Epogen. - will continue to monitor. DVT prophylaxis- per ortho Discharge Planning: Awaiting placement (3) Diabetes mellitus Qualifiers: Diabetes mellitus type: type 1 (4) Hypertension Qualifiers: Hypertension type: essential hypertension Qualified Code(s): I10 - Essential (primary) hypertension
[2017-12-09] MEDS: LORazepam 0.5 MG Tablet PO PRN (15:37)
[2017-12-09] MEDS: HYDROmorphone PF Inj 2 MG/ML Vial IV.PUSH PRN (20:09)
[2017-12-10] MEDS: Dextrose 5%/NaCl 0.9% Inj 1,000 ML IV.CONT SCH (06:09)
[2017-12-10] MEDS: Levothyroxine 88 MCG Tablet PO SCH (06:11)
--- NOTE | 2017-12-10 06:53 | P.PNOP ---
Subjective Interval history: Resting comfortably with no new complaints Physical Exam Vital signs: Vital Signs 12/09/17 13:11 12/09/17 16:00 12/09/17 20:00 Temperature 98.5 F 99.2 F 98.8 F Pulse Rate 103 H 106 H 102 H Respiratory Rate 18 18 18 Blood Pressure 173/87 H 173/81 H 148/73 H Pulse Oximetry 97 96 95 12/09/17 20:39 12/10/17 01:19 12/10/17 03:04 Temperature Pulse Rate Respiratory Rate 18 18 18 Blood Pressure Pulse Oximetry 12/10/17 04:00 Temperature 98.9 F Pulse Rate 106 H Respiratory Rate 18 Blood Pressure 160/77 H Pulse Oximetry 95 Intake & Output 12/09/17 12/09/17 12/10/17 06:59 18:59 06:59 Intake Total 420 / 420 480 / 480 480 / 480 Output Total 4000 / 4000 Balance 420 / 420 -3520 / -3520 480 / 480 Weight 103.8 kg Intake: Oral 420 / 420 480 / 480 480 / 480 Output: Hemodialysis Amount 4000 / 4000 Other: # Voids 1 0 Date of Last Bowel Movement 12/08/17 12/08/17 12/08/17 # Bowel Movements 1 Narrative: Left lower extremity: Clean dry dressings intact. Intact distal pulses. No pain with hip or knee range of motion - Urinary Catheter Management Indwelling Urethral Catheter Cath placed during this visit: yes Reason for continuing: Acute urinary retention Insertion date: 12/01/17 Insertion time: 15:34 Results - Labs CBC & Chem 7: 12/09/17 06:37 12/09/17 06:37 Laboratory Results - last 24 hr 12/09/17 12/09/17 12/09/17 06:37 06:37 08:16 WBC 12.6 H RBC 2.36 L Hgb 7.2 L Hct 22.1 L MCV 93.6 MCH 30.5 MCHC 32.6 RDW 14.7 Plt Count 479 H MPV 7.1 Neut % (Auto) 70.8 H Lymph % (Auto) 15.3 [place] % (Auto) 10.2 H Eos % (Auto) 2.6 Baso % (Auto) 1.1 Neut # (Auto) 8.9 H Lymph # (Auto) 1.9 [place] # (Auto) 1.3 H Eos # (Auto) 0.3 Baso # (Auto) 0.1 WBC Differential . Differential Comment Auto diff final Sodium 135 L Potassium 3.8 Chloride 95 L Carbon Dioxide 30.6 Anion Gap 9 BUN 23 H Creatinine 2.58 H Estimated GFR 20 L POC Glucose 84 Random Glucose 115 H D Calcium 7.8 L 12/09/17 12/09/17 17:02 19:44 WBC RBC Hgb Hct MCV MCH MCHC RDW Plt Count MPV Neut % (Auto) Lymph % (Auto) [place] % (Auto) Eos % (Auto) Baso % (Auto) Neut # (Auto) Lymph # (Auto) [place] # (Auto) Eos # (Auto) Baso # (Auto) WBC Differential Differential Comment Sodium Potassium Chloride Carbon Dioxide Anion Gap BUN Creatinine Estimated GFR POC Glucose 441 H 461 H* Random Glucose Calcium - Procedures Left distal tibia and fibula fractures s/p hindfoot fusion Assessment and Plan - Assessment and Plan Intramedullary maria teresa fixation of the left distal tibia with hindfoot fusion POD 5 Maintain splint Strict nonweightbearing Elevation to decrease swelling Plan for discharge to rehab when bed available orthopedically cleared Follow-up with Dr. Gramajo or PA in 2 weeks
[2017-12-10 08:27] LABS: Baso # (Auto) 0.1 th/mm3 (0.0-0.2); Baso % (Auto) 1.2 % (0.0-2.0); Eos # (Auto) 0.3 th/mm3 (0.0-0.4); Eos % (Auto) 2.6 % (0.0-4.0); Hematocrit 23.9 % (35.0-46.0); Hemoglobin 7.9 gm/dL (11.6-15.3); Lymph # (Auto) 2.3 th/mm3 (1.0-4.8); Lymph % (Auto) 18.7 % (9.0-44.0); Mean Corpuscular HGB Conc 33.3 % (32.0-36.0); Mean Corpuscular Hemoglobin 31.2 pg (27.0-34.0); Mean Corpuscular Volume 93.6 fL (80.0-100.0); Mean Platelet Volume 7.2 fL (7.0-11.0); Mono # (Auto) 1.3 th/mm3 (0.0-0.9); Mono % (Auto) 10.9 % (0.0-8.0); Neut # (Auto) 8.1 th/mm3 (1.8-7.7); Neut % (Auto) 66.6 % (16.0-70.0); Platelet Count 478 th/mm3 (150-450); Red Blood Count 2.55 mil/mm3 (4.00-5.30); Red Cell Distribution Width 14.6 % (11.6-17.2); White Blood Count 12.1 th/mm3 (4.0-11.0)
[2017-12-10 08:32] LABS: Albumin 1.6 g/dL (3.4-5.0); Calcium 7.9 mg/dL (8.5-10.1); Carbon Dioxide 30.6 meq/L (21.0-32.0); Potassium 4.5 meq/L (3.5-5.1)
[2017-12-10] MEDS: Insulin Detemir Inj 1,000 UNIT/10 ML Vial SQ SCH ×2 (08:59→21:26)
[2017-12-10] MEDS: Polyethylene Glycol 3350 17 GM Packet PO SCH (09:01)
[2017-12-10] MEDS: PARoxetine Liq 20 MG/10 ML UDC PO SCH (09:03)
[2017-12-10] MEDS: hydrALAZINE 25 MG Tablet PO SCH ×3 (09:04→18:42)
[2017-12-10] MEDS: Senna/Docusate Sodium 8.6/50 MG Tablet PO SCH ×2 (09:04→21:26)
[2017-12-10] MEDS: Furosemide 40 MG Tablet PO SCH (09:04)
[2017-12-10] MEDS: Folic Acid 1 MG Tablet PO SCH (09:05)
[2017-12-10] MEDS: Calcium/Vitamin D 250/125 MG Tablet PO SCH ×3 (09:05→18:42)
[2017-12-10] MEDS: Insulin NovoLOG Aspart Correctional Sugar Inj SQ SCH ×4 (09:06→21:27)
[2017-12-10] MEDS: LORazepam 0.5 MG Tablet PO PRN (09:16)
--- NOTE | 2017-12-10 15:14 | P.PNIM ---
Subjective Interval history: 12-09 The patient was seen in during dialysis. She had no acute complaints. She said her should be visiting her today. She was willing to go to skilled rehab when a bed was available. Discussed with nursing. 12-10 SEEN SITTING IN WHEELCHAIR WANTS TO GO TO SNF VS [facility] RN AND PT AND CM WILL NEED OUTPT HD SET UP BEFORE DC Physical Exam Vital signs: Vital Signs 12/09/17 16:00 12/09/17 20:00 12/09/17 20:39 Temperature 99.2 F 98.8 F Pulse Rate 106 H 102 H Respiratory Rate 18 18 18 Blood Pressure 173/81 H 148/73 H Pulse Oximetry 96 95 12/10/17 00:02 12/10/17 01:19 12/10/17 03:04 Temperature Pulse Rate 104 H Respiratory Rate 18 18 Blood Pressure Pulse Oximetry 12/10/17 04:00 12/10/17 07:43 12/10/17 08:00 Temperature 98.9 F 98.2 F Pulse Rate 106 H 112 H 106 H Respiratory Rate 18 17 Blood Pressure 160/77 H 149/76 H Pulse Oximetry 95 94 L 12/10/17 09:00 12/10/17 12:00 Temperature 98.9 F Pulse Rate 105 H 96 H Respiratory Rate 17 Blood Pressure 144/69 H Pulse Oximetry 94 L Intake & Output 12/09/17 12/10/17 12/10/17 18:59 06:59 18:59 Intake Total 480 / 480 480 / 480 Output Total 4000 / 4000 Balance -3520 / -3520 480 / 480 Intake: Oral 480 / 480 480 / 480 Output: Hemodialysis Amount 4000 / 4000 Other: # Voids 0 Date of Last Bowel Movement 12/08/17 12/08/17 Narrative: GENERAL: Well-developed, no distress. SKIN: Focused skin assessment warm/dry. Pale. HEAD: Atraumatic. Normocephalic. EYES: Pupils equal and round. No scleral icterus. No injection or drainage. ENT: No nasal bleeding or discharge. Mucous membranes pink and moist. NECK: Trachea midline. No JVD. CARDIOVASCULAR: Regular rate and rhythm. No murmur appreciated. RESPIRATORY: No accessory muscle use. Clear to auscultation. Breath sounds equal bilaterally. GASTROINTESTINAL: Abdomen soft, non-tender, nondistended. Hepatic and splenic margins not palpable. EXTREMITIES: Left leg is bandaged. RIGHT hand is bandaged. Both tender to palpation. NEUROLOGICAL: Awake and alert. No obvious cranial nerve deficits. Motor grossly within normal limits. Normal speech. Left lower extremity: Clean dry dressings intact. Intact distal pulses. No pain with hip or knee range of motion - Urinary Catheter Management Indwelling Urethral Catheter Cath placed during this visit: yes Reason for continuing: Acute urinary retention Insertion date: 12/01/17 Insertion time: 15:34 Results - Labs CBC & Chem 7: 12/10/17 07:37 12/10/17 07:37 Laboratory Results - last 24 hr 12/09/17 12/09/17 12/10/17 17:02 19:44 07:37 WBC 12.1 H RBC 2.55 L Hgb 7.9 L Hct 23.9 L MCV 93.6 MCH 31.2 MCHC 33.3 RDW 14.6 Plt Count 478 H MPV 7.2 Neut % (Auto) 66.6 Lymph % (Auto) 18.7 [place] % (Auto) 10.9 H Eos % (Auto) 2.6 Baso % (Auto) 1.2 Neut # (Auto) 8.1 H Lymph # (Auto) 2.3 [place] # (Auto) 1.3 H Eos # (Auto) 0.3 Baso # (Auto) 0.1 WBC Differential . Differential Comment Auto diff final Sodium Potassium Chloride Carbon Dioxide Anion Gap BUN Creatinine Estimated GFR POC Glucose 441 H 461 H* Random Glucose Calcium Phosphorus Albumin 12/10/17 12/10/17 12/10/17 07:37 07:51 11:54 WBC RBC Hgb Hct MCV MCH MCHC RDW Plt Count MPV Neut % (Auto) Lymph % (Auto) [place] % (Auto) Eos % (Auto) Baso % (Auto) Neut # (Auto) Lymph # (Auto) [place] # (Auto) Eos # (Auto) Baso # (Auto) WBC Differential Differential Comment Sodium 134 L Potassium 4.5 Chloride 95 L Carbon Dioxide 30.6 Anion Gap 8 BUN 23 H Creatinine 2.65 H Estimated GFR 19 L POC Glucose 153 H 106 Random Glucose 106 Calcium 7.9 L Phosphorus 2.0 L Albumin 1.6 L - Imaging Ankle X-Ray 11/30/17 12:30 CONCLUSION: Fracture distal tibia and fibula as above Foot X-Ray 11/30/17 12:30 CONCLUSION: Fracture distal tibia and fibula as above. Ankle CT 11/30/17 13:44 CONCLUSION: 1. Fracture dislocation distal tibia and fibula as above. Ankle X-Ray 12/02/17 08:15 CONCLUSION: Reasonable alignment in fiberglass across the severely comminuted fracture of the distal tibia and fibula. Ankle X-Ray 12/05/17 00:00 CONCLUSION: Intact postsurgical changes for technique. Chest X-Ray 12/06/17 12:51 CONCLUSION: 1. There are small pleural effusions and atelectasis in the lung bases bilaterally more significant on the left than the right. 2. Dialysis catheter in satisfactory position. - Procedures Left distal tibia and fibula fractures s/p hindfoot fusion Assessment and Plan - Assessment (1) Fracture of distal end of tibia Code(s): S82.309A - Unspecified fracture of lower end of unspecified tibia, initial encounter for closed fracture Status: Acute (2) ESRD (end stage renal disease) Code(s): N18.6 - End stage renal disease Status: Chronic Plan: on // schedule- will consult nephrology. (3) Diabetes mellitus Code(s): E11.9 - Type 2 diabetes mellitus without complications Status: Chronic Plan: start on accu-check with SSI. (4) Hypertension Code(s): I10 - Essential (primary) hypertension Status: Chronic Plan: resume home meds and monitor. (5) Infection of right hand Code(s): L08.9 - Local infection of the skin and subcutaneous tissue, unspecified Status: Acute Plan: had recent surgical intervention- will obtain the medical record from [facility]. d/w 's PA ( her hand surgeon); recommended wound care, Keflex and outpatient f/u with . - Plan Ankle fracture Ortho consult appreciated. S/p surgical repair 12/05. - continue with pain control and a bowel regimen. - follow up with surgery. - rehab efforts. - incentive spirometry. - resumed Eliquis. UTI Urine culture grew yeast. - repeat UA now that Toth has been removed. - follow CBC. Body pains Started following surgery 12/05, including right shoulder, back and chest pain. EKG, CXR and trops unremarkable. Improved. - pain control. ESRD (end stage renal disease) On M/W/F HD schedule- nephrology consulted. - continue dialysis as scheduled. Last session was 12/09. Hypertension Has been fluctuating. - resumed home meds. Toprol has been increased. Added hydralazine. Infection of right hand Had recent surgical intervention. Hand surgery consult appreciated. - outpatient f/u with hand surgery. - pain control. - OT. - continue Keflex. Diabetes mellitus Using insulin pump at home. - place on accu-checks. - Levemir 20 units BID. Adjust as needed. - pt to start using insulin pump to manage blood sugar when available. DVT (deep venous thrombosis) Patient says that she was diagnosed with DVT of the right upper extremity about eight months ago. - continue Eliquis. Anemia of chronic disease Transfused with PRBC during HD. - on Epogen. - will continue to monitor. DVT prophylaxis- per ortho Code Status: FULL CODE Discussed Condition With: RN AND PT AND FAMILY AND CASE MANAGEMENT WILL NEED HD SET UP BEFORE DC Discharge Planning: PENDING ORTHO CLEARANCE AND HD SET UP (3) Diabetes mellitus Qualifiers: Diabetes mellitus type: type 1 (4) Hypertension Qualifiers: Hypertension type: essential hypertension Qualified Code(s): I10 - Essential (primary) hypertension
[2017-12-11] MEDS: Levothyroxine 88 MCG Tablet PO SCH (05:55)
[2017-12-11] MEDS: PARoxetine Liq 20 MG/10 ML UDC PO SCH (09:11)
[2017-12-11] MEDS: Furosemide 40 MG Tablet PO SCH (09:12)
[2017-12-11] MEDS: Folic Acid 1 MG Tablet PO SCH (09:12)
[2017-12-11] MEDS: Polyethylene Glycol 3350 17 GM Packet PO SCH (09:13)
[2017-12-11] MEDS: Senna/Docusate Sodium 8.6/50 MG Tablet PO SCH ×2 (09:13→20:50)
[2017-12-11] MEDS: Calcium/Vitamin D 250/125 MG Tablet PO SCH ×3 (09:13→17:58)
[2017-12-11] MEDS: Insulin NovoLOG Aspart Correctional Sugar Inj SQ SCH ×3 (09:17→20:50)
[2017-12-11] MEDS: Insulin Detemir Inj 1,000 UNIT/10 ML Vial SQ SCH ×2 (09:18→20:49)
[2017-12-11] MEDS: hydrALAZINE 25 MG Tablet PO SCH ×3 (09:19→17:58)
[2017-12-11 09:53] LABS: Baso # (Auto) 0.1 th/mm3 (0.0-0.2); Baso % (Auto) 0.9 % (0.0-2.0); Eos # (Auto) 0.2 th/mm3 (0.0-0.4); Eos % (Auto) 1.6 % (0.0-4.0); Hematocrit 23.3 % (35.0-46.0); Hemoglobin 7.6 gm/dL (11.6-15.3); Lymph # (Auto) 2.2 th/mm3 (1.0-4.8); Lymph % (Auto) 15.4 % (9.0-44.0); Mean Corpuscular HGB Conc 32.5 % (32.0-36.0); Mean Corpuscular Hemoglobin 30.6 pg (27.0-34.0); Mean Corpuscular Volume 94.2 fL (80.0-100.0); Mean Platelet Volume 7.3 fL (7.0-11.0); Mono # (Auto) 1.2 th/mm3 (0.0-0.9); Mono % (Auto) 8.7 % (0.0-8.0); Neut # (Auto) 10.3 th/mm3 (1.8-7.7); Neut % (Auto) 73.4 % (16.0-70.0); Platelet Count 595 th/mm3 (150-450); Red Blood Count 2.47 mil/mm3 (4.00-5.30); Red Cell Distribution Width 14.4 % (11.6-17.2); White Blood Count 14.1 th/mm3 (4.0-11.0)
[2017-12-11 10:20] LABS: Albumin 1.9 g/dL (3.4-5.0); Anion Gap 6 meq/L (5-15); Aspartate Aminotransferase 10 U/L (15-37); Blood Urea Nitrogen 37 mg/dL (7-18); Calcium 7.7 mg/dL (8.5-10.1); Carbon Dioxide 33.3 meq/L (21.0-32.0); Chloride 95 meq/L (98-107); Glomerular Filtration Rate 13 mL/min (>89); Glucose,Random 185 mg/dL (74-106); Magnesium 1.9 mg/dL (1.5-2.5); Potassium 3.9 meq/L (3.5-5.1); Sodium 134 meq/L (136-145)
[2017-12-11 10:30] LABS: Alanine Aminotransferase 7 U/L (10-53); Alkaline Phosphatase 153 U/L (45-117); Free T4 (Free Thyroxine) 1.05 ng/dL (0.76-1.46); Phosphorus 2.8 mg/dL (2.5-4.9); Total Protein 6.7 g/dL (6.4-8.2)
[2017-12-11 11:30] LABS: Hemoglobin A1c 7.8 % (4.3-6.0)
--- NOTE | 2017-12-11 12:29 | P.PNIM ---
Subjective Interval history: 12-09 The patient was seen in during dialysis. She had no acute complaints. She said her should be visiting her today. She was willing to go to skilled rehab when a bed was available. Discussed with nursing. 12-10 SEEN SITTING IN WHEELCHAIR WANTS TO GO TO SNF VS [facility] RN AND PT AND CM WILL NEED OUTPT HD SET UP BEFORE DC 12-11 WANTS TO GO TO SNF AWAIT CASE MANAGEMENT TO FIND SNF WILL NEED OUTPT HD SET UP BEFORE DC Physical Exam Vital signs: Vital Signs 12/10/17 16:00 12/10/17 19:49 12/10/17 20:00 Temperature 97.4 F L 98.5 F Pulse Rate 93 H 98 H Respiratory Rate 24 18 Blood Pressure 123/58 L 137/65 Pulse Oximetry 95 95 95 12/11/17 00:00 12/11/17 00:05 12/11/17 04:00 Temperature 100.2 F H 99 F Pulse Rate 97 H 98 H 99 H Respiratory Rate 18 18 Blood Pressure 137/65 153/72 H Pulse Oximetry 95 95 Intake & Output 12/10/17 12/11/17 12/11/17 18:59 06:59 18:59 Intake Total 460 / 460 Output Total Balance - 460 / 460 Weight 103.8 kg Intake: Oral 460 / 460 Output: Stool Other: # Voids 4 1 Date of Last Bowel Movement 12/10/17 Narrative: GENERAL: Well-developed, no distress. SKIN: Focused skin assessment warm/dry. Pale. HEAD: Atraumatic. Normocephalic. EYES: Pupils equal and round. No scleral icterus. No injection or drainage. ENT: No nasal bleeding or discharge. Mucous membranes pink and moist. NECK: Trachea midline. No JVD. CARDIOVASCULAR: Regular rate and rhythm. No murmur appreciated. RESPIRATORY: No accessory muscle use. Clear to auscultation. Breath sounds equal bilaterally. GASTROINTESTINAL: Abdomen soft, non-tender, nondistended. Hepatic and splenic margins not palpable. EXTREMITIES: Left leg is bandaged. RIGHT hand is bandaged. Both tender to palpation. NEUROLOGICAL: Awake and alert. No obvious cranial nerve deficits. Motor grossly within normal limits. Normal speech. Left lower extremity: Clean dry dressings intact. Intact distal pulses. No pain with hip or knee range of motion - Urinary Catheter Management Indwelling Urethral Catheter Cath placed during this visit: yes Reason for continuing: Acute urinary retention Insertion date: 12/01/17 Insertion time: 15:34 Results - Labs CBC & Chem 7: 12/11/17 08:32 12/11/17 08:32 Laboratory Results - last 24 hr 12/10/17 12/10/17 12/11/17 17:37 21:20 08:05 WBC RBC Hgb Hct MCV MCH MCHC RDW Plt Count MPV Neut % (Auto) Lymph % (Auto) [place] % (Auto) Eos % (Auto) Baso % (Auto) Neut # (Auto) Lymph # (Auto) [place] # (Auto) Eos # (Auto) Baso # (Auto) WBC Differential Differential Comment Sodium Potassium Chloride Carbon Dioxide Anion Gap BUN Creatinine Estimated GFR POC Glucose 208 H 233 H 206 H Random Glucose Calcium Phosphorus Magnesium Total Bilirubin AST ALT Alkaline Phosphatase Total Protein Albumin TSH Free T4 12/11/17 12/11/17 12/11/17 08:32 08:32 12:01 WBC 14.1 H RBC 2.47 L Hgb 7.6 L Hct 23.3 L MCV 94.2 MCH 30.6 MCHC 32.5 RDW 14.4 Plt Count 595 H MPV 7.3 Neut % (Auto) 73.4 H Lymph % (Auto) 15.4 [place] % (Auto) 8.7 H Eos % (Auto) 1.6 Baso % (Auto) 0.9 Neut # (Auto) 10.3 H Lymph # (Auto) 2.2 [place] # (Auto) 1.2 H Eos # (Auto) 0.2 Baso # (Auto) 0.1 WBC Differential . Differential Comment Auto diff final Sodium 134 L Potassium 3.9 Chloride 95 L Carbon Dioxide 33.3 H Anion Gap 6 BUN 37 H Creatinine 3.71 H Estimated GFR 13 L POC Glucose 231 H Random Glucose 185 H Calcium 7.7 L Phosphorus 2.8 Magnesium 1.9 Total Bilirubin 0.2 AST 10 L ALT 7 L Alkaline Phosphatase 153 H Total Protein 6.7 Albumin 1.9 L TSH 5.130 H Free T4 1.05 - Procedures Left distal tibia and fibula fractures s/p hindfoot fusion Assessment and Plan - Assessment (1) Fracture of distal end of tibia Code(s): S82.309A - Unspecified fracture of lower end of unspecified tibia, initial encounter for closed fracture Status: Acute (2) ESRD (end stage renal disease) Code(s): N18.6 - End stage renal disease Status: Chronic Plan: on // schedule- will consult nephrology. (3) Diabetes mellitus Code(s): E11.9 - Type 2 diabetes mellitus without complications Status: Chronic Plan: start on accu-check with SSI. (4) Hypertension Code(s): I10 - Essential (primary) hypertension Status: Chronic Plan: resume home meds and monitor. (5) Infection of right hand Code(s): L08.9 - Local infection of the skin and subcutaneous tissue, unspecified Status: Acute Plan: had recent surgical intervention- will obtain the medical record from [facility]. d/w 's PA ( her hand surgeon); recommended wound care, Keflex and outpatient f/u with . - Plan Ankle fracture Ortho consult appreciated. S/p surgical repair 12/05. - continue with pain control and a bowel regimen. - follow up with surgery. - rehab efforts. - incentive spirometry. - resumed Eliquis. UTI Urine culture grew yeast. - repeat UA now that Toth has been removed. - follow CBC. Body pains Started following surgery 12/05, including right shoulder, back and chest pain. EKG, CXR and trops unremarkable. Improved. - pain control. ESRD (end stage renal disease) On // HD schedule- nephrology consulted. - continue dialysis as scheduled. Last session was 12/09. Hypertension Has been fluctuating. - resumed home meds. Toprol has been increased. Added hydralazine. Infection of right hand Had recent surgical intervention. Hand surgery consult appreciated. - outpatient f/u with hand surgery. - pain control. - OT. - continue Keflex. Diabetes mellitus Using insulin pump at home. - place on accu-checks. - Levemir 20 units BID. Adjust as needed. - pt to start using insulin pump to manage blood sugar when available. DVT (deep venous thrombosis) Patient says that she was diagnosed with DVT of the right upper extremity about eight months ago. - continue Eliquis. Anemia of chronic disease Transfused with PRBC during HD. - on Epogen. - will continue to monitor. DVT prophylaxis- per ortho Code Status: FULL CODE Discussed Condition With: RN AND PT AND CM Discharge Planning: PENDING ORTHO CLEARANCE AND HD SET UP (3) Diabetes mellitus Qualifiers: Diabetes mellitus type: type 1 (4) Hypertension Qualifiers: Hypertension type: essential hypertension Qualified Code(s): I10 - Essential (primary) hypertension
--- NOTE | 2017-12-11 16:52 | P.PNNP ---
Subjective Interval history: Patient sitting in a chair. No verbal complaints. Sister by bedside. Physical Exam Vital signs: Vital Signs 12/10/17 19:49 12/10/17 20:00 12/11/17 00:00 Temperature 98.5 F 100.2 F H Pulse Rate 98 H 97 H Respiratory Rate 18 18 Blood Pressure 137/65 137/65 Pulse Oximetry 95 95 95 12/11/17 00:05 12/11/17 04:00 Temperature 99 F Pulse Rate 98 H 99 H Respiratory Rate 18 Blood Pressure 153/72 H Pulse Oximetry 95 Intake & Output 12/10/17 12/11/17 12/11/17 18:59 06:59 18:59 Intake Total 460 / 460 Output Total Balance - 460 / 460 Weight 103.8 kg Intake: Oral 460 / 460 Output: Stool Other: # Voids 4 1 Date of Last Bowel Movement 12/10/17 12/11/17 # Bowel Movements 1 - Urinary Catheter Management Indwelling Urethral Catheter Cath placed during this visit: yes Reason for continuing: Acute urinary retention Insertion date: 12/01/17 Insertion time: 15:34 Assessment and Plan - Assessment (1) ESRD (end stage renal disease) Code(s): N18.6 - End stage renal disease Status: Chronic Plan: Apparently secondary to diabetic nephropathy. Continue typical MWF schedule with further fluid removal. CM appreciated in assisting transition to outpatient HD---appears she has an arranged chair time of 3pm at [facility] in [place] for MWF. To f/u with regular outpatient core filer in [facility] post-discharge from rehab. OK to be discharged after HD today if cleared by other specialties and primary. Medication should be adjusted for the patient's end-stage renal disease when indicated. Avoid gadolinium. (2) Anemia of renal disease Code(s): D63.1 - Anemia in chronic kidney disease Status: Acute Plan: Continue Epogen and Venofer as ordered (3) Hypertension Code(s): I10 - Essential (primary) hypertension Status: Chronic Qualifiers: Hypertension type: essential hypertension Qualified Code(s): I10 - Essential (primary) hypertension
[2017-12-12 01:03] VITALS: RESP 18
[2017-12-12] MEDS: Levothyroxine 88 MCG Tablet PO SCH (06:05)
[2017-12-12] MEDS: Furosemide 40 MG Tablet PO SCH (08:25)
[2017-12-12] MEDS: Senna/Docusate Sodium 8.6/50 MG Tablet PO SCH (08:26)
[2017-12-12] MEDS: Folic Acid 1 MG Tablet PO SCH (08:26)
[2017-12-12] MEDS: Calcium/Vitamin D 250/125 MG Tablet PO SCH ×2 (08:26→13:15)
[2017-12-12] MEDS: hydrALAZINE 25 MG Tablet PO SCH ×2 (08:26→13:15)
[2017-12-12 10:18] VITALS: BP 133/62; PULSE 98; TEMP 98.5; O2SAT 94
[2017-12-12] MEDS: Polyethylene Glycol 3350 17 GM Packet PO SCH (10:36)
[2017-12-12] MEDS: Insulin NovoLOG Aspart Correctional Sugar Inj SQ SCH ×2 (10:36→13:17)
[2017-12-12] MEDS: Insulin Detemir Inj 1,000 UNIT/10 ML Vial SQ SCH (10:36)
[2017-12-12] MEDS: PARoxetine Liq 20 MG/10 ML UDC PO SCH (10:37)
--- NOTE | 2017-12-12 12:19 | P.PNNP ---
Subjective Interval history: Pt seen during HD today UF at 3L and tolerating well. Physical Exam Vital signs: Vital Signs 12/11/17 16:00 12/11/17 19:42 12/11/17 20:00 Temperature 97.9 F 97.8 F Pulse Rate 94 H 85 Respiratory Rate 18 19 Blood Pressure 127/68 94/51 L Pulse Oximetry 97 97 94 L 12/11/17 20:15 12/12/17 00:00 12/12/17 04:00 Temperature 98.5 F 99.1 F Pulse Rate 86 97 H 99 H Respiratory Rate 18 18 Blood Pressure 155/66 H 145/68 H Pulse Oximetry 95 93 L 12/12/17 04:45 12/12/17 08:00 Temperature 98.5 F Pulse Rate 107 H 98 H Respiratory Rate 18 Blood Pressure 133/62 Pulse Oximetry 94 L Intake & Output 12/11/17 12/12/17 12/12/17 18:59 06:59 18:59 Intake Total 850 / 850 Balance 850 / 850 Weight 104 kg Intake: Oral 850 / 850 Other: # Voids 1 1 Date of Last Bowel Movement 12/11/17 12/11/17 12/11/17 # Bowel Movements 1 - Constitutional no acute distress - Routine HEENT Exam Head: Present: normocephalic - Routine Neck Exam Present: supple - Routine Respiratory Exam Present: CTA bilaterally - Routine Cardiovascular Exam Present: RRR, S1, S2 - Routine Extremities Exam Present: edema (facial) - Routine Neurological Exam Present: alert, oriented X3 - Routine Psychiatric Exam Present: normal affect, normal thought process - Urinary Catheter Management Indwelling Urethral Catheter Cath placed during this visit: yes Reason for continuing: Acute urinary retention Insertion date: 12/01/17 Insertion time: 15:34 Assessment and Plan - Assessment (1) ESRD (end stage renal disease) Code(s): N18.6 - End stage renal disease Status: Chronic Plan: Apparently secondary to diabetic nephropathy. Seen during HD today and tolerating well. Continue MWF schedule CM appreciated in assisting transition to outpatient HD---appears she has an arranged chair time of 3pm at [facility] in [place] for MWF. To f/u with regular outpatient crisis specialist in [facility] post-discharge from rehab. OK to be discharged after HD today if cleared by other specialties and primary. Medication should be adjusted for the patient's end-stage renal disease when indicated. Avoid gadolinium. (2) Anemia of renal disease Code(s): D63.1 - Anemia in chronic kidney disease Status: Acute Plan: Continue Epogen and Venofer as ordered (3) Hypertension Code(s): I10 - Essential (primary) hypertension Status: Chronic Qualifiers: Hypertension type: essential hypertension Qualified Code(s): I10 - Essential (primary) hypertension Plan: Improved. Continue on current regimen
[2017-12-12] MEDS: Heparin 10,000 UNITS/10 ML Vial (for IV use) OTHER PRN (12:30)
--- NOTE | 2017-12-12 12:59 | P.DIET ---
Nutritional Evaluation Type of nutrition evaluation: follow-up Nutrition consult regarding: Diet Evaluation Nutrition screening: Weight Loss > 10 lbs (wt. loss due to ESRD and poor PO intake) Objective - Diagnosis Fall. PMH see H&P - Objective % IBW: 140 Body Weight Used for Calculations: Upper end of IBW Energy Needs - Lower Range (kCal/kg): 28 Energy Needs - Upper Range (kCal/kg): 32 Lower Limit kCal/kg (kCals): 1,708 Upper Limit kCal/kg (kCals): 1,952 Lower Limit Protein Factor (Grams per Kg): 1 Upper Limit Protein Factor (Grams per Kg): 1.5 Lower Protein Needs (Protein): 61 Upper Protein Needs (Protein): 92 Dietitian Reviewed in Medical Record: Current diet, Curent medications, Intake & Output, Labs Diet Order: 1800ADA Oral Diet Intake Amount: Good 75-90% Objective Comments: PMH of diabetes mellitus, hypertension and subsequently end-stage renal disease secondary to diabetic nephropathy. Assessment Assessment: Follow up for pt with recent unintended wt loss. Pt is currently eating 75-100% of her meals, po intake is adequate to meet pt's nutritional requirements. Please consult dietitian if needed.
[2017-12-12] MEDS: LORazepam 0.5 MG Tablet PO PRN (13:15)
--- NOTE | 2017-12-12 14:27 | P.DS ---
Date of admission: 11/30/17 13:52 Primary care physician: No Primary Care Physician Attending physician on discharge: Leatha Negrete Anticipated date of discharge: 12/09/17 Brief History from admission: patient is a 52 y/o female with history of ESRD-on HD, hypertension, diabetes, neuropathy who presented to ER after she fell earlier this morning. she was just released from [facility] after she was treated with right hand infection. she says that this morning when she was trying to go to bathroom she lost her balance and fell- after which she started to have some pain to the left ankle. she denies any syncopal episodes or any prodromal symptoms before the fall.she's on // schedule for her HD. DS: Diagnosis - Discharge Diagnosis (1) ESRD (end stage renal disease) Status: Acute (2) Ankle fracture Status: Acute (3) Infection of right hand Status: Acute (4) DVT (deep venous thrombosis) Status: Chronic DS: Medications - Discharge Medications Prescriptions: cephalexin 500 mg PO Q12HR 4 Days cap hydrocodone-acetaminophen [[place]] 1 tab PO Q4H PRN #40 tab PRN Reason: pain 6-10 lorazepam 0.5 mg PO Q8H PRN #8 tab PRN Reason: Anxiety DS: Summary Hospital Course: 52-year-old female with a past medical history of end-stage renal disease on hemodialysis, HTN, DM, neuropathy and right hand infection with fall resulting in right ankle fracture. Patient was admitted and is status post intramedullary maria teresa fixation of left distal tibia with hindfoot fusion on 12/06. Patient was seen by road mixer operator during her hospitalization and continued on hemodialysis schedule. Recent right hand surgery, seen and evaluated by hand surgery . Patient was status post [address] Sue on the right hand due to possible compartment syndrome and abscess. Hand surgery recommended follow-up with Dr. Sue once discharged. Patient will also be discharged with p.o. Keflex. Patient reports significant improvement in her right hand finger colors and edema, ongoing pain. Patient is seen and examined resting in bed eating lunch, just got back from dialysis and tolerated well. Patient denies any fevers, chills, nausea, vomiting, diarrhea, cough, shortness of breath or chest pain. She reports ongoing right hand and fifth finger pain especially with movement. Dressing pulled back, patient reports finger is looking much better and color is greatly improved. Discussed with patient discharged to [facility] and rehab. Patient would like to discuss with her sister as well as case management, reports she was unaware of discharge set up. Spoke with nurse reports patient has been intermittently refusing pain medication. - Time Spent with Patient Total time spent providing and/or coordinating discharge services: Less than 30 minutes - Quality: VTE Deep Vein Thrombosis/Pulmonary Embolism Present on Admission: No Exam Vital signs: Vital Signs 12/11/17 16:00 12/11/17 19:42 12/11/17 20:00 Temperature 36.6 C 36.6 C Pulse Rate 94 H 85 Respiratory Rate 18 19 Blood Pressure 127/68 94/51 L Pulse Oximetry 97 97 94 L 12/11/17 20:15 12/12/17 00:00 12/12/17 04:00 Temperature 36.9 C 37.3 C Pulse Rate 86 97 H 99 H Respiratory Rate 18 18 Blood Pressure 155/66 H 145/68 H Pulse Oximetry 95 93 L 12/12/17 04:45 12/12/17 08:00 Temperature 36.9 C Pulse Rate 107 H 98 H Respiratory Rate 18 Blood Pressure 133/62 Pulse Oximetry 94 L Intake & Output 12/11/17 12/12/17 12/12/17 18:59 06:59 18:59 Intake Total 850 / 850 Output Total 3000 / 3000 Balance 850 / 850 -3000 / -3000 Weight 104 kg Intake: Oral 850 / 850 Output: Hemodialysis Amount 3000 / 3000 Other: # Voids 1 1 Date of Last Bowel Movement 12/11/17 12/11/17 12/11/17 # Bowel Movements 1 Narrative: GENERAL: Well-developed female sitting up in bed eating. In no acute distress. SKIN: Warm, dry, pale. HEAD: Atraumatic. Normocephalic. EYES: Pupils equal and round. No scleral icterus. No injection or drainage. ENT: No nasal bleeding or discharge. Mucous membranes pink and moist. NECK: Trachea midline. No JVD. CARDIOVASCULAR: Regular rate and rhythm. No murmur appreciated. RESPIRATORY: No accessory muscle use. Clear to auscultation. Breath sounds equal bilaterally. GASTROINTESTINAL: Abdomen soft, non-tender, nondistended. + Bowel sounds. EXTREMITIES: Left leg with dry and intact Tone wrap, + toe movement, capillary refill <3 seconds, positive sensation. RIGHT forearm with pink granulated tissue. Right hand trace edema throughout all fingers. Fifth digit with palmar aspect incision well approximated with suturing noted, no visible drainage. Tip of fifth digit black and necrotic, tenderness with limited ROM due to pain. +radial pulse. NEUROLOGICAL: Awake and alert. No obvious cranial nerve deficits. Motor grossly within normal limits. Normal speech. Results Procedures completed during hospitalization: Left distal tibia and fibula fractures s/p hindfoot fusion Labs on day of discharge: Labs from last 24 hours 12/12/17 12/12/17 12/11/17 12:33 08:24 20:43 POC Glucose 177 H 216 H 205 H 12/11/17 17:38 POC Glucose 81 - Impressions ITS Impressions Foot X-Ray 11/30/17 12:30 CONCLUSION: Fracture distal tibia and fibula as above. Ankle CT 11/30/17 13:44 CONCLUSION: 1. Fracture dislocation distal tibia and fibula as above. Ankle X-Ray 12/05/17 00:00 CONCLUSION: Intact postsurgical changes for technique. Chest X-Ray 12/06/17 12:51 CONCLUSION: 1. There are small pleural effusions and atelectasis in the lung bases bilaterally more significant on the left than the right. 2. Dialysis catheter in satisfactory position. Discharge Plan - Discharge Disposition Patient Disposition: Discharge to SNF - Discharge Condition Condition: Stable - Discharge Order Discharge Orders: Discharge Order (Routine); Ordered 12/09/17 Ordered By: Nacho Serna Hand Surgery Clear for Discharge (Routine); Ordered 12/02/17 Ordered By: Elena Wheatley Orthopedic Clear for Discharge (Routine); Ordered 12/07/17 Ordered By: Ramon Cagle - Discharge Details Anticipated Discharge Date: 12/12/17 - Physicians Team Primary Care Provider: Primary Care Physici,No Attending Provider: Leatha Negrete Other Providers: Liliana Linda MD ; Sander Monsivais MD ; Shayne Hughes MD ; Elena Wheatley MD ; [facility],[place]
== END 2017-12-12 16:43 ==
LOC: PHED 12:11 → PHEDA 13:52 → N06 23:20
PROVIDERS: ADMIT Family Medicine; ATTEND Family Medicine
PROC: ORIFANK (2017-12-05 08:41)

== ENCOUNTER 2018-01-17 15:07 | Inpatient (IN) ==
[2018-01-17 15:51] LABS: ABG Base Excess -1.6 mmol/L (-2-2); ABG PCO2 35 mmHg (38-42); ABG PO2 111 mmHG (61-120)
[2018-01-17] MEDS ORDERED: Acetaminophen 325 MG Tablet PO PRN (16:24)
[2018-01-17] MEDS ORDERED: Bisacodyl 10 MG Supp RECTAL PRN (16:24)
[2018-01-17] MEDS ORDERED: Insulin Regular (For Infusion) 100 UNIT in Sodium Chlor 0.9% Inj 99 ML IV.CONT PRN ×2 (16:27→16:51)
[2018-01-17] MEDS ORDERED: Dextrose 50% in Water 50 ML Vial IV.PUSH PRN ×2 (16:27→16:51)
--- NOTE | 2018-01-17 16:38 | P.HPCC ---
History of Present Illness Primary Care Physician: UNKNOWN Chief Complaint: DKA History of Present Illness: Patient is a 52 year old female with end-stage renal disease on hemodialysis, recent left tibial fracture, Diabetes, Diabetic neuropathy, Footdrop, Gastroparesis, Hypertension who was admitted to [facility] on . She was admitted to [place] initially on 11/30/2017 after sustaining a fall and left distal tibial fracture. She underwent intramedullary nailing on 12/05 discharged. Patient was readmitted to [facility] on 12/16/2017 with anemia and right hand wound infection. She was eventually discharged to [facility] on 12/25/2017, and was being medically managed by Dr. Lindsey. Apparently for the last few days patient had been noncompliant with insulin. She refused her scheduled Levemir today a.m. being afraid of hypoglycemia during dialysis. After this patient had been having sustained hyperglycemia with blood sugar in the 300s and she developed nausea and vomiting. Suspecting DKA a chemistry panel was ordered which came back with sodium 129 chloride 87 anion gap was 18 blood sugar was 397 beta hydroxybutyrate was 2.21. ABG did not show significant acidosis however her labs were suspicious for early DKA along with the clinical presentation. Patient was transferred to the ICU and I immediately evaluated her. She appears lethargic but alert awake and responds to questions. Her chest x-ray shows left lower lobe consolidation and cefepime had been started along with IV Vanc. Unable to use DKA protocol with IV fluids due to end-stage renal disease. I have started her on ICU insulin algorithm 1 protocol - Diagnosis (1) DKA (diabetic ketoacidoses) (2) Hypertensive urgency (3) Ankle fracture (4) ESRD (end stage renal disease) (5) Diabetes mellitus (6) Hypertension (7) Infection of right hand (8) DVT (deep venous thrombosis) Inpatient Certification: I certify that the inpatient services were ordered in accordance with Medicare regulations governing the order. This includes certification that hospital inpatient services are reasonable and necessary and in the case of services not specified as inpatient-only under 42 CFR 419.22(n), that they are appropriately provided as inpatient services in accordance to with the 2-midnight benchmark under 43 CFR 412.3(e) Estimated Total Length of Stay (Days): 3 Plans for Post Hospital Care: Not yet determined PMFSH - History History Provided By: Patient - Medical History Medical History: Medical History (Last Updated 12/24/17 @ 11:52 by Leida Ponce MD) Anxiety Carpal tunnel syndrome, right upper limb Complication of vascular access for dialysis Depression Diabetes Diabetic neuropathy End-stage renal disease on hemodialysis Footdrop Gastroparesis Hypertension Impaired mobility and activities of daily living Insulin pump in place Renal failure Vascular dialysis catheter in place - Surgical History Surgical History: Surgical History (Last Reviewed 12/12/17 @ 09:05 by Ana Gee) Status post debridement - Tobacco History Second Hand Smoke Exposure: No Smoking Status: Never smoker - Alcohol History How Often Do You Have a Drink Containing Alcohol: Never - Substance Use History Substance History: No History of Abuse Medications and Allergies Active Medications: Active Medications Acetaminophen (Tylenol) 650 mg PO Q6H PRN PRN Reason: PAIN 1-10 AND/OR FEVER >101F Al Hydroxide/Mg Hydroxide (Milk Of Magnesia Liq) 30 ml PO Q12H PRN PRN Reason: Mild Constipation Albuterol (Duoneb Neb (Prn)) 1 ampul NEB Q2HR NEB PRN PRN Reason: WHEEZING Apixaban (Eliquis) 2.5 mg PO BID CHAVO Bisacodyl (Dulcolax Supp) 10 mg RECTAL DAILY PRN PRN Reason: SEVERE CONSITIPATION Chlorhexidine Gluconate (Chlorhexidine 2% Cloth) 3 pack TOPICAL DAILY@0400 CHAVO Stop: 01/23/18 03:59 Chlorhexidine Gluconate (Chlorhexidine 2% Cloth) 3 pack TOPICAL DAILY@0400 PRN PRN Reason: Extra cloth needed Stop: 01/23/18 03:59 Dextrose (D50w Vial) 50 ml IV.PUSH UNSCH PRN PRN Reason: PER HYPOGLYCEMIA PROTOCOL Famotidine (Pepcid) 10 mg PO BID CHAVO Hydralazine HCl (Apresoline) 25 mg PO QID [facility] Insulin Human Regular 100 unit (/ Sodium Chloride) 100 mls @ 0 mls/hr IV.CONT TITRATE PRN; Protocol PRN Reason: See protocol Lactulose (Lactulose Liq) 30 ml PO DAILY PRN PRN Reason: SEVERE CONSITIPATION Levothyroxine Sodium (Synthroid) 100 mcg PO DAILY CHAVO Nifedipine (Procardia Xl) 90 mg PO DAILY CHAVO Ondansetron HCl (Zofran Odt) 4 mg PO TID PRN PRN Reason: Nausea And Vomiting Senna/Docusate Sodium (Florencia-Colace) 1 tab PO BID CHAVO Sennosides (Senokot) 17.2 mg PO Q12H PRN PRN Reason: Moderate Constipation Sodium Chloride (Ns Flush) 2 ml IV.FLUSH BID CHAVO Sodium Chloride (Ns Flush) 2 ml IV.FLUSH PRN PRN PRN Reason: FLUSH AFTER USING IV ACCESS Allergies Allergy/AdvReac Type Severity Reaction Status Date / Time barium sulfate Allergy Severe Anaphylaxis Verified 11/30/17 12:28 ciprofloxacin [From Cipro] Allergy Severe Anaphylaxis Verified 11/30/17 12:28 Latex, Natural Rubber Allergy Severe Anaphylaxis Verified 11/30/17 12:28 metoclopramide [From Reglan] Allergy Severe Anaphylaxis Verified 11/30/17 12:28 Penicillins Allergy Severe Anaphylaxis Verified 11/30/17 12:28 vancomycin Allergy Severe Anaphylaxis Verified 11/30/17 12:28 onion Allergy Vomiting Verified 12/24/17 13:56 Home Medications Medication Instructions Recorded Confirmed Type apixaban [Eliquis] 2.5 mg PO BID 11/30/17 12/24/17 History folic acid 1 mg PO DAILY 11/30/17 12/24/17 History levothyroxine [Synthroid] 100 mcg PO DAILY 11/30/17 12/24/17 History ondansetron [Zofran ODT] 4 mg PO TID PRN 11/30/17 12/24/17 History pantoprazole [Protonix] 40 mg PO BID 11/30/17 12/24/17 History paroxetine HCl 20 mg PO DAILY 11/30/17 12/24/17 History acetaminophen [Tylenol] 650 mg PO Q4H PRN 12/24/17 12/24/17 History ascorbic acid (vitamin C) 500 mg PO BID 12/24/17 12/24/17 History balsam cj-castor oil 1 applic TOPICAL BID 12/24/17 12/24/17 History buspirone 5 mg PO TID 12/24/17 12/24/17 History calcium carbonate-vitamin D3 1 tab PO BID 12/24/17 12/24/17 History [Oyster Shell Calcium-Vit D3] cefuroxime axetil 250 mg PO Q12H 12/24/17 12/24/17 History diphenhydramine HCl [Benadryl] 25 mg PO TID PRN 12/24/17 12/24/17 History furosemide [Lasix] 20 mg PO BID 12/24/17 12/24/17 History hydralazine 25 mg PO QID 12/24/17 12/24/17 History hyoscyamine sulfate 0.125 mg PO QID PRN 12/24/17 12/24/17 History insulin glargine [Lantus U-100 20 unit SUB-Q DAILY 12/24/17 12/24/17 History Insulin] lisinopril 10 mg PO DAILY 12/24/17 12/24/17 History metoprolol tartrate 50 mg PO BID 12/24/17 12/24/17 History nifedipine 90 mg PO DAILY 12/24/17 12/24/17 History silver sulfadiazine 1 applic TOPICAL DAILY 12/24/17 12/24/17 History zinc sulfate 220 mg PO DAILY 12/24/17 12/24/17 History Exam Vital signs: Vital Signs 01/17/18 16:19 Pulse Oximetry 98 Narrative: - Constitutional Lying in bed appears to be in moderate distress due to nausea and vomiting - Routine HEENT Exam Head: normocephalic, atraumatic. Face is puffy Eye: Pupils are equal ENT: Mucous membrane moist airway patent - Routine Neck Exam supple, full ROM. RIJ HD catheter in place - Routine Respiratory Exam No crackles, no diminished air movement - Routine Cardiovascular Exam RRR, S1, S2. Hypotensive with systolic blood pressure in 190s - Routine Abdominal Exam Present: soft, normoactive bowel sounds - Routine Extremities Exam Right hand status post wound debridement. Left lower leg in orthopedic cast - Routine Neurological Exam Present: alert, oriented X3, normal speech. No focal deficits Septic Shock Reassessment Septic shock perfusion: reassessment completed Caprini VTE Risk Assessment Caprini VTE Risk Assessment: Moderate/High Risk (score >= 2) Caprini Risk Assessment Model: Point Value = 1 Point Value = 2 Point Value = 3 Point Value = 5 Age 41-60 Minor surgery BMI > 25 kg/m2 Swollen legs Varicose veins or History of unexplained or recurrent spontaneous Oral contraceptives or hormone replacement Sepsis (< 1 month) Serious lung disease, including pneumonia (< 1 month) Abnormal pulmonary function Acute myocardial infarction Congestive heart failure (< 1 month) History of inflammatory bowel disease Medical patient at bed rest Age 61-74 Arthroscopic surgery Major open surgery (> 45 min) Laparoscopic surgery (> 45 min) Malignancy Confined to bed (> 72 hours) Immobilizing plaster cast Central venous access Age >= 75 History of VTE Family history of VTE Factor V Leiden Prothrombin [id number] Lupus anticoagulant Anticardiolipin antibodies Elevated serum homocysteine Heparin-induced thrombocytopenia Other congenital or acquired thrombophilia Stroke (< 1 month) Elective arthroplasty Hip, pelvis, or leg fracture Acute spinal cord injury (< 1 month) Prophylaxis Regimen: Total Risk Factor Score Risk Level Prophylaxis Regimen 0-1 Low Early ambulation 2 Moderate Order ONE of the following: *Sequential Compression Device (SCD) *Heparin 5000 units SQ BID 3-4 Higher Order ONE of the following medications: *Heparin 5000 units SQ TID *Enoxaparin/Lovenox 40 mg SQ daily (WT < 150 kg, CrCl > 30 mL/min) *Enoxaparin/Lovenox 30 mg SQ daily (WT < 150 kg, CrCl > 10-29 mL/min) *Enoxaparin/Lovenox 30 mg SQ BID (WT < 150 kg, CrCl > 30 mL/min) AND/OR *Sequential Compression Device (SCD) 5 or more Highest Order ONE of the following medications: *Heparin 5000 units SQ TID (Preferred with Epidurals) *Enoxaparin/Lovenox 40 mg SQ daily (WT < 150 kg, CrCl > 30 mL/min) *Enoxaparin/Lovenox 30 mg SQ daily (WT < 150 kg, CrCl > 10-29 mL/min) *Enoxaparin/Lovenox 30 mg SQ BID (WT < 150 kg, CrCl > 30 mL/min) AND *Sequential Compression Device (SCD) Assessment and Plan - Problem List (1) DKA (diabetic ketoacidoses) Code(s): E13.10 - Other specified diabetes mellitus with ketoacidosis without coma Status: Acute (2) Hypertensive urgency Code(s): I16.0 - Hypertensive urgency Status: Acute (3) Ankle fracture Code(s): S82.899A - Other fracture of unspecified lower leg, initial encounter for closed fracture Status: Acute (4) ESRD (end stage renal disease) Code(s): N18.6 - End stage renal disease Status: Chronic (5) Diabetes mellitus Code(s): E11.9 - Type 2 diabetes mellitus without complications Status: Chronic (6) Hypertension Code(s): I10 - Essential (primary) hypertension Status: Chronic (7) Infection of right hand Code(s): L08.9 - Local infection of the skin and subcutaneous tissue, unspecified Status: Chronic (8) DVT (deep venous thrombosis) Code(s): I82.409 - Acute embolism and thrombosis of unspecified deep veins of unspecified lower extremity Status: Chronic - Assessment and Plan Plan: NEURO: Metabolic encephalopathy -Minimize sedation -Mild encephalopathy and lethargy most likely secondary to DKA and possible sepsis RESP: Respiratory insufficiency Probable healthcare associated pneumonia -DuoNeb every 6 hours scheduled and as needed -Sputum culture -Empiric cefepime and 1 dose of vancomycin CV: Hypertensive urgency Metabolic acidosis -Continue previous medications including hydralazine, nifedipine and beta blockers -Labetalol as needed for SBP more than 170 -Her blood pressure should improve with hemodialysis which she is getting now GI: -N.p.o until nausea vomiting is improved., IV famotidine : End-stage renal disease on hemodialysis -Monitor renal function closely. -Ready to get hemodialysis now ID: Probable healthcare associated pneumonia Recent right hand infection -Antibiotics with cefepime renally dosed, vancomycin 1 g IV 1 -Blood and sputum cultures HEME: Right upper extremity DVT -Monitor CBC, coags -Continue apixaban 2.5 twice daily ENDO: Hypocalcemia Early DKA -Give calcium gluconate 1 g IV 1 -Hold subcu insulin, start IV insulin infusion algorithm 1 -Trend beta hydroxybutyrate PROPH: -Right lower extremity SCDs. Apixaban/famotidine LINES: -Utilize peripheral IVs, central line if needed CC time 42 MIN min (3) Ankle fracture Qualifiers: Laterality: left (5) Diabetes mellitus Qualifiers: Diabetes mellitus type: type 2 Diabetes mellitus long term care pharmacist insulin use: with long term care pharmacist use Diabetes mellitus complication status: with skin complications Diabetes mellitus complication detail: with other skin complication Qualified Code(s): E11.628 - Type 2 diabetes mellitus with other skin complications; Z79.4 - long term care pharmacist (current) use of insulin (6) Hypertension Qualifiers: Hypertension type: essential hypertension Qualified Code(s): I10 - Essential (primary) hypertension (8) DVT (deep venous thrombosis) Qualifiers: DVT location: upper extremity Laterality: right
--- NOTE | 2018-01-17 16:43 | XR ---
EXAM DATE: 01/17/2018 4:32 PM EDT AGE/SEX: 52 years / Female INDICATIONS: Shortness of breath. CLINICAL DATA: This is the patient's initial encounter. Patient reports that signs and symptoms have been present for 1 day and indicates a pain score of 0/10. MEDICAL/SURGICAL HISTORY: . Diabetes. Hypertension. Renal failure. . Left foot ORIF. COMPARISON: C, CHEST 1V SINGLE AP, 12/06/2017. . FINDINGS: Right jugular catheter tip overlies the expected location of the right atrium. There is consolidation of the left lower lobe. Left effusion suspected. Right lung is clear. CONCLUSION: Left lower lobe airspace disease and probable left effusion. Electronically signed by: Jacob Umanzor MD 01/17/2018 4:41 PM EDT
[2018-01-17] MEDS ORDERED: Vancomycin Inj 1,000 MG in Sodium Chlor 0.9% Inj 250 ML IV.SIG ONE (17:33)
--- NOTE | 2018-01-17 17:45 | P.PNGI ---
Subjective Interval history: Patient awake and alert laying in bed. Pt reports nausea and vomiting since 0800 this am with inability to tolerate medications or po intake today. <Debbie Velazquez - Last Filed: 01/17/18 18:25> Physical Exam Vital signs: Vital Signs 01/17/18 16:19 Pulse Oximetry 98 - Constitutional mild distress - Routine HEENT Exam Head: Present: normocephalic - Routine Respiratory Exam Present: CTA bilaterally. Absent: respiratory distress - Routine Cardiovascular Exam Present: S1, S2 - Routine Abdominal Exam Present: soft, normoactive bowel sounds, tenderness Comments: Abdomen round and mildly distended - Routine Skin Exam Present: dry, warm - Routine Neurological Exam Present: alert, oriented X3 - Routine Psychiatric Exam Present: normal affect <Debbie Velazquez - Last Filed: 01/17/18 18:25> Vital signs: Vital Signs 01/17/18 16:19 01/17/18 17:00 Temperature 98.5 F Pulse Rate 93 H Respiratory Rate 18 Blood Pressure 190/92 H Pulse Oximetry 98 99 Intake & Output 01/17/18 01/17/18 01/18/18 06:59 18:59 06:59 Output Total 5000 / 5000 Balance -5000 / -5000 Output: Hemodialysis Amount 5000 / 5000 Other: Date of Last Bowel Movement 01/16/18 <Ishmael Gunn - Last Filed: 01/17/18 20:19> Results - Labs Laboratory Results - last 24 hr 01/17/18 01/17/18 01/17/18 15:42 16:15 16:40 Puncture Site Left radial Patient Temperature 98.6 O2 Saturation 96 ABG pH 7.42 ABG pCO2 35 L ABG pO2 111 ABG HCO3 22 ABG O2 Content 15.8 ABG Base Excess -1.6 ABG Methemoglobin 1.3 Clement Test Present Hemoglobin 11.7 L Carboxyhemoglobin 1.6 O2 Delivery Device Nasal cannula Liter Flow 2.00 Critical Value No POC Glucose 383 H Troponin I 0.20 H - Imaging Impressions Chest X-Ray 01/17/18 16:02 CONCLUSION: Left lower lobe airspace disease and probable left effusion. <Debbie Velazquez - Last Filed: 01/17/18 18:25> - Labs Laboratory Results - last 24 hr 01/17/18 01/17/18 01/17/18 15:42 16:15 16:40 Puncture Site Left radial Patient Temperature 98.6 O2 Saturation 96 ABG pH 7.42 ABG pCO2 35 L ABG pO2 111 ABG HCO3 22 ABG O2 Content 15.8 ABG Base Excess -1.6 ABG Methemoglobin 1.3 Clement Test Present Hemoglobin 11.7 L Carboxyhemoglobin 1.6 O2 Delivery Device Nasal cannula Liter Flow 2.00 Critical Value No POC Glucose 383 H Lactic Acid Troponin I 0.20 H 01/17/18 01/17/18 18:01 18:07 Puncture Site Patient Temperature O2 Saturation ABG pH ABG pCO2 ABG pO2 ABG HCO3 ABG O2 Content ABG Base Excess ABG Methemoglobin Clement Test Hemoglobin Carboxyhemoglobin O2 Delivery Device Liter Flow Critical Value POC Glucose 261 H Lactic Acid 1.1 Troponin I - Imaging Impressions Chest X-Ray 01/17/18 16:02 CONCLUSION: Left lower lobe airspace disease and probable left effusion. <Ishmael Gunn - Last Filed: 01/17/18 20:19> Assessment and Plan - Plan Known hx of gastroparesis/acute flare- known hx of gastroparesis, s/p gastric pace maker in [facility] 5 yrs ago who's GI dr is Dr. Jimenez, Pt endorses allergies to Reglan. At home, she is on EES and Zofran. Pt states she had a major flare in July of this yr, for which she under went EGD/colonoscopy with Dr. Jimenez with negative findings by report. Pt states she has flares of this. Endorses N/V started Sat. night which continued to Tuesday noon. She is doing good today, able to tolerate diet okay, no more nausea, vomiting or abd pain. Denies diarrhea, melena or hematochezia - Anemia- likely anemia of chronic dz, no bleeding, s/p negative EGD/ colonoscopy with Dr. Jimenez in July - recent left distal tibia fracture for which she underwent IM nail fixation . - hx of DM, ESRD per attending 01/17/18- Patient laying on her side in bed complaining of persistent nausea and vomiting onset this am 0800. Patient reports unable to tolerate po meds or intake today. Patient has Zofran 4 mg po tid prn ordered. Pt states last BM 2 days ago soft and formed. Per nurse pt noted to have uncontrolled hyperglycemia along with elevated blood pressure. Pt being transferred to monitored unit at this time. GI will continue to monitor symptoms. Patient has history of gastroparesis, onset approximately 5 years ago and has been uncontrolled at times requiring erythromycin. Will evaluate and consider medications and procedures as needed after patient is stabilized. A daptomycin added to her regimen Plan: - Diet as tolerated - daptomycin per attending - Antiemetics as needed - Pepcid -Add Zofran IV - Monitor patient's labs and symptoms - Supportive care - Further recommendations to follow, will continue to follow patient if needed during her acute care transition Patient seen per myself and Dr. Gunn, note is written on his behalf. <Debbie Velazquez - Last Filed: 01/17/18 18:25> - Plan Seen and examined with [employer], transferred to icu for worsening blood sugars and N /V. States symptoms similar to her previous attacks of gastroparesis which respond to iv Erythromicin and morphine. Repeat CT if abdominal pain persists. The exam, history, and the medical decision-making described in the above note were completed with the assistance of the mid-level provider. I reviewed and agree with the findings presented. I attest that I had a [id number] encounter with the patient on the same day, and personally performed and documented my assessment and findings in the medical record. <Ishmael Gunn - Last Filed: 01/17/18 20:19>
[2018-01-17] MEDS ORDERED: Labetalol HCl Inj 100 MG/20 ML Vial IV.PUSH PRN (17:49)
[2018-01-17] MEDS: Morphine Sulfate Inj 2 MG/ML Vial IV.PUSH PRN (18:36)
[2018-01-17] MEDS ORDERED: DAPTOMYCIN IV.SIG ONE (20:00)
[2018-01-17] MEDS ORDERED: SODIUM CHLOR 0.9% IV.SIG ONE (20:00)
[2018-01-17] MEDS: hydrALAZINE 25 MG Tablet PO SCH ×2 (20:02→20:07)
[2018-01-17] MEDS: Senna/Docusate Sodium 8.6/50 MG Tablet PO SCH (20:06)
[2018-01-17] MEDS: Metoprolol Tartrate 50 MG Tablet PO SCH (20:06)
[2018-01-17] MEDS: Famotidine 20 MG Tablet PO SCH (20:06)
[2018-01-17] MEDS ORDERED: Heparin - SQ 10,000 UNITS/ML Vial SQ SCH ×2 (21:00)
[2018-01-17 21:11] LABS: Hematocrit 38.8 % (35.0-46.0); Hemoglobin 12.6 gm/dL (11.6-15.3); Mean Corpuscular HGB Conc 32.5 % (32.0-36.0); Mean Corpuscular Hemoglobin 30.4 pg (27.0-34.0); Mean Corpuscular Volume 93.5 fL (80.0-100.0); Mean Platelet Volume 7.2 fL (7.0-11.0); Platelet Count 448 th/mm3 (150-450); Red Blood Count 4.15 mil/mm3 (4.00-5.30); Red Cell Distribution Width 15.5 % (11.6-17.2); White Blood Count 10.2 th/mm3 (4.0-11.0)
[2018-01-17] MEDS ORDERED: Diatrizoate Meglum/Diatrizoate Sod Liq 9 ML UDC PO ONE (21:30)
[2018-01-18] MEDS: Senna/Docusate Sodium 8.6/50 MG Tablet PO SCH ×3 (00:45→20:17)
[2018-01-18] MEDS: Famotidine 20 MG Tablet PO SCH ×3 (00:45→20:16)
[2018-01-18] MEDS: Metoprolol Tartrate 50 MG Tablet PO SCH ×3 (00:45→20:17)
[2018-01-18] MEDS: hydrALAZINE 25 MG Tablet PO SCH ×5 (00:45→20:17)
--- NOTE | 2018-01-18 02:54 | CT ---
EXAM DATE: 01/18/2018 2:45 AM EDT AGE/SEX: 52 years / Female INDICATIONS: Upper abdomen pain. CLINICAL DATA: This is the patient's initial encounter. Patient reports that signs and symptoms have been present for 1 day and indicates a pain score of 5/10. MEDICAL/SURGICAL HISTORY: Renal failure, chronic. Diabetes. Gastroparesis. Hypertension. . Insulin pump. RADIATION DOSE: 6.91 CTDI (mGy) COMPARISON: [facility], CHEST 1V SINGLE AP, 01/17/2018. . TECHNIQUE: Multiple contiguous axial images were obtained through the abdomen. Images were obtained using multiple row detector helical technique. Using automated exposure control and adjustment of the mA and/or kV according to patient size, radiation dose was kept as low as reasonably achievable to o btain optimal diagnostic quality images. DICOM format image data is available electronically for rev iew and comparison. FINDINGS: Liver measures 20.5 cm craniocaudal. No focal hepatic lesion or ductal dilatation present. CT appeara nce of the gallbladder within normal limits. Noncontrast appearance of the spleen, pancreas, adrenal glands and kidneys within normal limits. No obstruction or acute inflammatory changes are seen of the gastrointestinal tract. The appendix is well-visualized, normal. No free fluid or free air. No lymphadenopathy. A small hiatal hernia is note d. Small effusions and mild atelectasis seen of the visualized lung bases. CONCLUSION: 1. Mild nonspecific hepatomegaly. 2. Urinary bladder is distended at the time of imaging and please correlate clinically. 3. No other acute abnormality is seen within the abdomen or pelvis. Specifically, no obstruction or acute inflammatory changes. No mass or fluid collection. 4. Small hiatal hernia. 5. Small effusions and mild atelectasis of the visualized lung bases. Electronically signed by: Williams Haque MD 01/18/2018 2:53 AM EDT
[2018-01-18] MEDS ORDERED: Chlorhexidine Gluconate 2% 1 Pack (2 Cloths) TOPICAL PRN (04:00)
[2018-01-18] MEDS: Levothyroxine 100 MCG Tablet PO SCH (05:54)
[2018-01-18] MEDS: Chlorhexidine Gluconate 2% 1 Pack (2 Cloths) TOPICAL SCH (05:55)
[2018-01-18 06:42] LABS: Baso # (Auto) 0.1 th/mm3 (0.0-0.2); Baso % (Auto) 0.6 % (0.0-2.0); Hematocrit 36.3 % (35.0-46.0); Hemoglobin 12.1 gm/dL (11.6-15.3); Lymph # (Auto) 1.3 th/mm3 (1.0-4.8); Lymph % (Auto) 14.5 % (9.0-44.0); Mean Corpuscular HGB Conc 33.2 % (32.0-36.0); Mean Corpuscular Volume 93.4 fL (80.0-100.0); Mean Platelet Volume 7.3 fL (7.0-11.0); Mono # (Auto) 0.8 th/mm3 (0.0-0.9); Mono % (Auto) 8.3 % (0.0-8.0); Neut # (Auto) 7.1 th/mm3 (1.8-7.7); Neut % (Auto) 76.6 % (16.0-70.0); Platelet Count 412 th/mm3 (150-450); Red Blood Count 3.89 mil/mm3 (4.00-5.30); Red Cell Distribution Width 15.4 % (11.6-17.2); White Blood Count 9.3 th/mm3 (4.0-11.0)
[2018-01-18 06:57] LABS: Alanine Aminotransferase 12 U/L (10-53); Albumin 3.5 g/dL (3.4-5.0); Anion Gap 14 meq/L (5-15); Aspartate Aminotransferase 9 U/L (15-37); Blood Urea Nitrogen 32 mg/dL (7-18); Calcium 8.7 mg/dL (8.5-10.1); Carbon Dioxide 29.4 meq/L (21.0-32.0); Chloride 96 meq/L (98-107); Glucose,Random 119 mg/dL (74-106); Potassium 3.5 meq/L (3.5-5.1); Sodium 139 meq/L (136-145)
[2018-01-18 07:00] LABS: Alkaline Phosphatase 113 U/L (45-117); Glomerular Filtration Rate 8 mL/min (>89); Total Protein 8.2 g/dL (6.4-8.2)
--- NOTE | 2018-01-18 08:26 | P.HPFP ---
History of Present Illness Primary Care Physician: UNKNOWN Chief Complaint: DKA History of Present Illness: Patient is a 52 year old female with end-stage renal disease on hemodialysis, recent left tibial fracture, Diabetes, Diabetic neuropathy, Footdrop, Gastroparesis, Hypertension who was admitted to [facility] on . She was admitted to [place] initially on 11/30/2017 after sustaining a fall and left distal tibial fracture. She underwent intramedullary nailing on 12/05 discharged. Patient was readmitted to [facility] on 12/16/2017 with anemia and right hand wound infection. She was eventually discharged to [facility] on 12/25/2017. She has been noncompliant with insulin refusing her scheduled Levemir today a.m. being afraid of hypoglycemia during dialysis. She has had several episodes of low blood sugars. After this patient had been having sustained hyperglycemia with blood sugar in the 300s and she developed nausea and vomiting. Suspecting DKA She was transferred to ICU started on Insulin drip. - Diagnosis (1) Diabetes mellitus (2) ESRD (end stage renal disease) (3) Hypertension (4) Ankle fracture (5) Infection of right hand (6) DVT (deep venous thrombosis) Inpatient Certification: I certify that the inpatient services were ordered in accordance with Medicare regulations governing the order. This includes certification that hospital inpatient services are reasonable and necessary and in the case of services not specified as inpatient-only under 42 CFR 419.22(n), that they are appropriately provided as inpatient services in accordance to with the 2-midnight benchmark under 43 CFR 412.3(e) Estimated Total Length of Stay (Days): 3 Plans for Post Hospital Care: Not yet determined COUNT INCLUDES THE [facility] - History History Provided By: Patient - Medical History Medical History: Medical History (Last Updated 12/24/17 @ 11:52 by Leida Ponce MD) Anxiety Carpal tunnel syndrome, right upper limb Complication of vascular access for dialysis Depression Diabetes Diabetic neuropathy End-stage renal disease on hemodialysis Footdrop Gastroparesis Hypertension Impaired mobility and activities of daily living Insulin pump in place Renal failure Vascular dialysis catheter in place - Surgical History Surgical History: Surgical History (Last Reviewed 12/12/17 @ 09:05 by Ana Gee) Status post debridement - Tobacco History Second Hand Smoke Exposure: No Smoking Status: Never smoker - Alcohol History How Often Do You Have a Drink Containing Alcohol: Never - Substance Use History Substance History: No History of Abuse - Immunization History Tetanus Immunization: >5 Years Hx Influenza Vaccine This Season: No Medications and Allergies Active Medications: Active Medications Acetaminophen (Tylenol) 650 mg PO Q6H PRN PRN Reason: FEVER >101F Al Hydroxide/Mg Hydroxide (Milk Of Magnesia Liq) 30 ml PO Q12H PRN PRN Reason: Mild Constipation Albuterol (Duoneb Neb (Prn)) 1 ampul NEB Q2HR NEB PRN PRN Reason: WHEEZING Apixaban (Eliquis) 2.5 mg PO BID [facility] Last Admin: 01/18/18 00:45 Dose: 2.5 mg Bisacodyl (Dulcolax Supp) 10 mg RECTAL DAILY PRN PRN Reason: SEVERE CONSITIPATION Chlorhexidine Gluconate (Chlorhexidine 2% Cloth) 3 pack TOPICAL DAILY@0400 [facility] Stop: 01/23/18 03:59 Last Admin: 01/18/18 05:55 Dose: 3 pack Chlorhexidine Gluconate (Chlorhexidine 2% Cloth) 3 pack TOPICAL DAILY@0400 PRN PRN Reason: Extra cloth needed Stop: 01/23/18 03:59 Dextrose (D50w Vial) 50 ml IV.PUSH UNSCH PRN PRN Reason: PER HYPOGLYCEMIA PROTOCOL Famotidine (Pepcid) 10 mg PO BID [facility] Last Admin: 01/18/18 00:45 Dose: 10 mg Hydralazine HCl (Apresoline) 25 mg PO QID [facility] Last Admin: 01/18/18 00:45 Dose: 25 mg Insulin Human Regular 100 unit (/ Sodium Chloride) 100 mls @ 0 mls/hr IV.CONT TITRATE PRN; Protocol PRN Reason: See protocol Last Titration: 01/18/18 02:17 Dose: 1 units/hr, 1 mls/hr Cefepime HCl 1,000 mg/ Sodium (Chloride) 100 mls @ 200 mls/hr IV.SIG Q12H [facility] Last Infusion: 01/18/18 06:24 Dose: Infused Labetalol HCl (Trandate Inj) 10 mg IV.PUSH Q2H PRN PRN Reason: SYS BP GREATER THAN 170 [facility] Last Admin: 01/17/18 23:03 Dose: 10 mg Lactulose (Lactulose Liq) 30 ml PO DAILY PRN PRN Reason: SEVERE CONSITIPATION Levothyroxine Sodium (Synthroid) 100 mcg PO DAILY@0600 [facility] Last Admin: 01/18/18 05:54 Dose: 100 mcg Metoprolol Tartrate (Lopressor) 50 mg PO BID [facility] Last Admin: 01/18/18 00:45 Dose: 50 mg Morphine Sulfate (Morphine Inj) 1 mg IV.PUSH Q4H PRN PRN Reason: PAIN 1-10 Last Admin: 01/17/18 18:36 Dose: 1 mg Nifedipine (Procardia Xl) 90 mg PO DAILY [facility] Ondansetron HCl (Zofran Odt) 4 mg PO TID PRN PRN Reason: NAUSEA Last Admin: 01/17/18 17:28 Dose: 4 mg Ondansetron HCl (Zofran Inj) 4 mg IV.PUSH Q6H PRN PRN Reason: NAUSEA OR VOMITING Last Admin: 01/18/18 06:55 Dose: 4 mg Prochlorperazine Edisylate (Compazine Inj) 5 mg IV.PUSH Q4H PRN PRN Reason: SEVERE NAUSEA Last Admin: 01/17/18 23:52 Dose: 5 mg Senna/Docusate Sodium (Florencia-Colace) 1 tab PO BID [facility] Last Admin: 01/18/18 00:45 Dose: 1 tab Sennosides (Senokot) 17.2 mg PO Q12H PRN PRN Reason: Moderate Constipation Sodium Chloride (Ns Flush) 2 ml IV.FLUSH BID [facility] Last Admin: 01/17/18 20:07 Dose: 2 ml Sodium Chloride (Ns Flush) 2 ml IV.FLUSH PRN PRN PRN Reason: FLUSH AFTER USING IV ACCESS Allergies Allergy/AdvReac Type Severity Reaction Status Date / Time barium sulfate Allergy Severe Anaphylaxis Verified 11/30/17 12:28 ciprofloxacin [From Cipro] Allergy Severe Anaphylaxis Verified 11/30/17 12:28 Latex, Natural Rubber Allergy Severe Anaphylaxis Verified 11/30/17 12:28 metoclopramide [From Reglan] Allergy Severe Anaphylaxis Verified 11/30/17 12:28 Penicillins Allergy Severe Anaphylaxis Verified 11/30/17 12:28 vancomycin Allergy Severe Anaphylaxis Verified 11/30/17 12:28 onion Allergy Vomiting Verified 12/24/17 13:56 Home Medications Medication Instructions Recorded Confirmed Type apixaban [Eliquis] 2.5 mg PO BID 11/30/17 12/24/17 History folic acid 1 mg PO DAILY 11/30/17 12/24/17 History levothyroxine [Synthroid] 100 mcg PO DAILY 11/30/17 12/24/17 History ondansetron [Zofran ODT] 4 mg PO TID PRN 11/30/17 12/24/17 History pantoprazole [Protonix] 40 mg PO BID 11/30/17 12/24/17 History paroxetine HCl 20 mg PO DAILY 11/30/17 12/24/17 History acetaminophen [Tylenol] 650 mg PO Q4H PRN 12/24/17 12/24/17 History ascorbic acid (vitamin C) 500 mg PO BID 12/24/17 12/24/17 History balsam cj-castor oil 1 applic TOPICAL BID 12/24/17 12/24/17 History buspirone 5 mg PO TID 12/24/17 12/24/17 History calcium carbonate-vitamin D3 1 tab PO BID 12/24/17 12/24/17 History [Oyster Shell Calcium-Vit D3] cefuroxime axetil 250 mg PO Q12H 12/24/17 12/24/17 History diphenhydramine HCl [Benadryl] 25 mg PO TID PRN 12/24/17 12/24/17 History furosemide [Lasix] 20 mg PO BID 12/24/17 12/24/17 History hydralazine 25 mg PO QID 12/24/17 12/24/17 History hyoscyamine sulfate 0.125 mg PO QID PRN 12/24/17 12/24/17 History insulin glargine [Lantus U-100 20 unit SUB-Q DAILY 12/24/17 12/24/17 History Insulin] lisinopril 10 mg PO DAILY 12/24/17 12/24/17 History metoprolol tartrate 50 mg PO BID 12/24/17 12/24/17 History nifedipine 90 mg PO DAILY 12/24/17 12/24/17 History silver sulfadiazine 1 applic TOPICAL DAILY 12/24/17 12/24/17 History zinc sulfate 220 mg PO DAILY 12/24/17 12/24/17 History Exam Vital signs: Vital Signs 01/17/18 16:19 01/17/18 17:00 01/17/18 19:00 Temperature 98.5 F Pulse Rate 93 H Respiratory Rate 18 Blood Pressure 190/92 H Pulse Oximetry 98 99 97 01/17/18 20:00 01/17/18 21:00 01/17/18 22:00 Temperature Pulse Rate 101 H 92 H 96 H Respiratory Rate 18 18 17 Blood Pressure 161/80 H 157/75 H 158/73 H Pulse Oximetry 93 L 96 97 01/17/18 23:00 01/18/18 00:00 01/18/18 01:00 Temperature Pulse Rate 96 H 92 H 97 H Respiratory Rate 13 16 15 Blood Pressure 187/84 H 163/75 H 132/63 Pulse Oximetry 97 95 91 L 01/18/18 02:00 01/18/18 03:00 01/18/18 04:00 Temperature 97.8 F Pulse Rate 96 H 95 H 81 Respiratory Rate 15 15 20 Blood Pressure 144/72 H 141/69 H 107/55 L Pulse Oximetry 93 L 93 L 98 01/18/18 05:00 01/18/18 06:00 01/18/18 07:00 Temperature Pulse Rate 81 85 Respiratory Rate 20 20 Blood Pressure 132/63 146/70 H Pulse Oximetry 100 100 99 Intake & Output 01/17/18 01/18/18 01/18/18 18:59 06:59 18:59 Intake Total 300 / 300 Output Total 5900 / 5900 Balance -5600 / -5600 Weight 83 kg Intake: IV 300 / 300 Maxipime Inj 1,000 MG In NS Inj 200 / 200 100 ML @ 200 mls/hr IV.SIG Q12H [facility] Rx#:[id number] Cubicin Inj 725 MG In NS Inj 100 / 100 100 ML @ 200 mls/hr IV.SIG ONCE ONE Rx#:[id number] Oral 0 / 0 Output: Hemodialysis Amount 5000 / 5000 Urine Amount (Catheter) 900 / 900 Straight 900 / 900 Other: Date of Last Bowel Movement 01/16/18 01/16/18 # Bowel Movements 0 Weight On Admission 82.5 kg - Constitutional no acute distress - Routine HEENT Exam Eye: Present: PERRL ENT: Present: mucous membranes moist - Routine Respiratory Exam Present: CTA bilaterally - Routine Cardiovascular Exam Present: RRR, S1, S2 - Routine Abdominal Exam Present: soft, tenderness - Routine Extremities Exam Comments: Left LE with soft cast - Routine Skin Exam Present: dry, warm Comments: Dressing to RUE C/D/I - Routine Neurological Exam Present: alert, oriented X3 Results - Labs Result diagrams: 01/18/18 05:16 01/18/18 05:16 Abnormal lab results 01/17/18 01/17/18 01/17/18 Range/Units 15:42 16:15 16:40 RBC (4.00-5.30) mil/mm3 Neut % (Auto) (16.0-70.0) % Bath % (Auto) (0.0-8.0) % ABG pCO2 35 L (38-42) mmHg Hemoglobin 11.7 L (12.0-16.0) G/DL Chloride (98-107) meq/L BUN (7-18) mg/dL Creatinine (0.50-1.00) mg/dL Estimated GFR (>89) mL/min POC Glucose 383 H (68-110) mg/dl Random Glucose (74-106) mg/dL AST (15-37) U/L Troponin I 0.20 H (0.02-0.05) ng/mL 01/17/18 01/17/18 01/17/18 Range/Units 18:07 20:14 21:30 RBC (4.00-5.30) mil/mm3 Neut % (Auto) (16.0-70.0) % Bath % (Auto) (0.0-8.0) % ABG pCO2 (38-42) mmHg Hemoglobin (12.0-16.0) G/DL Chloride (98-107) meq/L BUN (7-18) mg/dL Creatinine (0.50-1.00) mg/dL Estimated GFR (>89) mL/min POC Glucose 261 H 141 H 121 H (68-110) mg/dl Random Glucose (74-106) mg/dL AST (15-37) U/L Troponin I (0.02-0.05) ng/mL 01/17/18 01/17/18 01/17/18 Range/Units 21:50 22:31 22:47 RBC (4.00-5.30) mil/mm3 Neut % (Auto) (16.0-70.0) % Bath % (Auto) (0.0-8.0) % ABG pCO2 (38-42) mmHg Hemoglobin (12.0-16.0) G/DL Chloride (98-107) meq/L BUN (7-18) mg/dL Creatinine (0.50-1.00) mg/dL Estimated GFR (>89) mL/min POC Glucose 136 H 216 H (68-110) mg/dl Random Glucose (74-106) mg/dL AST (15-37) U/L Troponin I 0.19 H (0.02-0.05) ng/mL 01/17/18 01/17/18 01/17/18 Range/Units 23:09 23:32 23:57 RBC (4.00-5.30) mil/mm3 Neut % (Auto) (16.0-70.0) % Bath % (Auto) (0.0-8.0) % ABG pCO2 (38-42) mmHg Hemoglobin (12.0-16.0) G/DL Chloride (98-107) meq/L BUN (7-18) mg/dL Creatinine (0.50-1.00) mg/dL Estimated GFR (>89) mL/min POC Glucose 225 H 238 H 253 H (68-110) mg/dl Random Glucose (74-106) mg/dL AST (15-37) U/L Troponin I (0.02-0.05) ng/mL 01/18/18 01/18/18 01/18/18 Range/Units 00:57 02:16 03:15 RBC (4.00-5.30) mil/mm3 Neut % (Auto) (16.0-70.0) % Bath % (Auto) (0.0-8.0) % ABG pCO2 (38-42) mmHg Hemoglobin (12.0-16.0) G/DL Chloride (98-107) meq/L BUN (7-18) mg/dL Creatinine (0.50-1.00) mg/dL Estimated GFR (>89) mL/min POC Glucose 209 H 142 H 124 H (68-110) mg/dl Random Glucose (74-106) mg/dL AST (15-37) U/L Troponin I (0.02-0.05) ng/mL 01/18/18 01/18/18 01/18/18 Range/Units 05:00 05:16 05:16 RBC 3.89 L (4.00-5.30) mil/mm3 Neut % (Auto) 76.6 H (16.0-70.0) % Bath % (Auto) 8.3 H (0.0-8.0) % ABG pCO2 (38-42) mmHg Hemoglobin (12.0-16.0) G/DL Chloride 96 L D (98-107) meq/L BUN 32 H (7-18) mg/dL Creatinine 5.53 H (0.50-1.00) mg/dL Estimated GFR 8 L (>89) mL/min POC Glucose 140 H (68-110) mg/dl Random Glucose 119 H D (74-106) mg/dL AST 9 L (15-37) U/L Troponin I (0.02-0.05) ng/mL 01/18/18 01/18/18 01/18/18 Range/Units 06:02 07:00 08:02 RBC (4.00-5.30) mil/mm3 Neut % (Auto) (16.0-70.0) % Bath % (Auto) (0.0-8.0) % ABG pCO2 (38-42) mmHg Hemoglobin (12.0-16.0) G/DL Chloride (98-107) meq/L BUN (7-18) mg/dL Creatinine (0.50-1.00) mg/dL Estimated GFR (>89) mL/min POC Glucose 126 H 123 H 118 H (68-110) mg/dl Random Glucose (74-106) mg/dL AST (15-37) U/L Troponin I (0.02-0.05) ng/mL Short CBC 01/17/18 01/18/18 Range/Units 20:30 05:16 WBC 10.2 9.3 (4.0-11.0) th/mm3 Hgb 12.6 12.1 (11.6-15.3) gm/dL Hct 38.8 36.3 (35.0-46.0) % Plt Count 448 412 (150-450) th/mm3 [facility] 01/18/18 05:16 Sodium 139 D Potassium 3.5 Chloride 96 L D Carbon Dioxide 29.4 BUN 32 H Creatinine 5.53 H Calcium 8.7 Cardiac Enzymes 01/17/18 01/17/18 Range/Units 16:40 22:47 Troponin I 0.20 H 0.19 H (0.02-0.05) ng/mL Liver Function 01/18/18 Range/Units 05:16 Total Bilirubin 0.4 (0.2-1.0) mg/dL AST 9 L (15-37) U/L ALT 12 (10-53) U/L Alkaline Phosphatase 113 (45-117) U/L Albumin 3.5 (3.4-5.0) g/dL - Imaging Impressions Chest X-Ray 01/17/18 16:02 CONCLUSION: Left lower lobe airspace disease and probable left effusion. Abdomen/Pelvis CT 01/18/18 00:00 CONCLUSION: 1. Mild nonspecific hepatomegaly. 2. Urinary bladder is distended at the time of imaging and please correlate clinically. 3. No other acute abnormality is seen within the abdomen or pelvis. Specifically, no obstruction or acute inflammatory changes. No mass or fluid collection. 4. Small hiatal hernia. 5. Small effusions and mild atelectasis of the visualized lung bases. Caprini VTE Risk Assessment Caprini VTE Risk Assessment: Moderate/High Risk (score >= 2) Caprini Risk Assessment Model: Point Value = 1 Point Value = 2 Point Value = 3 Point Value = 5 Age 41-60 Minor surgery BMI > 25 kg/m2 Swollen legs Varicose veins or History of unexplained or recurrent spontaneous Oral contraceptives or hormone replacement Sepsis (< 1 month) Serious lung disease, including pneumonia (< 1 month) Abnormal pulmonary function Acute myocardial infarction Congestive heart failure (< 1 month) History of inflammatory bowel disease Medical patient at bed rest Age 61-74 Arthroscopic surgery Major open surgery (> 45 min) Laparoscopic surgery (> 45 min) Malignancy Confined to bed (> 72 hours) Immobilizing plaster cast Central venous access Age >= 75 History of VTE Family history of VTE Factor V Leiden Prothrombin [id number] Lupus anticoagulant Anticardiolipin antibodies Elevated serum homocysteine Heparin-induced thrombocytopenia Other congenital or acquired thrombophilia Stroke (< 1 month) Elective arthroplasty Hip, pelvis, or leg fracture Acute spinal cord injury (< 1 month) Prophylaxis Regimen: Total Risk Factor Score Risk Level Prophylaxis Regimen 0-1 Low Early ambulation 2 Moderate Order ONE of the following: *Sequential Compression Device (SCD) *Heparin 5000 units SQ BID 3-4 Higher Order ONE of the following medications: *Heparin 5000 units SQ TID *Enoxaparin/Lovenox 40 mg SQ daily (WT < 150 kg, CrCl > 30 mL/min) *Enoxaparin/Lovenox 30 mg SQ daily (WT < 150 kg, CrCl > 10-29 mL/min) *Enoxaparin/Lovenox 30 mg SQ BID (WT < 150 kg, CrCl > 30 mL/min) AND/OR *Sequential Compression Device (SCD) 5 or more Highest Order ONE of the following medications: *Heparin 5000 units SQ TID (Preferred with Epidurals) *Enoxaparin/Lovenox 40 mg SQ daily (WT < 150 kg, CrCl > 30 mL/min) *Enoxaparin/Lovenox 30 mg SQ daily (WT < 150 kg, CrCl > 10-29 mL/min) *Enoxaparin/Lovenox 30 mg SQ BID (WT < 150 kg, CrCl > 30 mL/min) AND *Sequential Compression Device (SCD) Assessment and Plan - Assessment (1) Diabetes mellitus Code(s): E11.9 - Type 2 diabetes mellitus without complications Status: Chronic Plan: Transferred from Rehab, for early DKA, started on Insulin drip at oversight of radiology specialist. BS monitored Q1 hour (2) ESRD (end stage renal disease) Code(s): N18.6 - End stage renal disease Status: Chronic Plan: Dialysis Tue//Tue (3) Hypertension Code(s): I10 - Essential (primary) hypertension Status: Chronic Plan: Cont current medications, Monitor B/P (4) Ankle fracture Code(s): S82.899A - Other fracture of unspecified lower leg, initial encounter for closed fracture Status: Acute Plan: F/U with Ortho on 01/30 (5) Infection of right hand Code(s): L08.9 - Local infection of the skin and subcutaneous tissue, unspecified Status: Chronic Plan: Cont Iv antibiotics, Dsg changes BID (6) DVT (deep venous thrombosis) Code(s): I82.409 - Acute embolism and thrombosis of unspecified deep veins of unspecified lower extremity Status: Chronic Plan: Eliquis 2.5 mg bid H&P: Quality - VTE Deep Vein Thrombosis/Pulmonary Embolism Present on Admission: No (1) Diabetes mellitus Qualifiers: Diabetes mellitus type: type 2 Diabetes mellitus care home insulin use: with ocean transportation intermediary use Diabetes mellitus complication status: with skin complications Diabetes mellitus complication detail: with other skin complication Qualified Code(s): E11.628 - Type 2 diabetes mellitus with other skin complications; 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
[2018-01-18] MEDS ORDERED: Gelatin 12 MM/7 MM Topical Foam TOPICAL PRN (09:46)
[2018-01-18] MEDS ORDERED: Acetaminophen 325 MG Tablet PO PRN (09:46)
[2018-01-18] MEDS ORDERED: Heparin 10,000 UNITS/10 ML Vial (for IV use) OTHER PRN ×2 (09:46)
[2018-01-18] MEDS ORDERED: Sod Chloride 0.9% Inj 1,000 ML OTHER PRN ×2 (09:46)
[2018-01-18] MEDS ORDERED: Albumin Human 25% Inj 100 ML IV.SIG PRN (09:46)
[2018-01-18] MEDS ORDERED: Sodium Chlor 0.9% Inj 200 ML IV.SIG PRN (09:46)
--- NOTE | 2018-01-18 11:24 | P.PNNP ---
Subjective Interval history: Transferred to [facility] for treatment of DKA. She is nauseated and vomiting again today. Unable to eat. Insulin gtt continues. <Alethea Moreno - Last Filed: 01/18/18 11:14> Physical Exam Vital signs: Vital Signs 01/17/18 16:19 01/17/18 17:00 01/17/18 19:00 Temperature 98.5 F Pulse Rate 93 H Respiratory Rate 18 Blood Pressure 190/92 H Pulse Oximetry 98 99 97 01/17/18 20:00 01/17/18 21:00 01/17/18 22:00 Temperature Pulse Rate 101 H 92 H 96 H Respiratory Rate 18 18 17 Blood Pressure 161/80 H 157/75 H 158/73 H Pulse Oximetry 93 L 96 97 01/17/18 23:00 01/18/18 00:00 01/18/18 01:00 Temperature Pulse Rate 96 H 92 H 97 H Respiratory Rate 13 16 15 Blood Pressure 187/84 H 163/75 H 132/63 Pulse Oximetry 97 95 91 L 01/18/18 02:00 01/18/18 03:00 01/18/18 04:00 Temperature 97.8 F Pulse Rate 96 H 95 H 81 Respiratory Rate 15 15 20 Blood Pressure 144/72 H 141/69 H 107/55 L Pulse Oximetry 93 L 93 L 98 01/18/18 05:00 01/18/18 06:00 01/18/18 07:00 Temperature Pulse Rate 81 85 Respiratory Rate 20 20 Blood Pressure 132/63 146/70 H Pulse Oximetry 100 100 99 01/18/18 08:00 01/18/18 09:00 01/18/18 10:00 Temperature 98.3 F Pulse Rate 97 H 90 93 H Respiratory Rate 18 18 22 Blood Pressure 129/64 115/57 L 114/61 Pulse Oximetry 97 98 99 01/18/18 11:00 Temperature Pulse Rate 94 H Respiratory Rate 17 Blood Pressure 139/72 Pulse Oximetry 99 Intake & Output 01/17/18 01/18/18 01/18/18 18:59 06:59 18:59 Intake Total 300 / 300 Output Total 5900 / 5900 Balance -5600 / -5600 Weight 83 kg Intake: IV 300 / 300 Maxipime Inj 1,000 MG In NS Inj 200 / 200 100 ML @ 200 mls/hr IV.SIG Q12H CHAVO Rx#:[id number] Cubicin Inj 725 MG In NS Inj 100 / 100 100 ML @ 200 mls/hr IV.SIG ONCE ONE Rx#:[id number] Oral 0 / 0 Output: Hemodialysis Amount 5000 / 5000 Urine Amount (Catheter) 900 / 900 Straight 900 / 900 Other: Date of Last Bowel Movement 01/16/18 01/16/18 # Bowel Movements 0 Weight On Admission 82.5 kg - Constitutional mild distress, chronically ill appearing Comments: acutely ill appearing - Routine HEENT Exam Head: Present: normocephalic Eye: Present: periorbital swelling - Routine Neck Exam Present: supple, full ROM - Routine Respiratory Exam Present: CTA bilaterally. Absent: accessory muscle use - Routine Cardiovascular Exam Present: RRR, S1, S2 - Routine Abdominal Exam Present: soft, normoactive bowel sounds, guarding. Absent: tenderness, distended, rebound - Routine Extremities Exam Present: edema, pulses intact Comments: left leg splinted - Routine Skin Exam Present: intact, dry, warm Comments: right pinky finger necrotic - Routine Neurological Exam Present: alert, oriented X3, CN II-XII intact, moving all extremities - Detailed Neurological Exam: Coma Scale Eye Opening: Spontaneous Verbal Response: Oriented Motor Response: Obey commands Alejandra Coma Scale Total: 15 - Routine Psychiatric Exam Present: normal affect, normal thought process - Urinary Catheter Management Straight Cath placed during this visit: no <Alethea Moreno - Last Filed: 01/18/18 11:14> Vital signs: Vital Signs 01/18/18 19:00 01/18/18 20:00 01/18/18 21:00 Temperature 98.8 F Pulse Rate 91 H 92 H 98 H Respiratory Rate 17 14 14 Blood Pressure 150/73 H 145/75 H 160/78 H Pulse Oximetry 92 L 92 L 99 01/19/18 00:00 01/19/18 04:00 01/19/18 08:00 Temperature 98.6 F 98.1 F 98.7 F Pulse Rate 82 88 98 H Respiratory Rate 24 16 18 Blood Pressure 137/60 168/85 H 132/63 Pulse Oximetry 97 100 100 01/19/18 12:00 01/19/18 16:00 Temperature 98.8 F 98 F Pulse Rate 111 H 84 Respiratory Rate 16 18 Blood Pressure 139/69 101/58 L Pulse Oximetry 98 98 Intake & Output 08/29/18 08/30/18 08/30/18 18:59 06:59 18:59 Intake Total 240 / 240 960 / 960 Output Total 3500 / 3500 Balance 240 / 240 960 / 960 -3500 / -3500 Weight 87.5 kg Intake: Oral 240 / 240 960 / 960 Output: Hemodialysis Amount 3500 / 3500 Other: Date of Last Bowel Movement 01/16/18 # Bowel Movements 0 - Urinary Catheter Management Straight Cath placed during this visit: no <Bobo Alvarado - Last Filed: 01/19/18 18:12> Assessment and Plan - Assessment (1) ESRD (end stage renal disease) Code(s): N18.6 - End stage renal disease Status: Chronic Plan: HD TTS. 5L UF yesterday. Avoid excess IVF administration. Received one liter NS on admission per protocol. PermCath for HD use only. Fluid removal as tolerated High protein diet when able to eat. Repeat labs intermittently. Ordered Renvela when able to eat. Most recent phosphorus level is acceptable. (2) DKA (diabetic ketoacidoses) Code(s): E13.10 - Other specified diabetes mellitus with ketoacidosis without coma Status: Acute Plan: See above Anion gap is closed. (3) Diabetes mellitus Code(s): E11.9 - Type 2 diabetes mellitus without complications Status: Chronic Qualifiers: Diabetes mellitus type: type 2 Diabetes mellitus shelter insulin use: with shelter use Diabetes mellitus complication status: with skin complications Diabetes mellitus complication detail: with other skin complication Qualified Code(s): E11.628 - Type 2 diabetes mellitus with other skin complications; Z79.4 - snf (current) use of insulin Plan: Resolving DKA On insulin gtt. Continue protocol. (4) Hypertension Code(s): I10 - Essential (primary) hypertension Status: Chronic Qualifiers: Hypertension type: essential hypertension Qualified Code(s): I10 - Essential (primary) hypertension Plan: Continue medications as ordered. (5) Anemia of renal disease Code(s): D63.1 - Anemia in chronic kidney disease Status: Acute Plan: Epogen not required. Hb is much better than previous readings while at rehab. (6) Infection of right hand Code(s): L08.9 - Local infection of the skin and subcutaneous tissue, unspecified Status: Chronic Plan: On cefepime and given vancomycin Also possible HCAP per imaging. (7) DVT (deep venous thrombosis) Code(s): I82.409 - Acute embolism and thrombosis of unspecified deep veins of unspecified lower extremity Status: Chronic Qualifiers: DVT location: upper extremity Laterality: right Plan: On Apixaban, renal dose. <Alethea Moreno - Last Filed: 01/18/18 11:14> - Assessment (1) ESRD (end stage renal disease) Code(s): N18.6 - End stage renal disease Status: Chronic (2) DKA (diabetic ketoacidoses) Code(s): E13.10 - Other specified diabetes mellitus with ketoacidosis without coma Status: Acute (3) Diabetes mellitus Code(s): E11.9 - Type 2 diabetes mellitus without complications Status: Chronic Qualifiers: Diabetes mellitus type: type 2 Diabetes mellitus intermediate project manager insulin use: with intermediate project manager use Diabetes mellitus complication status: with skin complications Diabetes mellitus complication detail: with other skin complication Qualified Code(s): E11.628 - Type 2 diabetes mellitus with other skin complications; Z79.4 - ferry terminal supervisor (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) 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 of insulin (4) Hypertension Code(s): I10 - Essential (primary) hypertension Status: Chronic Qualifiers: Hypertension type: essential hypertension Qualified Code(s): I10 - Essential (primary) hypertension (5) Anemia of renal disease Code(s): D63.1 - Anemia in chronic kidney disease Status: Acute (6) Infection of right hand Code(s): L08.9 - Local infection of the skin and subcutaneous tissue, unspecified Status: Chronic (7) DVT (deep venous thrombosis) Code(s): I82.409 - Acute embolism and thrombosis of unspecified deep veins of unspecified lower extremity Status: Chronic Qualifiers: DVT location: upper extremity Laterality: right (8) Gastroparesis Code(s): K31.84 - Gastroparesis Status: Acute - Attending Attestation patient was seen and examined. Agree with above assessment and plan. Notes were extensively reviewed. On insulin drip. Patient has nausea, vomiting. Dialysis will be continued. <Bobo Alvarado - Last Filed: 01/19/18 18:12>
--- NOTE | 2018-01-18 12:06 | P.PNCC ---
Subjective Subjective Remarks/Hospital Course: Patient is a 52 year old female with end-stage renal disease on hemodialysis, recent left tibial fracture, Diabetes, Diabetic neuropathy, Footdrop, Gastroparesis, Hypertension who was admitted to [facility] on . She was admitted to [place] initially on 11/30/2017 after sustaining a fall and left distal tibial fracture. She underwent intramedullary nailing on 12/05 discharged. Patient was readmitted to [facility] on 12/16/2017 with anemia and right hand wound infection. She was eventually discharged to [facility] on 12/25/2017, and was being medically managed by Dr. Lindsey. Apparently for the last few days patient had been noncompliant with insulin. She refused her scheduled Levemir today a.m. being afraid of hypoglycemia during dialysis. After this patient had been having sustained hyperglycemia with blood sugar in the 300s and she developed nausea and vomiting. Suspecting DKA a chemistry panel was ordered which came back with sodium 129 chloride 87 anion gap was 18 blood sugar was 397 beta hydroxybutyrate was 2.21. ABG did not show significant acidosis however her labs were suspicious for early DKA along with the clinical presentation. Patient was transferred to the ICU and I immediately evaluated her. She appears lethargic but alert awake and responds to questions. Her chest x-ray shows left lower lobe consolidation and cefepime had been started along with IV Vanc. Unable to use DKA protocol with IV fluids due to end-stage renal disease. I have started her on ICU insulin algorithm 1 protocol SUBJ 01/18: Clinically improved with improved blood sugar control. DKA mild appears to have resolved. Currently on insulin infusion, transitioned to Levemir with pre-meal NovoLog and sliding scale. CT of the abdomen pelvis essentially negative for acute findings Objective Vital Signs / I&O: Vital Signs 01/17/18 16:19 01/17/18 17:00 01/17/18 19:00 Temperature 98.5 F Pulse Rate 93 H Respiratory Rate 18 Blood Pressure 190/92 H Pulse Oximetry 98 99 97 01/17/18 20:00 01/17/18 21:00 01/17/18 22:00 Temperature Pulse Rate 101 H 92 H 96 H Respiratory Rate 18 18 17 Blood Pressure 161/80 H 157/75 H 158/73 H Pulse Oximetry 93 L 96 97 01/17/18 23:00 01/18/18 00:00 01/18/18 01:00 Temperature Pulse Rate 96 H 92 H 97 H Respiratory Rate 13 16 15 Blood Pressure 187/84 H 163/75 H 132/63 Pulse Oximetry 97 95 91 L 01/18/18 02:00 01/18/18 03:00 01/18/18 04:00 Temperature 97.8 F Pulse Rate 96 H 95 H 81 Respiratory Rate 15 15 20 Blood Pressure 144/72 H 141/69 H 107/55 L Pulse Oximetry 93 L 93 L 98 01/18/18 05:00 01/18/18 06:00 01/18/18 07:00 Temperature Pulse Rate 81 85 Respiratory Rate 20 20 Blood Pressure 132/63 146/70 H Pulse Oximetry 100 100 99 01/18/18 08:00 01/18/18 09:00 01/18/18 10:00 Temperature 98.3 F Pulse Rate 97 H 90 93 H Respiratory Rate 18 18 22 Blood Pressure 129/64 115/57 L 114/61 Pulse Oximetry 97 98 99 01/18/18 11:00 Temperature Pulse Rate 94 H Respiratory Rate 17 Blood Pressure 139/72 Pulse Oximetry 99 Intake & Output 01/17/18 01/18/18 01/18/18 18:59 06:59 18:59 Intake Total 300 / 300 Output Total 5900 / 5900 Balance -5600 / -5600 Weight 83 kg Intake: IV 300 / 300 Maxipime Inj 1,000 MG In NS Inj 200 / 200 100 ML @ 200 mls/hr IV.SIG Q12H CHAVO Rx#:[id number] Cubicin Inj 725 MG In NS Inj 100 / 100 100 ML @ 200 mls/hr IV.SIG ONCE ONE Rx#:[id number] Oral 0 / 0 Output: Hemodialysis Amount 5000 / 5000 Urine Amount (Catheter) 900 / 900 Straight 900 / 900 Other: Date of Last Bowel Movement 01/16/18 01/16/18 01/16/18 # Bowel Movements 0 Weight On Admission 82.5 kg Result Diagrams: 01/18/18 05:16 01/18/18 05:16 Other Results: - Constitutional Lying in bed appears to be in no distress. - HEENT Exam Head: normocephalic, atraumatic. Facial puffiness improved Eye: Pupils are equal ENT: Mucous membrane moist airway patent - Routine Neck Exam supple, full ROM. RIJ HD catheter in place - Routine Respiratory Exam No crackles, no diminished air movement - Routine Cardiovascular Exam RRR, S1, S2. Hypotensive with systolic blood pressure in 190s - Routine Abdominal Exam Present: soft, normoactive bowel sounds - Routine Extremities Exam Right hand status post wound debridement. Left lower leg in orthopedic cast - Routine Neurological Exam Present: alert, oriented X3, normal speech. No focal deficits Assessment and Plan - Problem List (1) DKA (diabetic ketoacidoses) Code(s): E13.10 - Other specified diabetes mellitus with ketoacidosis without coma Status: Acute (2) Hypertensive urgency Code(s): I16.0 - Hypertensive urgency Status: Acute (3) Ankle fracture Code(s): S82.899A - Other fracture of unspecified lower leg, initial encounter for closed fracture Status: Acute (4) ESRD (end stage renal disease) Code(s): N18.6 - End stage renal disease Status: Chronic (5) Diabetes mellitus Code(s): E11.9 - Type 2 diabetes mellitus without complications Status: Chronic (6) Hypertension Code(s): I10 - Essential (primary) hypertension Status: Chronic (7) Infection of right hand Code(s): L08.9 - Local infection of the skin and subcutaneous tissue, unspecified Status: Chronic (8) DVT (deep venous thrombosis) Code(s): I82.409 - Acute embolism and thrombosis of unspecified deep veins of unspecified lower extremity Status: Chronic - Assessment and Plan Plan: NEURO: Metabolic encephalopathy-resolved -Minimize sedation -Mild encephalopathy and lethargy most likely secondary to DKA and possible sepsis, now resolved RESP: Respiratory insufficiency Probable healthcare associated pneumonia -DuoNeb every 6 hours scheduled and as needed -Sputum culture -Empiric cefepime and 1 dose of vancomycin 01/17 -Follow up on cultures CV: Hypertensive urgency-resolved Metabolic acidosis-resolving -Continue previous medications including hydralazine, nifedipine and beta blockers -Labetalol as needed for SBP more than 170 -HD per nephrology GI: -N.p.o until nausea vomiting is improved., IV famotidine -Start 1500 ADA diet : End-stage renal disease on hemodialysis -Monitor renal function closely. -HD per nephrology ID: Probable healthcare associated pneumonia Recent right hand infection -Antibiotics with cefepime renally dosed, vancomycin 1 g IV 1 given 01/17/2018 -Follow-up blood and sputum cultures HEME: Right upper extremity DVT -Monitor CBC, coags -Continue apixaban 2.5 twice daily ENDO: Hypocalcemia Early DKA-resolved -Discontinue IV insulin -Start Levemir 5 units subcu every 12, NovoLog 2 units pre-meal, and sliding scale NovoLog -Start diet 30 minutes after Levemir injection -Trend beta hydroxybutyrate if clinically indicated only PROPH: -Right lower extremity SCDs. Apixaban/famotidine LINES: -Utilize peripheral IVs, central line if needed Level 3 Patient is clinically improving. Status glycemic control and blood pressure and DKA has improved. I will consult hospitalist Dr. Lindsey to assume care in a.m. (3) Ankle fracture Qualifiers: Laterality: left (5) Diabetes mellitus Qualifiers: Diabetes mellitus type: type 2 Diabetes mellitus terminal gauger insulin use: with terminal gauger use Diabetes mellitus complication status: with skin complications Diabetes mellitus complication detail: with other skin complication Qualified Code(s): E11.628 - Type 2 diabetes mellitus with other skin complications; Z79.4 - skilled nursing (current) use of insulin (6) Hypertension Qualifiers: Hypertension type: essential hypertension Qualified Code(s): I10 - Essential (primary) hypertension (8) DVT (deep venous thrombosis) Qualifiers: DVT location: upper extremity Laterality: right
[2018-01-18] MEDS: Insulin Detemir Inj 1,000 UNIT/10 ML Vial SQ SCH ×2 (13:47→20:16)
[2018-01-18] MEDS: Insulin NovoLOG Aspart Correctional Sugar Inj SQ SCH ×4 (14:06→22:51)
[2018-01-19] MEDS: Insulin NovoLOG Aspart Correctional Sugar Inj SQ SCH ×8 (02:20→23:14)
[2018-01-19] MEDS: Dextrose 50% in Water 50 ML Vial IV.PUSH PRN (02:36)
[2018-01-19] MEDS: Chlorhexidine Gluconate 2% 1 Pack (2 Cloths) TOPICAL SCH (04:28)
--- NOTE | 2018-01-19 04:34 | XR ---
EXAM DATE: 01/19/2018 4:28 AM EDT AGE/SEX: 52 years / Female INDICATIONS: Shortness of breath, possible pulmonary disease. CLINICAL DATA: This is the patient's subsequent encounter. Patient reports that signs and symptoms h ave been present for 2 days and indicates a pain score of 0/10. MEDICAL/SURGICAL HISTORY: . Renal failure, chronic. Diabetes. Gastroparesis. Hypertension. . . Insulin pump. COMPARISON: C, CHEST 1V SINGLE AP, 01/17/2018. . FINDINGS: Improved basilar consolidation, now mild on the left and essentially resolved on the right. Very smal l left pleural effusion. No pneumothorax. Heart size stable, within normal limits. Tunneled double lumen right IJ central venous catheter with distal tip in the right atrium again note d. CONCLUSION: Right base consolidation has resolved. Much improvement on the left with mild consolidation and small effusions now seen at the left base. Electronically signed by: Williams Haque MD 01/19/2018 4:33 AM EDT
[2018-01-19] MEDS: Levothyroxine 100 MCG Tablet PO SCH (05:08)
[2018-01-19 07:23] LABS: Hematocrit 33.1 % (35.0-46.0); Hemoglobin 10.8 gm/dL (11.6-15.3); Mean Corpuscular HGB Conc 32.5 % (32.0-36.0); Mean Corpuscular Hemoglobin 30.6 pg (27.0-34.0); Mean Corpuscular Volume 94.4 fL (80.0-100.0); Mean Platelet Volume 7.4 fL (7.0-11.0); Platelet Count 371 th/mm3 (150-450); Red Blood Count 3.51 mil/mm3 (4.00-5.30); White Blood Count 8.1 th/mm3 (4.0-11.0)
[2018-01-19 08:06] LABS: Alanine Aminotransferase 10 U/L (10-53); Albumin 3.2 g/dL (3.4-5.0); Alkaline Phosphatase 94 U/L (45-117); Anion Gap 12 meq/L (5-15); Aspartate Aminotransferase 12 U/L (15-37); Blood Urea Nitrogen 38 mg/dL (7-18); Calcium 8.1 mg/dL (8.5-10.1); Carbon Dioxide 27.5 meq/L (21.0-32.0); Chloride 92 meq/L (98-107); Glomerular Filtration Rate 6 mL/min (>89); Glucose,Random 289 mg/dL (74-106); Potassium 3.7 meq/L (3.5-5.1); Sodium 131 meq/L (136-145); Total Protein 6.9 g/dL (6.4-8.2)
--- NOTE | 2018-01-19 09:32 | P.PNGI ---
Subjective Interval history: Pt resting in bed. States she was feeling better yesterday but this morning feels nauseous again, threw up once this morning. Also complaining of abdominal pain, upper abdomen. <Annabella Ch - Last Filed: 01/19/18 14:46> Physical Exam Vital signs: Vital Signs 01/18/18 10:00 01/18/18 11:00 01/18/18 12:00 Temperature 98.6 F Pulse Rate 93 H 94 H 92 H Respiratory Rate 22 17 13 Blood Pressure 114/61 139/72 149/79 H Pulse Oximetry 99 99 98 01/18/18 13:00 01/18/18 14:00 01/18/18 15:00 Temperature Pulse Rate 85 79 86 Respiratory Rate 17 15 15 Blood Pressure 126/66 119/61 126/62 Pulse Oximetry 95 94 L 94 L 01/18/18 16:00 01/18/18 17:00 01/18/18 18:00 Temperature 98.5 F Pulse Rate 89 92 H 93 H Respiratory Rate 15 16 15 Blood Pressure 119/67 140/67 148/79 H Pulse Oximetry 93 L 94 L 94 L 01/18/18 19:00 01/18/18 20:00 01/18/18 21:00 Temperature 98.8 F Pulse Rate 91 H 92 H 98 H Respiratory Rate 17 14 14 Blood Pressure 150/73 H 145/75 H 160/78 H Pulse Oximetry 92 L 92 L 99 01/19/18 00:00 01/19/18 04:00 Temperature 98.6 F 98.1 F Pulse Rate 82 88 Respiratory Rate 24 16 Blood Pressure 137/60 168/85 H Pulse Oximetry 97 100 Intake & Output 01/18/18 01/19/18 01/19/18 18:59 06:59 18:59 Intake Total 240 / 240 960 / 960 Balance 240 / 240 960 / 960 Weight 87.5 kg Intake: Oral 240 / 240 960 / 960 Other: Date of Last Bowel Movement 01/16/18 # Bowel Movements 0 - Constitutional no acute distress - Routine HEENT Exam Head: Present: normocephalic, atraumatic - Routine Respiratory Exam Absent: accessory muscle use - Routine Abdominal Exam Present: soft, normoactive bowel sounds, tenderness (upper abdomen tenderness ) , distended - Routine Skin Exam Present: dry, warm - Routine Neurological Exam Present: alert, oriented X3 - Urinary Catheter Management Straight Cath placed during this visit: no <Annabella Ch - Last Filed: 01/19/18 14:46> Vital signs: Vital Signs 01/18/18 16:00 01/18/18 17:00 01/18/18 18:00 Temperature 98.5 F Pulse Rate 89 92 H 93 H Respiratory Rate 15 16 15 Blood Pressure 119/67 140/67 148/79 H Pulse Oximetry 93 L 94 L 94 L 01/18/18 19:00 01/18/18 20:00 01/18/18 21:00 Temperature 98.8 F Pulse Rate 91 H 92 H 98 H Respiratory Rate 17 14 14 Blood Pressure 150/73 H 145/75 H 160/78 H Pulse Oximetry 92 L 92 L 99 01/19/18 00:00 01/19/18 04:00 01/19/18 08:00 Temperature 98.6 F 98.1 F 98.7 F Pulse Rate 82 88 98 H Respiratory Rate 24 16 18 Blood Pressure 137/60 168/85 H 132/63 Pulse Oximetry 97 100 100 Intake & Output 01/18/18 01/19/18 01/19/18 18:59 06:59 18:59 Intake Total 240 / 240 960 / 960 Output Total 3500 / 3500 Balance 240 / 240 960 / 960 -3500 / -3500 Weight 87.5 kg Intake: Oral 240 / 240 960 / 960 Output: Hemodialysis Amount 3500 / 3500 Other: Date of Last Bowel Movement 01/16/18 # Bowel Movements 0 - Urinary Catheter Management Straight Cath placed during this visit: no <Ishmael Gunn - Last Filed: 01/19/18 15:27> Results - Labs CBC & Chem 7: 01/19/18 06:48 01/19/18 06:48 Laboratory Results - last 24 hr 01/18/18 01/18/18 01/18/18 10:02 11:20 12:26 WBC RBC Hgb Hct MCV MCH MCHC RDW Plt Count MPV Sodium Potassium Chloride Carbon Dioxide Anion Gap BUN Creatinine Estimated GFR POC Glucose 236 H 175 H 148 H Random Glucose Calcium Total Bilirubin AST ALT Alkaline Phosphatase Total Protein Albumin 01/18/18 01/18/18 01/18/18 13:13 14:00 17:09 WBC RBC Hgb Hct MCV MCH MCHC RDW Plt Count MPV Sodium Potassium Chloride Carbon Dioxide Anion Gap BUN Creatinine Estimated GFR POC Glucose 123 H 104 121 H Random Glucose Calcium Total Bilirubin AST ALT Alkaline Phosphatase Total Protein Albumin 01/18/18 01/18/18 01/19/18 19:45 22:46 02:11 WBC RBC Hgb Hct MCV MCH MCHC RDW Plt Count MPV Sodium Potassium Chloride Carbon Dioxide Anion Gap BUN Creatinine Estimated GFR POC Glucose 138 H 204 H 70 Random Glucose Calcium Total Bilirubin AST ALT Alkaline Phosphatase Total Protein Albumin 01/19/18 01/19/18 01/19/18 02:31 03:08 03:29 WBC RBC Hgb Hct MCV MCH MCHC RDW Plt Count MPV Sodium Potassium Chloride Carbon Dioxide Anion Gap BUN Creatinine Estimated GFR POC Glucose 60 L 62 L 59 L Random Glucose Calcium Total Bilirubin AST ALT Alkaline Phosphatase Total Protein Albumin 01/19/18 01/19/18 01/19/18 03:47 04:14 06:48 WBC 8.1 RBC 3.51 L Hgb 10.8 L Hct 33.1 L MCV 94.4 MCH 30.6 MCHC 32.5 RDW 16.0 Plt Count 371 MPV 7.4 Sodium Potassium Chloride Carbon Dioxide Anion Gap BUN Creatinine Estimated GFR POC Glucose 80 122 H Random Glucose Calcium Total Bilirubin AST ALT Alkaline Phosphatase Total Protein Albumin 01/19/18 06:48 WBC RBC Hgb Hct MCV MCH MCHC RDW Plt Count MPV Sodium 131 L Potassium 3.7 Chloride 92 L Carbon Dioxide 27.5 Anion Gap 12 BUN 38 H Creatinine 6.76 H Estimated GFR 6 L POC Glucose Random Glucose 289 H D Calcium 8.1 L Total Bilirubin 0.3 AST 12 L ALT 10 Alkaline Phosphatase 94 Total Protein 6.9 D Albumin 3.2 L Microbiology 01/17/18 18:14 Sputum - Expectorated Sputum Gram Stain - Final 01/17/18 18:14 Sputum - Expectorated Sputum Sputum Culture - Preliminary Immature growth - reincubate 01/17/18 20:40 Blood - Peripheral Aerobic Blood Culture - Preliminary No growth in 1 day 01/17/18 20:40 Blood - Peripheral Anaerobic Blood Culture - Preliminary No growth in 1 day 01/17/18 20:30 Blood - Peripheral Aerobic Blood Culture - Preliminary No growth in 1 day 01/17/18 20:30 Blood - Peripheral Anaerobic Blood Culture - Preliminary No growth in 1 day - Imaging Impressions Chest X-Ray 01/19/18 06:00 CONCLUSION: Right base consolidation has resolved. Much improvement on the left with mild consolidation and small effusions now seen at the left base. <Annabella Ch - Last Filed: 01/19/18 14:46> - Labs CBC & Chem 7: 01/19/18 06:48 01/19/18 06:48 Laboratory Results - last 24 hr 01/18/18 01/18/18 01/18/18 17:09 19:45 22:46 WBC RBC Hgb Hct MCV MCH MCHC RDW Plt Count MPV Sodium Potassium Chloride Carbon Dioxide Anion Gap BUN Creatinine Estimated GFR POC Glucose 121 H 138 H 204 H Random Glucose Calcium Total Bilirubin AST ALT Alkaline Phosphatase Total Protein Albumin 01/19/18 01/19/18 01/19/18 02:11 02:31 03:08 WBC RBC Hgb Hct MCV MCH MCHC RDW Plt Count MPV Sodium Potassium Chloride Carbon Dioxide Anion Gap BUN Creatinine Estimated GFR POC Glucose 70 60 L 62 L Random Glucose Calcium Total Bilirubin AST ALT Alkaline Phosphatase Total Protein Albumin 01/19/18 01/19/18 01/19/18 03:29 03:47 04:14 WBC RBC Hgb Hct MCV MCH MCHC RDW Plt Count MPV Sodium Potassium Chloride Carbon Dioxide Anion Gap BUN Creatinine Estimated GFR POC Glucose 59 L 80 122 H Random Glucose Calcium Total Bilirubin AST ALT Alkaline Phosphatase Total Protein Albumin 01/19/18 01/19/18 01/19/18 06:48 06:48 12:55 WBC 8.1 RBC 3.51 L Hgb 10.8 L Hct 33.1 L MCV 94.4 MCH 30.6 MCHC 32.5 RDW 16.0 Plt Count 371 MPV 7.4 Sodium 131 L Potassium 3.7 Chloride 92 L Carbon Dioxide 27.5 Anion Gap 12 BUN 38 H Creatinine 6.76 H Estimated GFR 6 L POC Glucose 300 H Random Glucose 289 H D Calcium 8.1 L Total Bilirubin 0.3 AST 12 L ALT 10 Alkaline Phosphatase 94 Total Protein 6.9 D Albumin 3.2 L 01/19/18 15:01 WBC RBC Hgb Hct MCV MCH MCHC RDW Plt Count MPV Sodium Potassium Chloride Carbon Dioxide Anion Gap BUN Creatinine Estimated GFR POC Glucose 456 H* Random Glucose Calcium Total Bilirubin AST ALT Alkaline Phosphatase Total Protein Albumin Microbiology 01/17/18 18:14 Sputum - Expectorated Sputum Gram Stain - Final 01/17/18 18:14 Sputum - Expectorated Sputum Sputum Culture - Final Heavy growth normal respiratory baldomero 01/17/18 20:40 Blood - Peripheral Aerobic Blood Culture - Preliminary No growth in 2 days 01/17/18 20:40 Blood - Peripheral Anaerobic Blood Culture - Preliminary No growth in 2 days 01/17/18 20:30 Blood - Peripheral Aerobic Blood Culture - Preliminary No growth in 2 days 01/17/18 20:30 Blood - Peripheral Anaerobic Blood Culture - Preliminary No growth in 2 days - Imaging Impressions Chest X-Ray 01/19/18 06:00 CONCLUSION: Right base consolidation has resolved. Much improvement on the left with mild consolidation and small effusions now seen at the left base. <Ishmael Gunn - Last Filed: 01/19/18 15:27> Assessment and Plan - Plan Assessment: - Known hx of gastroparesis/acute flare- known hx of gastroparesis, s/p gastric pace maker in [facility] yrs ago who's GI dr is Dr. Jimenez, Pt endorses allergies to Reglan. At home, she is on EES and Zofran. Pt states she had a major flare in July of this yr, for which she under went EGD/colonoscopy with Dr. Jimenez with negative findings by report. Pt states she has flares of this. Endorses N/V started Sat. night which continued to Tuesday noon. She is doing good today, able to tolerate diet okay, no more nausea, vomiting or abd pain. Denies diarrhea, melena or hematochezia - Anemia- likely anemia of chronic dz, no bleeding, s/p negative EGD/ colonoscopy with Dr. Jimenez in July - recent left distal tibia fracture for which she underwent IM nail fixation . - hx of DM, ESRD per attending (01/19) Pt transferred from [place] to ICU two days ago for uncontrolled blood sugars. BGL now controlled. Pt has not been restarted on EES since transfer from [place]. States that her gastroparesis flares normally resolve with EES And Morphine. CT abdomen and pelvis W IV contrast repeated yesterday with no acute findings. Pt reports nausea with one episode of emesis this morning. Still having abdominal pain Plan: EGD tomorrow Obtain consent NPO after MN Eliquis placed on hold HIDA scan- family hx of gallbladder issues Restart EES Antiemetics PRN Smaller meals BGL control Maintain bowel regimen Consideration for Amitiza/Linzess OP Can consider EGD with Botox, pt is on Eliquis, this would have to be discontinued Further recommendations pending clinical course, hope to see improvement with EES Pt has been seen and examined by myself and Dr. Gunn and this note is written on his behalf <Annabella Ch - Last Filed: 01/19/18 14:46> - Plan Seen and examined with RESIDUE FURNACE OPERATOR, still with nausea and abdominal pain. HIDA scan and egd tomorrow. Hold eliquis for now The exam, history, and the medical decision-making described in the above note were completed with the assistance of the mid-level provider. I reviewed and agree with the findings presented. I attest that I had a [id number] encounter with the patient on the same day, and personally performed and documented my assessment and findings in the medical record. <Ishmael Gunn - Last Filed: 01/19/18 15:27>
--- NOTE | 2018-01-19 13:06 | P.PNNP ---
Subjective Interval history: Seen during dialysis. She is off the insulin gtt. Still nauseated, ate small amount yesterday but vomited after. <Alethea Moreno - Last Filed: 01/19/18 12:58> Physical Exam Vital signs: Vital Signs 01/18/18 13:00 01/18/18 14:00 01/18/18 15:00 Temperature Pulse Rate 85 79 86 Respiratory Rate 17 15 15 Blood Pressure 126/66 119/61 126/62 Pulse Oximetry 95 94 L 94 L 01/18/18 16:00 01/18/18 17:00 01/18/18 18:00 Temperature 98.5 F Pulse Rate 89 92 H 93 H Respiratory Rate 15 16 15 Blood Pressure 119/67 140/67 148/79 H Pulse Oximetry 93 L 94 L 94 L 01/18/18 19:00 01/18/18 20:00 01/18/18 21:00 Temperature 98.8 F Pulse Rate 91 H 92 H 98 H Respiratory Rate 17 14 14 Blood Pressure 150/73 H 145/75 H 160/78 H Pulse Oximetry 92 L 92 L 99 01/19/18 00:00 01/19/18 04:00 01/19/18 08:00 Temperature 98.6 F 98.1 F 98.7 F Pulse Rate 82 88 98 H Respiratory Rate 24 16 18 Blood Pressure 137/60 168/85 H 132/63 Pulse Oximetry 97 100 100 Intake & Output 01/18/18 01/19/18 01/19/18 18:59 06:59 18:59 Intake Total 240 / 240 960 / 960 Balance 240 / 240 960 / 960 Weight 87.5 kg Intake: Oral 240 / 240 960 / 960 Other: Date of Last Bowel Movement 01/16/18 # Bowel Movements 0 - Constitutional mild distress, obese, chronically ill appearing, somnolent - Routine Neck Exam Present: supple, full ROM - Routine Respiratory Exam Present: CTA bilaterally. Absent: accessory muscle use - Routine Cardiovascular Exam Present: S1, S2. Absent: murmur - Routine Abdominal Exam Present: soft, normoactive bowel sounds - Routine Extremities Exam Present: edema, vascular access Comments: LLE splinted Right hand bandaged - Routine Skin Exam Present: dry, warm - Routine Neurological Exam Present: alert, oriented X3, CN II-XII intact, moving all extremities - Detailed Neurological Exam: Coma Scale Eye Opening: Spontaneous Verbal Response: Oriented Motor Response: Obey commands [place] Coma Scale Total: 15 - Routine Psychiatric Exam Present: normal affect, normal thought process - Urinary Catheter Management Straight Cath placed during this visit: no <Alethea Moreno - Last Filed: 01/19/18 12:58> Vital signs: Vital Signs 01/18/18 19:00 01/18/18 20:00 01/18/18 21:00 Temperature 98.8 F Pulse Rate 91 H 92 H 98 H Respiratory Rate 17 14 14 Blood Pressure 150/73 H 145/75 H 160/78 H Pulse Oximetry 92 L 92 L 99 01/19/18 00:00 01/19/18 04:00 01/19/18 08:00 Temperature 98.6 F 98.1 F 98.7 F Pulse Rate 82 88 98 H Respiratory Rate 24 16 18 Blood Pressure 137/60 168/85 H 132/63 Pulse Oximetry 97 100 100 01/19/18 12:00 01/19/18 16:00 Temperature 98.8 F 98 F Pulse Rate 111 H 84 Respiratory Rate 16 18 Blood Pressure 139/69 101/58 L Pulse Oximetry 98 98 Intake & Output 01/18/18 01/19/18 01/19/18 18:59 06:59 18:59 Intake Total 240 / 240 960 / 960 Output Total 3500 / 3500 Balance 240 / 240 960 / 960 -3500 / -3500 Weight 87.5 kg Intake: Oral 240 / 240 960 / 960 Output: Hemodialysis Amount 3500 / 3500 Other: Date of Last Bowel Movement 01/16/18 # Bowel Movements 0 - Urinary Catheter Management Straight Cath placed during this visit: no <Bobo Alvarado - Last Filed: 01/19/18 18:23> Assessment and Plan - Assessment (1) ESRD (end stage renal disease) Code(s): N18.6 - End stage renal disease Status: Chronic Plan: HD TTS. Seen during HD today on a 3K, 350 BFR< goal 3.5L. Avoid IVF administration. PermCath for HD use only. Fluid removal as tolerated. She still makes urine. High protein diet when able to eat. Repeat labs intermittently. On Renvela with meals. Intermittently monitor phosphorus level. (2) DKA (diabetic ketoacidoses) Code(s): E13.10 - Other specified diabetes mellitus with ketoacidosis without coma Status: Acute Plan: Off insulin gtt. Anion gap is closed. Diet advanced. (3) Diabetes mellitus Code(s): E11.9 - Type 2 diabetes mellitus without complications Status: Chronic Qualifiers: Diabetes mellitus type: type 2 Diabetes mellitus joint terminal attack controller insulin use: with joint terminal attack controller use Diabetes mellitus complication status: with skin complications Diabetes mellitus complication detail: with other skin complication Qualified Code(s): E11.628 - Type 2 diabetes mellitus with other skin complications; Z79.4 - terminal carman (current) use of insulin Plan: Resolving DKA See above. (4) Hypertension Code(s): I10 - Essential (primary) hypertension Status: Chronic Qualifiers: Hypertension type: essential hypertension Qualified Code(s): I10 - Essential (primary) hypertension Plan: Continue medications as ordered. (5) Anemia of renal disease Code(s): D63.1 - Anemia in chronic kidney disease Status: Acute Plan: Epogen not required. Hb is acceptable. (6) Infection of right hand Code(s): L08.9 - Local infection of the skin and subcutaneous tissue, unspecified Status: Chronic Plan: On cefepime. Possible HCAP per imaging. (7) DVT (deep venous thrombosis) Code(s): I82.409 - Acute embolism and thrombosis of unspecified deep veins of unspecified lower extremity Status: Chronic Qualifiers: DVT location: upper extremity Laterality: right Plan: On Apixaban, renal dose. (8) Gastroparesis Code(s): K31.84 - Gastroparesis Status: Acute Plan: GI is following. There is discussion about EGD with Botox. Gastric pacemaker in place. Also on erythromycin. Antiemetics as needed, small meals recommended. <Alethea Moreno - Last Filed: 01/19/18 12:58> - Assessment (1) ESRD (end stage renal disease) Code(s): N18.6 - End stage renal disease Status: Chronic (2) DKA (diabetic ketoacidoses) Code(s): E13.10 - Other specified diabetes mellitus with ketoacidosis without coma Status: Acute (3) Diabetes mellitus Code(s): E11.9 - Type 2 diabetes mellitus without complications Status: Chronic Qualifiers: Diabetes mellitus type: type 2 Diabetes mellitus detention insulin use: with joint terminal attack controller use Diabetes mellitus complication status: with skin complications Diabetes mellitus complication detail: with other skin complication Qualified Code(s): E11.628 - Type 2 diabetes mellitus with other skin complications; Z79.4 - terminal carman (current) use of insulin (4) Hypertension Code(s): I10 - Essential (primary) hypertension Status: Chronic Qualifiers: Hypertension type: essential hypertension Qualified Code(s): I10 - Essential (primary) hypertension (5) Anemia of renal disease Code(s): D63.1 - Anemia in chronic kidney disease Status: Acute (6) Infection of right hand Code(s): L08.9 - Local infection of the skin and subcutaneous tissue, unspecified Status: Chronic (7) DVT (deep venous thrombosis) Code(s): I82.409 - Acute embolism and thrombosis of unspecified deep veins of unspecified lower extremity Status: Chronic Qualifiers: DVT location: upper extremity Laterality: right (8) Gastroparesis Code(s): K31.84 - Gastroparesis Status: Acute - Attending Attestation patient was seen and examined. Very brittle type 1 diabetes, difficult to control. Dialysis will be continued TTS for now. <Bobo Alvarado - Last Filed: 01/19/18 18:23>
[2018-01-19] MEDS: Insulin Detemir Inj 1,000 UNIT/10 ML Vial SQ SCH ×2 (15:12→20:16)
[2018-01-19] MEDS: hydrALAZINE 25 MG Tablet PO SCH ×4 (15:12→21:01)
[2018-01-19] MEDS: Famotidine 20 MG Tablet PO SCH ×2 (15:13→20:16)
[2018-01-19] MEDS: Metoprolol Tartrate 50 MG Tablet PO SCH ×2 (15:13→21:10)
[2018-01-19] MEDS: Senna/Docusate Sodium 8.6/50 MG Tablet PO SCH ×2 (15:14→20:16)
[2018-01-19] MEDS: Erythromycin Ethylsuccinate Susp 400 MG/5ML 100 ML Bottle PO SCH ×2 (15:28→18:30)
--- NOTE | 2018-01-19 15:28 | P.PNFP ---
Subjective Interval history: good overnight will need endocrinology consult for insuline pump Results - Labs Result diagrams: 01/19/18 06:48 01/19/18 06:48 Abnormal lab results 01/18/18 01/18/18 01/18/18 Range/Units 17:09 19:45 22:46 RBC (4.00-5.30) mil/mm3 Hgb (11.6-15.3) gm/dL Hct (35.0-46.0) % Sodium (136-145) meq/L Chloride (98-107) meq/L BUN (7-18) mg/dL Creatinine (0.50-1.00) mg/dL Estimated GFR (>89) mL/min POC Glucose 121 H 138 H 204 H (68-110) mg/dl Random Glucose (74-106) mg/dL Calcium (8.5-10.1) mg/dL AST (15-37) U/L Albumin (3.4-5.0) g/dL 01/19/18 01/19/18 01/19/18 Range/Units 02:31 03:08 03:29 RBC (4.00-5.30) mil/mm3 Hgb (11.6-15.3) gm/dL Hct (35.0-46.0) % Sodium (136-145) meq/L Chloride (98-107) meq/L BUN (7-18) mg/dL Creatinine (0.50-1.00) mg/dL Estimated GFR (>89) mL/min POC Glucose 60 L 62 L 59 L (68-110) mg/dl Random Glucose (74-106) mg/dL Calcium (8.5-10.1) mg/dL AST (15-37) U/L Albumin (3.4-5.0) g/dL 01/19/18 01/19/18 01/19/18 Range/Units 04:14 06:48 06:48 RBC 3.51 L (4.00-5.30) mil/mm3 Hgb 10.8 L (11.6-15.3) gm/dL Hct 33.1 L (35.0-46.0) % Sodium 131 L (136-145) meq/L Chloride 92 L (98-107) meq/L BUN 38 H (7-18) mg/dL Creatinine 6.76 H (0.50-1.00) mg/dL Estimated GFR 6 L (>89) mL/min POC Glucose 122 H (68-110) mg/dl Random Glucose 289 H D (74-106) mg/dL Calcium 8.1 L (8.5-10.1) mg/dL AST 12 L (15-37) U/L Albumin 3.2 L (3.4-5.0) g/dL 01/19/18 01/19/18 Range/Units 12:55 15:01 RBC (4.00-5.30) mil/mm3 Hgb (11.6-15.3) gm/dL Hct (35.0-46.0) % Sodium (136-145) meq/L Chloride (98-107) meq/L BUN (7-18) mg/dL Creatinine (0.50-1.00) mg/dL Estimated GFR (>89) mL/min POC Glucose 300 H 456 H* (68-110) mg/dl Random Glucose (74-106) mg/dL Calcium (8.5-10.1) mg/dL AST (15-37) U/L Albumin (3.4-5.0) g/dL Short CBC 01/19/18 Range/Units 06:48 WBC 8.1 (4.0-11.0) th/mm3 Hgb 10.8 L (11.6-15.3) gm/dL Hct 33.1 L (35.0-46.0) % Plt Count 371 (150-450) th/mm3 BMP 01/19/18 06:48 Sodium 131 L Potassium 3.7 Chloride 92 L Carbon Dioxide 27.5 BUN 38 H Creatinine 6.76 H Calcium 8.1 L Liver Function 01/19/18 Range/Units 06:48 Total Bilirubin 0.3 (0.2-1.0) mg/dL AST 12 L (15-37) U/L ALT 10 (10-53) U/L Alkaline Phosphatase 94 (45-117) U/L Albumin 3.2 L (3.4-5.0) g/dL - Imaging Impressions Chest X-Ray 01/19/18 06:00 CONCLUSION: Right base consolidation has resolved. Much improvement on the left with mild consolidation and small effusions now seen at the left base. Physical Exam Vital signs: Vital Signs 01/18/18 16:00 01/18/18 17:00 01/18/18 18:00 Temperature 98.5 F Pulse Rate 89 92 H 93 H Respiratory Rate 15 16 15 Blood Pressure 119/67 140/67 148/79 H Pulse Oximetry 93 L 94 L 94 L 01/18/18 19:00 01/18/18 20:00 01/18/18 21:00 Temperature 98.8 F Pulse Rate 91 H 92 H 98 H Respiratory Rate 17 14 14 Blood Pressure 150/73 H 145/75 H 160/78 H Pulse Oximetry 92 L 92 L 99 01/19/18 00:00 01/19/18 04:00 01/19/18 08:00 Temperature 98.6 F 98.1 F 98.7 F Pulse Rate 82 88 98 H Respiratory Rate 24 16 18 Blood Pressure 137/60 168/85 H 132/63 Pulse Oximetry 97 100 100 Intake & Output 01/18/18 01/19/18 01/19/18 18:59 06:59 18:59 Intake Total 240 / 240 960 / 960 Output Total 3500 / 3500 Balance 240 / 240 960 / 960 -3500 / -3500 Weight 87.5 kg Intake: Oral 240 / 240 960 / 960 Output: Hemodialysis Amount 3500 / 3500 Other: Date of Last Bowel Movement 01/16/18 # Bowel Movements 0 - Constitutional no acute distress - Routine HEENT Exam Head: Present: normocephalic, atraumatic Eye: Present: EOMI, PERRL ENT: Present: mucous membranes moist - Routine Respiratory Exam Present: CTA bilaterally - Routine Cardiovascular Exam Present: RRR - Routine Abdominal Exam Present: soft, normoactive bowel sounds - Urinary Catheter Management Straight Cath placed during this visit: no Assessment and Plan - Assessment (1) Diabetes mellitus Code(s): E11.9 - Type 2 diabetes mellitus without complications Status: Chronic Plan: Transferred from Rehab, for early DKA, started on Insulin drip at oversight of tobacco shaker. BS monitored Q1 hour (2) ESRD (end stage renal disease) Code(s): N18.6 - End stage renal disease Status: Chronic Plan: Dialysis Tue/Thur/Sat (3) Hypertension Code(s): I10 - Essential (primary) hypertension Status: Chronic Plan: Cont current medications, Monitor B/P (4) Ankle fracture Code(s): S82.899A - Other fracture of unspecified lower leg, initial encounter for closed fracture Status: Acute Plan: F/U with Ortho on 01/30 (5) Infection of right hand Code(s): L08.9 - Local infection of the skin and subcutaneous tissue, unspecified Status: Chronic Plan: Cont Iv antibiotics, Dsg changes BID (6) DVT (deep venous thrombosis) Code(s): I82.409 - Acute embolism and thrombosis of unspecified deep veins of unspecified lower extremity Status: Chronic Plan: Eliquis 2.5 mg bid - Assessment and Plan endocrinology consult (1) Diabetes mellitus Qualifiers: Diabetes mellitus type: type 2 Diabetes mellitus meterman insulin use: with mcfp use Diabetes mellitus complication status: with skin complications Diabetes mellitus complication detail: with other skin complication Qualified Code(s): E11.628 - Type 2 diabetes mellitus with other skin complications; Z79.4 - keno terminal operator (current) use of insulin (3) Hypertension Qualifiers: Hypertension type: essential hypertension Qualified Code(s): I10 - Essential (primary) hypertension (4) Ankle fracture Qualifiers: Laterality: left (6) DVT (deep venous thrombosis) Qualifiers: DVT location: upper extremity Laterality: right
[2018-01-20] MEDS: Dextrose 50% in Water 50 ML Vial IV.PUSH PRN (01:55)
[2018-01-20] MEDS: Insulin NovoLOG Aspart Correctional Sugar Inj SQ SCH ×8 (02:44→23:56)
[2018-01-20] MEDS: Chlorhexidine Gluconate 2% 1 Pack (2 Cloths) TOPICAL SCH (05:33)
[2018-01-20] MEDS: Levothyroxine 100 MCG Tablet PO SCH (06:21)
--- NOTE | 2018-01-20 09:01 | P.PNFP ---
Subjective Interval history: No complaints this am Scheduled for EGD Sister at bedside <Jhoana Pate - 01/20/18 09:00> Results - Labs Result diagrams: 01/19/18 06:48 01/19/18 06:48 <LindseyMeek - 01/20/18 14:20> Abnormal lab results 01/19/18 01/19/18 01/19/18 Range/Units 15:01 18:09 19:31 POC Glucose 456 H* 331 H 403 H (68-110) mg/dl 01/19/18 01/20/18 01/20/18 Range/Units 22:51 01:50 02:14 POC Glucose 240 H 47 L* 149 H (68-110) mg/dl 01/20/18 01/20/18 01/20/18 Range/Units 05:10 07:32 11:16 POC Glucose 225 H 337 H 427 H (68-110) mg/dl <Meek Lindsey - 01/20/18 14:20> Abnormal lab results 01/19/18 01/19/18 01/19/18 Range/Units 12:55 15:01 18:09 POC Glucose 300 H 456 H* 331 H (68-110) mg/dl 01/19/18 01/19/18 01/20/18 Range/Units 19:31 22:51 01:50 POC Glucose 403 H 240 H 47 L* (68-110) mg/dl 01/20/18 01/20/18 01/20/18 Range/Units 02:14 05:10 07:32 POC Glucose 149 H 225 H 337 H (68-110) mg/dl <Jhoana Pate - 01/20/18 09:00> - Imaging Chest X-Ray 01/17/18 16:02 CONCLUSION: Left lower lobe airspace disease and probable left effusion. Abdomen/Pelvis CT 01/18/18 00:00 CONCLUSION: 1. Mild nonspecific hepatomegaly. 2. Urinary bladder is distended at the time of imaging and please correlate clinically. 3. No other acute abnormality is seen within the abdomen or pelvis. Specifically, no obstruction or acute inflammatory changes. No mass or fluid collection. 4. Small hiatal hernia. 5. Small effusions and mild atelectasis of the visualized lung bases. Chest X-Ray 01/19/18 06:00 CONCLUSION: Right base consolidation has resolved. Much improvement on the left with mild consolidation and small effusions now seen at the left base. <Jhoana Pate - 01/20/18 09:00> Physical Exam Vital signs: Vital Signs 01/19/18 16:00 01/19/18 20:00 01/19/18 21:08 Temperature 98 F 98.7 F Pulse Rate 84 91 H Respiratory Rate 18 14 Blood Pressure 101/58 L 109/57 L Pulse Oximetry 98 98 95 01/20/18 00:00 01/20/18 04:00 01/20/18 08:18 Temperature 98.5 F 98.9 F 98.9 F Pulse Rate 79 91 H 90 Respiratory Rate 16 15 15 Blood Pressure 121/57 L 126/75 124/64 Pulse Oximetry 100 99 94 L 01/20/18 09:00 01/20/18 09:30 01/20/18 11:13 Temperature 98.6 F Pulse Rate 92 H 93 H 94 H Respiratory Rate 20 19 16 Blood Pressure 140/69 142/67 H 147/72 H Pulse Oximetry 92 L 99 99 01/20/18 11:40 Temperature Pulse Rate 96 H Respiratory Rate 16 Blood Pressure 145/66 H Pulse Oximetry 99 Intake & Output 01/19/18 01/20/18 01/20/18 18:59 06:59 18:59 Intake Total 850 / 850 480 / 480 100 / 100 Output Total 7000 / 7000 Balance -6150 / -6150 480 / 480 100 / 100 Weight 82.3 kg Intake: IV 100 / 100 Maxipime Inj 1,000 MG In NS Inj 100 / 100 100 ML @ 200 mls/hr IV.SIG Q24H [facility] Rx#:[id number] Oral 850 / 850 480 / 480 Output: Hemodialysis Amount 7000 / 7000 <Meek Lindsey - 01/20/18 14:20> Vital Signs 01/19/18 12:00 01/19/18 16:00 01/19/18 20:00 Temperature 98.8 F 98 F 98.7 F Pulse Rate 111 H 84 91 H Respiratory Rate 16 18 14 Blood Pressure 139/69 101/58 L 109/57 L Pulse Oximetry 98 98 98 01/19/18 21:08 01/20/18 00:00 01/20/18 04:00 Temperature 98.5 F 98.9 F Pulse Rate 79 91 H Respiratory Rate 16 15 Blood Pressure 121/57 L 126/75 Pulse Oximetry 95 100 99 01/20/18 08:18 Temperature 98.9 F Pulse Rate 90 Respiratory Rate 15 Blood Pressure 124/64 Pulse Oximetry 94 L Intake & Output 01/19/18 01/20/18 01/20/18 18:59 06:59 18:59 Intake Total 850 / 850 480 / 480 100 / 100 Output Total 7000 / 7000 Balance -6150 / -6150 480 / 480 100 / 100 Weight 82.3 kg Intake: IV 100 / 100 Maxipime Inj 1,000 MG In NS Inj 100 / 100 100 ML @ 200 mls/hr IV.SIG Q24H [facility] Rx#:[id number] Oral 850 / 850 480 / 480 Output: Hemodialysis Amount 7000 / 7000 <Jhoana Pate - 01/20/18 09:00> - Constitutional no acute distress <Jhoana Pate - 01/20/18 09:00> - Routine HEENT Exam Eye: Present: PERRL <Jhoana Pate - 01/20/18 09:00> ENT: Present: mucous membranes moist <Jhoana Pate - 01/20/18 09:00> - Routine Neck Exam Present: supple <Jhoana Pate - 01/20/18 09:00> - Routine Respiratory Exam Present: CTA bilaterally <Jhoana Pate - 01/20/18 09:00> - Routine Cardiovascular Exam Present: RRR, S1, S2 <Jhoana Pate - 01/20/18 09:00> - Routine Abdominal Exam Present: soft, normoactive bowel sounds <Jhoana Pate - 01/20/18 09:00> - Routine Extremities Exam Comments: Left LE soft cast <Jhoana Pate - 01/20/18 09:00> - Routine Skin Exam Present: dry, warm <Jhoana Pate 01/20/18 09:00> - Routine Neurological Exam Present: alert, oriented X3 <Jhoana Pate 01/20/18 09:00> - Routine Psychiatric Exam Present: cooperative <Jhoana Pate - 01/20/18 09:00> - Urinary Catheter Management Straight Cath placed during this visit: no <Meek Lindsey - 01/20/18 14:20> no <Jhoana Pate - 01/20/18 09:00> Assessment and Plan - Assessment (1) Diabetes mellitus Code(s): E11.9 - Type 2 diabetes mellitus without complications Status: Chronic (2) ESRD (end stage renal disease) Code(s): N18.6 - End stage renal disease Status: Chronic (3) Hypertension Code(s): I10 - Essential (primary) hypertension Status: Chronic (4) Ankle fracture Code(s): S82.899A - Other fracture of unspecified lower leg, initial encounter for closed fracture Status: Acute (5) Infection of right hand Code(s): L08.9 - Local infection of the skin and subcutaneous tissue, unspecified Status: Chronic (6) DVT (deep venous thrombosis) Code(s): I82.409 - Acute embolism and thrombosis of unspecified deep veins of unspecified lower extremity Status: Chronic (7) PNA (pneumonia) Code(s): J18.9 - Pneumonia, unspecified organism Status: Acute <Meek Lindsey - 01/20/18 14:20> (1) Diabetes mellitus Code(s): E11.9 - Type 2 diabetes mellitus without complications Status: Chronic Plan: Off insulin drip, cont to monitor Blood sugars (2) ESRD (end stage renal disease) Code(s): N18.6 - End stage renal disease Status: Chronic Plan: Dialysis Tue/Thur/Sat (3) Hypertension Code(s): I10 - Essential (primary) hypertension Status: Chronic Plan: Cont current medications, Monitor B/P (4) Ankle fracture Code(s): S82.899A - Other fracture of unspecified lower leg, initial encounter for closed fracture Status: Acute Plan: F/U with Ortho on 01/30 (5) Infection of right hand Code(s): L08.9 - Local infection of the skin and subcutaneous tissue, unspecified Status: Chronic Plan: Cont Iv antibiotics, Dsg changes BID (6) DVT (deep venous thrombosis) Code(s): I82.409 - Acute embolism and thrombosis of unspecified deep veins of unspecified lower extremity Status: Chronic Plan: Eliquis 2.5 mg bid (7) PNA (pneumonia) Code(s): J18.9 - Pneumonia, unspecified organism Status: Acute Plan: Cefepime Q24 <Jhoana Pate - 01/20/18 08:51> - Assessment and Plan pt with EGD today will dc from icu later once awake if stable Hepas to cover 6pm 01/20 untill 6 am 01/24 GRW <Meek Lindsey - 01/20/18 14:20> Endocrinology consult, cancelled no Endocrinologic on staff Will need to follow up outpatient to assist with Insulin pump Scheduled for EGD today Blood sugars have been 47-337 last 24 hours. 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 of insulin (3) Hypertension Qualifiers: Hypertension type: essential hypertension Qualified Code(s): I10 - Essential (primary) hypertension (4) Ankle fracture Qualifiers: Laterality: left (6) DVT (deep venous thrombosis) Qualifiers: DVT location: upper extremity Laterality: right <Meek Lindsey - Last Filed: 01/20/18 14:20> (1) Diabetes mellitus Qualifiers: Diabetes mellitus type: type 2 Diabetes mellitus account installer insulin use: with account installer use Diabetes mellitus complication status: with skin complications Diabetes mellitus complication detail: with other skin complication Qualified Code(s): E11.628 - Type 2 diabetes mellitus with other skin complications; Z79.4 - care home (current) use of insulin (3) Hypertension Qualifiers: Hypertension type: essential hypertension Qualified Code(s): I10 - Essential (primary) hypertension (4) Ankle fracture Qualifiers: Laterality: left (6) DVT (deep venous thrombosis) Qualifiers: DVT location: upper extremity Laterality: right <Jhoana Pate - Last Filed: 01/20/18 08:51> (1) Diabetes mellitus Qualifiers: Diabetes mellitus type: type 2 Diabetes mellitus account installer insulin use: with account installer use Diabetes mellitus complication status: with skin complications Diabetes mellitus complication detail: with other skin complication Qualified Code(s): E11.628 - Type 2 diabetes mellitus with other skin complications; Z79.4 - design engineer agricultural equipment (current) use of insulin (3) Hypertension Qualifiers: Hypertension type: essential hypertension Qualified Code(s): I10 - Essential (primary) hypertension (4) Ankle fracture Qualifiers: Laterality: left (6) DVT (deep venous thrombosis) Qualifiers: DVT location: upper extremity Laterality: right <Meek Lindsey - Last Filed: 01/20/18 14:20> (1) Diabetes mellitus Qualifiers: Diabetes mellitus type: type 2 Diabetes mellitus penitentiary insulin use: with account installer use Diabetes mellitus complication status: with skin complications Diabetes mellitus complication detail: with other skin complication Qualified Code(s): E11.628 - Type 2 diabetes mellitus with other skin complications; Z79.4 - care home (current) use of insulin (3) Hypertension Qualifiers: Hypertension type: essential hypertension Qualified Code(s): I10 - Essential (primary) hypertension (4) Ankle fracture Qualifiers: Laterality: left (6) DVT (deep venous thrombosis) Qualifiers: DVT location: upper extremity Laterality: right
--- NOTE | 2018-01-20 11:23 | GIPROC ---
[facility] [address] [facility]. [facility], [address] EGD PROCEDURE REPORT EXAM DATE: 01/20/2018 PATIENT NAME: Kavita Klein MR #: [id number] BIRTHDATE: 1965 ATTENDING: Ishmael Gunn MD ORDER #: [id number] [employer] F[employer]KE MILLER: Karla Nj and Sofi Burkett STATUS: inpatient INDICATIONS: The patient is a 52 yr old female here for an EGD due to epigastric abdominal pain and iron deficiency anemia PROCEDURE PERFORMED: EGD w/ biopsy MEDICATIONS: Per Anesthesia and None. TOPICAL ANESTHETIC: CONSENT: The patient understands the risks and benefits of the procedure and understands that these risks include, but are not limited to: sedation, allergic reaction, infection, perforation and/or bleeding. Alternative means of evaluation and treatment include, among others: physical exam, x-rays, and/or surgical intervention. The patient elects to proceed with this endoscopic procedure. medical equipment was checked for proper function. Hand hygiene and appropriate measures for infection prevention was taken. After the risks, benefits and alternatives of the procedure were thoroughly explained, Informed consent was verified, confirmed and timeout was successfully executed by the treatment team. The patient was anesthetized with topical anesthesia and the Pentax [id number] endoscope was introduced through the mouth and advanced to the second portion of the duodenum. Retroflexed views revealed no abnormalities The gastroscope was then slowly withdrawn and removed. ESOPHAGUS: There was LA Class A esophagitis noted. A biopsy was performed using cold forceps. Sample sent for histology. STOMACH: There was erythematous moderate gastritis in the gastric antrum. A biopsy was performed using cold forceps. Sample sent for histology. DUODENUM: The duodenal mucosa appeared normal in the bulb and second portion of the duodenum. ADVERSE EVENTS: There were no complications. IMPRESSIONS: 1. There was LA Class A esophagitis noted; biopsy was performed 2. There was erythematous gastritis in the gastric antrum; biopsy was performed 3. Normal duodenal mucosa in the bulb and second portion of the duodenum 4. Retroflexed views revealed no abnormalities RECOMMENDATIONS: 1. Await biopsy results. Biopsy results will not be ready for 7-10 days. If you don't hear from us in two weeks, call our office for biopsy results. 2. Anti-reflux regimen 3. Continue PPI PATIENT CONDITION: stable DISPOSITION: Inpatient REPEAT EXAM: Return 1 year EGD pending biopsy results Ishmael Gunn MD eSigned: Ishmael Gunn MD 01/20/2018 11:22 AM cc: PATIENT NAME: Latoya Kavita Fox MR#: [id number]
[2018-01-20] MEDS ORDERED: Phenylephrine/NS 1000 MCG/10ML Syringe IV.PUSH ONE (12:00)
[2018-01-20] MEDS ORDERED: Lidocaine PF 1% Inj 5 ML Syringe INFILTRATN ONE (12:00)
[2018-01-20] MEDS ORDERED: Succinylcholine Inj 100 MG/5 ML Syringe IV.PUSH ONE (12:00)
[2018-01-20] MEDS: hydrALAZINE 25 MG Tablet PO SCH ×3 (13:01→21:32)
[2018-01-20] MEDS: Metoprolol Tartrate 50 MG Tablet PO SCH ×2 (13:02→21:32)
[2018-01-20] MEDS: Erythromycin Ethylsuccinate Susp 400 MG/5ML 100 ML Bottle PO SCH ×3 (13:02→17:33)
[2018-01-20] MEDS: Insulin Detemir Inj 1,000 UNIT/10 ML Vial SQ SCH ×2 (13:02→21:32)
[2018-01-20] MEDS: Famotidine 20 MG Tablet PO SCH ×2 (13:03→21:31)
[2018-01-20] MEDS: Senna/Docusate Sodium 8.6/50 MG Tablet PO SCH ×2 (13:03→21:32)
[2018-01-20] MEDS ORDERED: Sincalide Inj 5 MCG Vial IV.PUSH ONE (14:10)
--- NOTE | 2018-01-20 16:21 | NM ---
EXAM DATE: 01/20/2018 4:12 PM EDT AGE/SEX: 52 years / Female INDICATIONS: Upper abdominal pain with nausea and vomiting. CLINICAL DATA: This is the patient's subsequent encounter. Patient reports that signs and symptoms h ave been present for > 1 year and indicates a pain score of 5/10. MEDICAL/SURGICAL HISTORY: Diabetes. Renal disease, end stage. Gastroparesis. Insulin pump in place, diabetic neuropathy, hypertension. . Status post debridement. Upper endoscopy. COMPARISON: No prior exams available for comparison. DOSE: 3.7 mCi Tc-99m mebrofenin i.v. Medication: 1.75 mcg Cholecystokinin IV No symptomatic response Cholecystokinin was administered by slow infusion over 8 minutes beginning at 76 minutes. TECHNIQUE: Following the intravenous administration of radiotracer, dynamic sequential images were pe rformed with continuous acquisition. Time-activity curves were generated. FINDINGS: Hepatic Kinetics: There is prompt uptake of radiotracer in the liver. No focal defects are seen. Ther e is normal rate of washout from the hepatic parenchyma. Biliary Clearance: Activity is first seen in the extrahepatic biliary system at 15 minutes. There is normal excretion into the small bowel. Gallbladder: Activity is first seen in the gallbladder at 50 minutes. Post-CCK: After CCK administration, there is emptying of the gallbladder with a 50% ejection fraction . Common bile duct kinetics are normal and there is no evidence of biliary obstruction. No symptomat ic response after cholecystokinin infusion. Biliary-Enteric Reflux: There is biliary gastric reflux following CCK administration which is a nonsp ecific finding. CONCLUSION: 1. Negative biliary scan Electronically signed by: Timothy Solis MD 01/20/2018 4:20 PM EDT
[2018-01-21] MEDS: Insulin NovoLOG Aspart Correctional Sugar Inj SQ SCH ×9 (03:42→22:00)
[2018-01-21] MEDS: Chlorhexidine Gluconate 2% 1 Pack (2 Cloths) TOPICAL SCH (05:26)
[2018-01-21] MEDS: Morphine Sulfate Inj 2 MG/ML Vial IV.PUSH PRN ×2 (06:30→12:26)
[2018-01-21] MEDS: Levothyroxine 100 MCG Tablet PO SCH (06:32)
[2018-01-21 06:45] LABS: Hemoglobin 10.8 gm/dL (11.6-15.3); Mean Corpuscular HGB Conc 32.6 % (32.0-36.0); Mean Corpuscular Hemoglobin 30.4 pg (27.0-34.0); Mean Corpuscular Volume 93.4 fL (80.0-100.0); Mean Platelet Volume 7.6 fL (7.0-11.0); Platelet Count 320 th/mm3 (150-450); Red Blood Count 3.54 mil/mm3 (4.00-5.30); Red Cell Distribution Width 15.2 % (11.6-17.2); White Blood Count 8.4 th/mm3 (4.0-11.0)
[2018-01-21 06:52] LABS: Calcium 8.2 mg/dL (8.5-10.1); Carbon Dioxide 24.9 meq/L (21.0-32.0); Potassium 3.9 meq/L (3.5-5.1)
[2018-01-21] MEDS: Metoprolol Tartrate 50 MG Tablet PO SCH ×2 (08:00→20:52)
[2018-01-21] MEDS: hydrALAZINE 25 MG Tablet PO SCH ×4 (08:00→20:53)
[2018-01-21] MEDS: Senna/Docusate Sodium 8.6/50 MG Tablet PO SCH ×2 (08:01→20:54)
[2018-01-21] MEDS: Famotidine 20 MG Tablet PO SCH ×2 (08:01→20:50)
--- NOTE | 2018-01-21 09:41 | P.PNNP ---
Subjective Interval history: Seen on HD, tolerating HD well Physical Exam Vital signs: Vital Signs 01/20/18 11:13 01/20/18 11:40 01/20/18 16:00 Temperature 98.6 F 98.8 F Pulse Rate 94 H 96 H 97 H Respiratory Rate 16 16 18 Blood Pressure 147/72 H 145/66 H 169/81 H Pulse Oximetry 99 99 99 01/20/18 19:20 01/20/18 20:00 01/21/18 00:00 Temperature 98.6 F 99 F Pulse Rate 84 103 H 83 Respiratory Rate 17 16 Blood Pressure 165/79 H 167/80 H Pulse Oximetry 97 95 01/21/18 04:00 01/21/18 04:10 01/21/18 06:44 Temperature 98.4 F Pulse Rate 82 Respiratory Rate 16 18 Blood Pressure 217/95 H 202/91 H Pulse Oximetry 97 Intake & Output 01/20/18 01/21/18 01/21/18 18:59 06:59 18:59 Intake Total 700 / 700 480 / 480 100 / 100 Balance 700 / 700 480 / 480 100 / 100 Weight 84.8 kg Intake: IV 100 / 100 100 / 100 Maxipime Inj 1,000 MG In NS Inj 100 / 100 100 / 100 100 ML @ 200 mls/hr IV.SIG Q24H [facility] Rx#:[id number] Oral 600 / 600 480 / 480 Other: # Voids 0 Date of Last Bowel Movement 01/20/18 01/20/18 # Bowel Movements 1 0 - Constitutional no acute distress - Routine HEENT Exam Head: Present: normocephalic Eye: Present: EOMI ENT: Present: mucous membranes moist - Routine Neck Exam Present: supple - Routine Respiratory Exam Present: decreased breath sounds - Routine Cardiovascular Exam Present: RRR - Routine Abdominal Exam Present: soft - Routine Extremities Exam Present: vascular access - Routine Skin Exam Present: intact - Routine Neurological Exam Present: alert, oriented X3 - Detailed Neurological Exam: Coma Scale Eye Opening: Spontaneous - Routine Psychiatric Exam Present: normal affect - Urinary Catheter Management Straight Cath placed during this visit: no Assessment and Plan - Assessment (1) ESRD (end stage renal disease) Code(s): N18.6 - End stage renal disease Status: Chronic Plan: HD TTS. Seen on HD today, tolerating HD well Avoid IVF administration. PermCath for HD use only. Fluid removal as tolerated. She still makes urine. High protein diet when able to eat. Repeat labs intermittently. On Renvela with meals. Intermittently monitor phosphorus level. (2) DKA (diabetic ketoacidoses) Code(s): E13.10 - Other specified diabetes mellitus with ketoacidosis without coma Status: Acute Plan: Off insulin gtt. Anion gap is closed. Diet advanced. 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 (4) Hypertension Code(s): I10 - Essential (primary) hypertension Status: Chronic Qualifiers: Hypertension type: essential hypertension Qualified Code(s): I10 - Essential (primary) hypertension Plan: Continue medications as ordered. SBP 200s last night, however SBP 120s on HD. Pain issues last night with back pains - continue to monitor, given morphine last night (5) Anemia of renal disease Code(s): D63.1 - Anemia in chronic kidney disease Status: Acute Plan: Epogen not required. Hb is acceptable. (6) Infection of right hand Code(s): L08.9 - Local infection of the skin and subcutaneous tissue, unspecified Status: Chronic Plan: On cefepime. Possible HCAP per imaging. (7) DVT (deep venous thrombosis) Code(s): I82.409 - Acute embolism and thrombosis of unspecified deep veins of unspecified lower extremity Status: Chronic Qualifiers: DVT location: upper extremity Laterality: right Plan: On Apixaban, renal dose. (8) Gastroparesis Code(s): K31.84 - Gastroparesis Status: Acute Plan: GI is following. EGD yesterday with gastritis, esophagitis. Gastric pacemaker in place. Also on erythromycin. Antiemetics as needed, small meals recommended.
[2018-01-21] MEDS: Erythromycin Ethylsuccinate Susp 400 MG/5ML 100 ML Bottle PO SCH ×3 (10:15→18:40)
[2018-01-21] MEDS: Insulin Detemir Inj 1,000 UNIT/10 ML Vial SQ SCH ×2 (12:41→22:00)
--- NOTE | 2018-01-21 14:45 | P.PNGI ---
Subjective Interval history: Feeling better and tolerating diet well. Physical Exam Vital signs: Vital Signs 01/20/18 16:00 01/20/18 19:20 01/20/18 20:00 Temperature 98.8 F 98.6 F Pulse Rate 97 H 84 103 H Respiratory Rate 18 17 Blood Pressure 169/81 H 165/79 H Pulse Oximetry 99 97 01/21/18 00:00 01/21/18 04:00 01/21/18 04:10 Temperature 99 F 98.4 F Pulse Rate 83 82 Respiratory Rate 16 16 Blood Pressure 167/80 H 217/95 H 202/91 H Pulse Oximetry 95 97 01/21/18 06:44 01/21/18 08:00 01/21/18 12:00 Temperature 96.6 F L Pulse Rate 80 90 Respiratory Rate 18 Blood Pressure 145/77 H Pulse Oximetry 97 01/21/18 12:30 Temperature Pulse Rate 91 H Respiratory Rate Blood Pressure Pulse Oximetry Intake & Output 01/20/18 01/21/18 01/21/18 18:59 06:59 18:59 Intake Total 700 / 700 480 / 480 100 / 100 Output Total 3800 / 3800 Balance 700 / 700 480 / 480 -3700 / -3700 Weight 84.8 kg Intake: IV 100 / 100 100 / 100 Maxipime Inj 1,000 MG In NS Inj 100 / 100 100 / 100 100 ML @ 200 mls/hr IV.SIG Q24H [facility] Rx#:[id number] Oral 600 / 600 480 / 480 Output: Hemodialysis Amount 3800 / 3800 Other: # Voids 0 Date of Last Bowel Movement 01/20/18 01/20/18 # Bowel Movements 1 0 - Urinary Catheter Management Straight Cath placed during this visit: no Results - Labs CBC & Chem 7: 01/21/18 05:54 01/21/18 05:54 Laboratory Results - last 24 hr 01/20/18 01/20/18 01/20/18 17:25 20:21 23:53 WBC RBC Hgb Hct MCV MCH MCHC RDW Plt Count MPV Sodium Potassium Chloride Carbon Dioxide Anion Gap BUN Creatinine Estimated GFR POC Glucose 439 H 364 H 266 H Random Glucose Calcium 01/21/18 01/21/18 01/21/18 02:30 05:54 05:54 WBC 8.4 RBC 3.54 L Hgb 10.8 L Hct 33.0 L MCV 93.4 MCH 30.4 MCHC 32.6 RDW 15.2 Plt Count 320 MPV 7.6 Sodium 131 L Potassium 3.9 Chloride 90 L Carbon Dioxide 24.9 Anion Gap 16 H BUN 46 H Creatinine 6.47 H Estimated GFR 7 L POC Glucose 191 H Random Glucose 332 H Calcium 8.2 L 01/21/18 01/21/18 01/21/18 06:12 07:37 08:45 WBC RBC Hgb Hct MCV MCH MCHC RDW Plt Count MPV Sodium Potassium Chloride Carbon Dioxide Anion Gap BUN Creatinine Estimated GFR POC Glucose 361 H 316 H 177 H Random Glucose Calcium Microbiology 01/17/18 20:40 Blood - Peripheral Aerobic Blood Culture - Preliminary No growth in 4 days 01/17/18 20:40 Blood - Peripheral Anaerobic Blood Culture - Preliminary No growth in 4 days 01/17/18 20:30 Blood - Peripheral Aerobic Blood Culture - Preliminary No growth in 4 days 01/17/18 20:30 Blood - Peripheral Anaerobic Blood Culture - Preliminary No growth in 4 days - Imaging Impressions Bile Acid Absorption NM 01/20/18 00:00 CONCLUSION: 1. Negative biliary scan Assessment and Plan - Plan Assessment: - Known hx of gastroparesis/acute flare- known hx of gastroparesis, s/p gastric pace maker in [facility] 5 yrs ago who's GI dr is Dr. Jimenez, Pt endorses allergies to Reglan. At home, she is on EES and Zofran. Pt states she had a major flare in July of this yr, for which she under went EGD/colonoscopy with Dr. Jimenez with negative findings by report. Pt states she has flares of this. Endorses N/V started Sat. night which continued to Tuesday noon. She is doing good today, able to tolerate diet okay, no more nausea, vomiting or abd pain. Denies diarrhea, melena or hematochezia - Anemia- likely anemia of chronic dz, no bleeding, s/p negative EGD/ colonoscopy with Dr. Jimenez in July - recent left distal tibia fracture for which she underwent IM nail fixation . - hx of DM, ESRD per attending (01/19) Pt transferred from [place] to ICU two days ago for uncontrolled blood sugars. BGL now controlled. Pt has not been restarted on EES since transfer from [place]. States that her gastroparesis flares normally resolve with EES And Morphine. CT abdomen and pelvis W IV contrast repeated yesterday with no acute findings. Pt reports nausea with one episode of emesis this morning. Still having abdominal pain HIDA Scan negative for biliary dyskinesia. Plan: Small frequent low fat meals Resume Eliquis and other meds if needed. BGL control Maintain bowel regimen Consideration for Amitiza/Linzess OP Further recommendations pending clinical course, hope to see improvement with EES
[2018-01-21] MEDS ORDERED: Morphine Inj 4 MG/ML Vial IV.PUSH PRN (17:30)
--- NOTE | 2018-01-21 17:34 | P.PNIM ---
Subjective Interval history: Patient is resting comfortably in bed following dialysis. She complains of back pain and uncontrolled blood sugars. Physical Exam Vital signs: Vital Signs 01/20/18 19:20 01/20/18 20:00 01/21/18 00:00 Temperature 98.6 F 99 F Pulse Rate 84 103 H 83 Respiratory Rate 17 16 Blood Pressure 165/79 H 167/80 H Pulse Oximetry 97 95 01/21/18 04:00 01/21/18 04:10 01/21/18 06:44 Temperature 98.4 F Pulse Rate 82 Respiratory Rate 16 18 Blood Pressure 217/95 H 202/91 H Pulse Oximetry 97 01/21/18 08:00 01/21/18 12:00 01/21/18 12:30 Temperature 96.6 F L Pulse Rate 80 90 91 H Respiratory Rate Blood Pressure 145/77 H Pulse Oximetry 97 01/21/18 16:00 01/21/18 16:42 Temperature 98.1 F Pulse Rate 88 94 H Respiratory Rate 19 Blood Pressure 158/89 H Pulse Oximetry 97 Intake & Output 01/20/18 01/21/18 01/21/18 18:59 06:59 18:59 Intake Total 700 / 700 480 / 480 100 / 100 Output Total 3800 / 3800 Balance 700 / 700 480 / 480 -3700 / -3700 Weight 84.8 kg Intake: IV 100 / 100 100 / 100 Maxipime Inj 1,000 MG In NS Inj 100 / 100 100 / 100 100 ML @ 200 mls/hr IV.SIG Q24H [facility] Rx#:[id number] Oral 600 / 600 480 / 480 Output: Hemodialysis Amount 3800 / 3800 Other: # Voids 0 Date of Last Bowel Movement 01/20/18 01/20/18 # Bowel Movements 1 0 Narrative: GENERAL: AAOx3, complains of back pain SKIN: Warm and dry. No rashes HEAD: Atruamtic, normocephalic. EYES: No scleral icterus. No injection or drainage. ENT: Moist mucous membranes, patent nares, no erythema of oropharynx. NECK: Supple, trachea midline. No JVD or lymphadenopathy. Normal thyroid. CARDIOVASCULAR: Regular rate and rhythm. No murmurs, gallops, or rubs. RESPIRATORY: Breath sounds clear equal bilaterally. No crackles or wheezes. No accessory muscle use. GASTROINTESTINAL: Abdomen soft, non-tender, nondistended, normal active bowel sounds MUSCULOSKELETAL: Soft cast on left legs NEURO: CN II-XII grossly intact, no focal deficits, no slurring of speech - Urinary Catheter Management Straight Cath placed during this visit: no Results - Labs CBC & Chem 7: 01/21/18 05:54 01/21/18 05:54 Laboratory Results - last 24 hr 01/20/18 01/20/18 01/20/18 17:25 20:21 23:53 WBC RBC Hgb Hct MCV MCH MCHC RDW Plt Count MPV Sodium Potassium Chloride Carbon Dioxide Anion Gap BUN Creatinine Estimated GFR POC Glucose 439 H 364 H 266 H Random Glucose Calcium 01/21/18 01/21/18 01/21/18 02:30 05:54 05:54 WBC 8.4 RBC 3.54 L Hgb 10.8 L Hct 33.0 L MCV 93.4 MCH 30.4 MCHC 32.6 RDW 15.2 Plt Count 320 MPV 7.6 Sodium 131 L Potassium 3.9 Chloride 90 L Carbon Dioxide 24.9 Anion Gap 16 H BUN 46 H Creatinine 6.47 H Estimated GFR 7 L POC Glucose 191 H Random Glucose 332 H Calcium 8.2 L 01/21/18 01/21/18 01/21/18 06:12 07:37 08:45 WBC RBC Hgb Hct MCV MCH MCHC RDW Plt Count MPV Sodium Potassium Chloride Carbon Dioxide Anion Gap BUN Creatinine Estimated GFR POC Glucose 361 H 316 H 177 H Random Glucose Calcium Microbiology 01/17/18 20:40 Blood - Peripheral Aerobic Blood Culture - Preliminary No growth in 4 days 01/17/18 20:40 Blood - Peripheral Anaerobic Blood Culture - Preliminary No growth in 4 days 01/17/18 20:30 Blood - Peripheral Aerobic Blood Culture - Preliminary No growth in 4 days 01/17/18 20:30 Blood - Peripheral Anaerobic Blood Culture - Preliminary No growth in 4 days Assessment and Plan - Plan End-stage renal disease Tolerating dialysis well, Tuesdays//Saturdays Consider timing on discharge Type 2 diabetes Accu-Cheks with sliding scale insulin coverage Patient is poorly controlled on Q3h Accu-Cheks, change to ACHS Patient will plan to follow-up outpatient status to endocrinology to discuss insulin pump Diabetic diet Ankle fracture Follow-up scheduled with orthopedics on January 30 Hypertension Continue home meds Right hand infection Continue dressing changes twice daily Continue IV antibiotics gentamicin Pneumonia versus effusion Patient is afebrile, white blood cell count normal, no cough Consider fluid overload and pleural effusion Continue cefepime empiric coverage every 24 hours Chronic DVT Continue Eliquis 2.5 mg twice daily HEPAS requested to provide coverage until 6am on Jan 24.
[2018-01-21] MEDS ORDERED: ALPRAZolam 0.25 MG Tablet PO ONE (22:20)
[2018-01-22] MEDS: Chlorhexidine Gluconate 2% 1 Pack (2 Cloths) TOPICAL SCH (04:59)
[2018-01-22] MEDS: Levothyroxine 100 MCG Tablet PO SCH (06:28)
[2018-01-22] MEDS: Insulin NovoLOG Aspart Correctional Sugar Inj SQ SCH ×3 (10:34→20:35)
[2018-01-22] MEDS: Insulin Detemir Inj 1,000 UNIT/10 ML Vial SQ SCH (10:35)
[2018-01-22] MEDS: Erythromycin Ethylsuccinate Susp 400 MG/5ML 100 ML Bottle PO SCH ×4 (10:36→15:33)
[2018-01-22] MEDS: hydrALAZINE 25 MG Tablet PO SCH ×2 (10:37→13:39)
[2018-01-22] MEDS: Metoprolol Tartrate 50 MG Tablet PO SCH (10:37)
[2018-01-22] MEDS: Senna/Docusate Sodium 8.6/50 MG Tablet PO SCH (10:37)
[2018-01-22] MEDS: Famotidine 20 MG Tablet PO SCH (10:37)
[2018-01-22] MEDS ORDERED: LORazepam 0.5 MG Tablet PO PRN (12:38)
[2018-01-22 13:17] VITALS: TEMP 97.7
--- NOTE | 2018-01-22 15:18 | P.PNNP ---
Subjective Interval history: glucose 600s earlier, 300s now. No acute complaints otherwise Physical Exam Vital signs: Vital Signs 01/21/18 16:00 01/21/18 16:42 01/21/18 20:00 Temperature 98.1 F 98.9 F Pulse Rate 88 94 H 91 H Respiratory Rate 19 18 Blood Pressure 158/89 H 111/64 Pulse Oximetry 97 99 01/21/18 21:30 01/22/18 00:00 01/22/18 01:45 Temperature 97.4 F L Pulse Rate 89 Respiratory Rate 18 18 18 Blood Pressure 98/55 L Pulse Oximetry 99 01/22/18 04:00 01/22/18 08:00 01/22/18 08:40 Temperature 97.9 F 97.5 F L Pulse Rate 82 87 Respiratory Rate 16 16 Blood Pressure 139/82 130/72 Pulse Oximetry 98 98 98 01/22/18 12:00 Temperature 97.7 F Pulse Rate 18 L Respiratory Rate 18 Blood Pressure 151/80 H Pulse Oximetry 98 Intake & Output 01/21/18 01/22/18 01/22/18 18:59 06:59 18:59 Intake Total 660 / 660 340 / 340 Output Total 3800 / 3800 500 / 500 Balance -3140 / -3140 -160 / -160 Weight 84.9 kg Intake: IV 100 / 100 100 / 100 Maxipime Inj 1,000 MG In NS Inj 100 / 100 100 / 100 100 ML @ 200 mls/hr IV.SIG Q24H [facility] Rx#:[id number] Oral 560 / 560 240 / 240 Output: Urine 500 / 500 Hemodialysis Amount 3800 / 3800 Other: # Voids 0 # Bowel Movements 1 - Constitutional no acute distress - Routine HEENT Exam Head: Present: normocephalic Eye: Present: EOMI ENT: Present: mucous membranes moist - Routine Neck Exam Present: supple - Routine Respiratory Exam Present: diminished air movement - Routine Cardiovascular Exam Present: RRR - Routine Abdominal Exam Present: soft - Routine Skin Exam Present: intact - Routine Neurological Exam Present: alert, oriented X3 - Detailed Neurological Exam: Coma Scale Eye Opening: Spontaneous - Urinary Catheter Management Straight Cath placed during this visit: no Assessment and Plan - Assessment (1) ESRD (end stage renal disease) Code(s): N18.6 - End stage renal disease Status: Chronic Plan: HD TTS. Tolerated HD yesterday: 3.8L UF Next HD Tuesday Avoid IVF administration. PermCath for HD use only. Fluid removal as tolerated. She still makes urine. High protein diet when able to eat. Repeat labs intermittently. On Renvela with meals. Intermittently monitor phosphorus level. (2) DKA (diabetic ketoacidoses) Code(s): E13.10 - Other specified diabetes mellitus with ketoacidosis without coma Status: Acute Plan: Glucose 600s earlier today - 300s now continue insulin adjustment (3) Diabetes mellitus Code(s): E11.9 - Type 2 diabetes mellitus without complications Status: Chronic Qualifiers: Diabetes mellitus type: type 2 Diabetes mellitus group home insulin use: with group home use Diabetes mellitus complication status: with skin complications Diabetes mellitus complication detail: with other skin complication Qualified Code(s): E11.628 - Type 2 diabetes mellitus with other skin complications; Z79.4 - FPC (current) use of insulin Plan: Resolving DKA See above. (4) Hypertension Code(s): I10 - Essential (primary) hypertension Status: Chronic Qualifiers: Hypertension type: essential hypertension Qualified Code(s): I10 - Essential (primary) hypertension Plan: Continue medications as ordered. BP stable today Pain issues and HTN tuesday with back pains - continue to monitor, given morphine last night (5) Anemia of renal disease Code(s): D63.1 - Anemia in chronic kidney disease Status: Acute Plan: Epogen not required. Hb is acceptable. (6) Infection of right hand Code(s): L08.9 - Local infection of the skin and subcutaneous tissue, unspecified Status: Chronic Plan: On cefepime. Possible HCAP per imaging. (7) DVT (deep venous thrombosis) Code(s): I82.409 - Acute embolism and thrombosis of unspecified deep veins of unspecified lower extremity Status: Chronic Qualifiers: DVT location: upper extremity Laterality: right Plan: On Apixaban, renal dose. (8) Gastroparesis Code(s): K31.84 - Gastroparesis Status: Acute Plan: GI is following. EGD with gastritis, esophagitis. Gastric pacemaker in place. Also on erythromycin. Antiemetics as needed, small meals recommended.
--- NOTE | 2018-01-22 16:10 | P.DCO ---
- Physical Therapy Order: Evaluate and treat - Occupational Therapy Order: Evaluate and treat - Home Health Nursing Order: Medical education, Signs/symptoms of disease process, Diabetic education , Wound care and dressing changes, Nursing assessment with vital signs - Certification I have seen patient Kavita Klein on 01/22/18. My clinical findings support the need for the requested home health care services because: Limited mobility due to disease progression, Deconditioned with increased weakness, Limited ability to care for self, High risk of falls I certify that my clinical findings support that this patient is homebound because: Unsteady gait/balance, Unsafe to leave home unassisted, Unable to use public transportation
--- NOTE | 2018-01-22 16:14 | P.DS ---
Date of admission: 01/17/18 15:40 Primary care physician: UNKNOWN Brief History from admission: Patient is a 52 year old female with end-stage renal disease on hemodialysis, recent left tibial fracture, Diabetes, Diabetic neuropathy, [place], Gastroparesis, Hypertension who was admitted to [facility] on . She was admitted to [place] initially on 11/30/2017 after sustaining a fall and left distal tibial fracture. She underwent intramedullary nailing on 12/05 discharged. Patient was readmitted to [facility] on 12/16/2017 with anemia and right hand wound infection. She was eventually discharged to [facility] on 12/25/2017. She has been noncompliant with insulin refusing her scheduled Levemir today a.m. being afraid of hypoglycemia during dialysis. She has had several episodes of low blood sugars. After this patient had been having sustained hyperglycemia with blood sugar in the 300s and she developed nausea and vomiting. Suspecting DKA She was transferred to ICU started on Insulin drip. DS: Medications - Discharge Medications Prescriptions: erythromycin ethylsuccinate [EryPed 400] 400 mg PO TID 30 Days #500 ml ondansetron [Zofran ODT] 4 mg PO TID PRN 30 Days #90 tab PRN Reason: Nausea And Vomiting DS: Summary Hospital Course: This is a 52-year-old female with a history of end-stage renal disease, left tibial fracture, type 2 diabetes, gastroparesis, right hand wound. She has been hospitalized for the past 2 months with complications related to her tibial fracture. She underwent surgical repair with nail on and was discharged home but returned with a wound of her right hand 12/16/2017. She eventually was discharged to [facility] on December 25 but due to episodic hypoglycemia and hyperglycemia she ended up with DKA and was transferred to the ICU. She moved out of the ICU few days ago and her care was transferred from Dr. Jurado to [facility] for holiday coverage. Patient has been interested in going home and was deemed to be appropriate for discharge yesterday by Dr. yanez but her blood glucose went to 725 due to a missed lunchtime insulin dose. She obtained her insulin pump from home and is now by her standards controlled in the 200s. She is requesting to go home and would like to leave today. She has outpatient follow up with her primary and her orthopedic surgeon. We are arranging home health care and delivery of medical devices that she has requested. - Time Spent with Patient Total time spent providing and/or coordinating discharge services: Less than 30 minutes - Quality: VTE Deep Vein Thrombosis/Pulmonary Embolism Present on Admission: No Exam Vital signs: Vital Signs 01/21/18 16:42 01/21/18 20:00 01/21/18 21:30 Temperature 98.9 F Pulse Rate 94 H 91 H Respiratory Rate 18 18 Blood Pressure 111/64 Pulse Oximetry 99 01/22/18 00:00 01/22/18 01:45 01/22/18 04:00 Temperature 97.4 F L 97.9 F Pulse Rate 89 82 Respiratory Rate 18 18 16 Blood Pressure 98/55 L 139/82 Pulse Oximetry 99 98 01/22/18 08:00 01/22/18 08:40 01/22/18 12:00 Temperature 97.5 F L 97.7 F Pulse Rate 87 18 L Respiratory Rate 16 18 Blood Pressure 130/72 151/80 H Pulse Oximetry 98 98 98 Intake & Output 01/21/18 01/22/18 01/22/18 18:59 06:59 18:59 Intake Total 660 / 660 340 / 340 Output Total 3800 / 3800 500 / 500 Balance -3140 / -3140 -160 / -160 Weight 84.9 kg Intake: IV 100 / 100 100 / 100 Maxipime Inj 1,000 MG In NS Inj 100 / 100 100 / 100 100 ML @ 200 mls/hr IV.SIG Q24H [facility] Rx#:[id number] Oral 560 / 560 240 / 240 Output: Urine 500 / 500 Hemodialysis Amount 3800 / 3800 Other: # Voids 0 # Bowel Movements 1 Results Procedures completed during hospitalization: none Pending studies at discharge: Pending at discharge 01/20/18 Surgical [PTH] Routine Labs on day of discharge: Labs from last 24 hours 01/22/18 01/22/18 01/21/18 13:20 08:01 20:46 POC Glucose 368 H 353 H Random Glucose 659 H* 01/21/18 01/21/18 01/21/18 20:17 18:04 17:54 POC Glucose Greater than 600 H* Greater than 600 H* Random Glucose 725 H* D - Impressions ITS Impressions Abdomen/Pelvis CT 01/18/18 00:00 CONCLUSION: 1. Mild nonspecific hepatomegaly. 2. Urinary bladder is distended at the time of imaging and please correlate clinically. 3. No other acute abnormality is seen within the abdomen or pelvis. Specifically, no obstruction or acute inflammatory changes. No mass or fluid collection. 4. Small hiatal hernia. 5. Small effusions and mild atelectasis of the visualized lung bases. Chest X-Ray 01/19/18 06:00 CONCLUSION: Right base consolidation has resolved. Much improvement on the left with mild consolidation and small effusions now seen at the left base. Bile Acid Absorption NM 01/20/18 00:00 CONCLUSION: 1. Negative biliary scan Discharge Plan - Discharge Disposition Patient Disposition: /Home Health Service - Discharge Condition Condition: Fair - Discharge Order Discharge Orders: Discharge Order (Routine); Ordered 01/22/18 Ordered By: Edgardo Matute - Physicians Team Primary Care Provider: UNKNOWN, Attending Provider: Meek Lindsey Other Providers: Ping Kramer MD ; Meek Lindsey, DO ; Edgardo Matute MD - Rxs /Orders / Referrals /Forms Prescriptions: New erythromycin ethylsuccinate [EryPed 400] 400 mg/5 mL Suspension For Reconstitution 400 mg PO TID 30 Days Qty: 500 RF: 0 Continue acetaminophen [Tylenol] 325 mg Tablet 650 mg PO Q4H PRN (Reason: Fever) apixaban [Eliquis] 5 mg Tablet 2.5 mg PO BID ascorbic acid (vitamin C) 500 mg Tablet 500 mg PO BID buspirone 5 mg Tablet 5 mg PO TID calcium carbonate-vitamin D3 [Oyster Shell Calcium-Vit D3] 250-125 mg-unit tablet 1 tab PO BID diphenhydramine HCl [Benadryl] 25 mg Capsule 25 mg PO TID PRN (Reason: Itching) folic acid 1 mg Tablet 1 mg PO DAILY hydralazine 25 mg tablet 25 mg PO QID hydrocodone-acetaminophen [[place]amo[place]] 7.5-325 mg Tablet 1 tab PO Q4H PRN (Reason: pain 6-10) Qty: 40 RF: 0 hyoscyamine sulfate 0.125 mg Tablet 0.125 mg PO QID PRN (Reason: Spasms) levothyroxine [Synthroid] 88 mcg Tablet 100 mcg PO DAILY lisinopril 10 mg Tablet 10 mg PO DAILY lorazepam 0.5 mg Tablet 0.5 mg PO Q8H PRN (Reason: Anxiety) Qty: 8 RF: 0 metoprolol tartrate 50 mg Tablet 50 mg PO BID nifedipine 60 mg tablet extended release 24hr 90 mg PO DAILY ondansetron [Zofran ODT] 4 mg Tablet,Disintegrating 4 mg PO TID PRN (Reason: Nausea And Vomiting) 30 Days Qty: 90 pantoprazole [Protonix] 40 mg Tablet,Delayed Release (Dr/Ec) 40 mg PO BID paroxetine HCl 10 mg Tablet 20 mg PO DAILY Discontinued furosemide [Lasix] 40 mg tablet 20 mg PO BID Ambulatory Orders / Order Sets / DME: Bedside Commode (Routine) Location: Determined by Patient Ordered By: Edgardo Matute Walker/Adult/Folding (1 each) (Routine) Location: Determined by Patient Ordered By: Edgardo Matute Wheelchair (1 each) (Routine) Location: Determined by Patient Ordered By: Edgardo Matute Referrals: UNKNOWN, [Primary Care Provider] - See Instructions
[2018-01-22 16:20] VITALS: BP 96/58; RESP 16; O2SAT 97
[2018-01-22 20:31] VITALS: PULSE 80
== END 2018-01-22 17:51 | disposition home health service (06) ==
LOC: HIMC 15:40 → N04 01-20 19:21
PROVIDERS: ADMIT Family Medicine; ATTEND Family Medicine